=== PATIENT | male | born 1940 | race Caucasian/White ===

== ENCOUNTER 2016-12-12 08:40 | Outpatient (CLI) | payer MEDICARE, OTHER ==
--- NOTE | 2016-12-12 11:21 | Ultrasound Report ---
RIGHT UPPER QUADRANT ULTRASOUND: 12/12/2016 CLINICAL INDICATION: Abnormal liver enzymes. COMPARISON: 11/21/2015. TECHNIQUE: Real-time scanning was performed with shared services representative static images obtained. FINDINGS: The liver is echogenic, compatible with fatty infiltration. It measures 13.6 cm. No intrah epatic biliary dilatation is seen, but the common bile duct is prominent, measuring 1.5 cm (previousl y 1.3 cm). The gallbladder is surgically absent. The right kidney measures 10.2 cm, and is unremarkab le. IMPRESSION: FATTY INFILTRATION OF THE LIVER. STABLE PROMINENCE OF THE COMMON BILE DUCT. JOB #: [id number] EXT JOB #:[id number]
== END 2016-12-12 08:41 | disposition home or self-care (01) ==
LOC: DI 08:40
PROVIDERS: ATTEND Family Medicine
DX: K76.0 Fatty (change of) liver, not elsewhere classified (principal)
CPT/HCPCS: 76705

== ENCOUNTER 2024-11-14 17:44 | Inpatient (IN) ==
[2024-11-14] MEDS: methylPREDNISolone SUCCINATE 125 MG/2 ML VIAL IVP STA (18:01)
[2024-11-14] MEDS: IPRATROPIUM/ALBUTEROL 3 ML NEB INH STA (18:02)
[2024-11-14 18:13] LABS: HCT - HEMATOCRIT 45.4 % (42.0-52.0); HGB - HEMOGLOBIN 14.9 g/dL (14.0-18.0); MEAN PLATELET VOLUME 10.7 fL (7.4-11.4); NRBC ABSOLUTE COUNT (AUTO) 0.00 x10^3/uL; NUCLEATED RED BLOOD CELLS AUTO 0.0 /100WBC; PLT - PLATELET COUNT 193 10^3/uL (130-450); RED CELL DISTRIBUTION WIDTH 16.0 % (12.0-15.0)
[2024-11-14 18:16] LABS: VBG BASE EXCESS -3.5 mmol/L (-2 - +2); VBG PCO2 28.0 mmHg (41-51); VBG PH 7.466 (7.31-7.41); VBG PO2 27.2 mmHg (25-47); VBG TOTAL CO2 21.3 mmol/L (24-29)
[2024-11-14 18:32] LABS: ALT ALANINE AMINOTRANSFERASE 18.0 IU/L (10-60); AST ASPARTATE AMINOTRANSFERASE 22.0 IU/L (10-42); BUN - BLOOD UREA NITROGEN 23.0 mg/dL (6-20); CARBON DIOXIDE - CO2 24.0 mmol/L (21-32); CREATININE 1.4 mg/dL (0.6-1.3); GFR - MDRD 48.0 (>89)
--- NOTE | 2024-11-14 19:41 | XRAY Report ---
PROCEDURE: XR Chest 2V INDICATIONS: respiratory distress TECHNIQUE: 2 views of the chest were acquired. COMPARISON: December 12, 2014 FINDINGS: Surgical changes and devices: None. Lungs and pleura: No pleural effusions or pneumothorax. Extensive reticular opacity throughout the lungs. Mediastinum: Mediastinal contours appear normal. Heart size is normal. Bones and chest wall: No suspicious bony lesions. Overlying soft tissues appear unremarkable. IMPRESSION: Extensive reticular opacities throughout the lungs concerning for an acute or chronic diffuse lung disease. Reviewed by: Rafael Whipple MD on 11/14/2024 7:38 PM PDT Approved by: Rafael Whipple MD on 11/14/2024 7:38 PM PDT Station ID: [id number]
--- NOTE | 2024-11-14 20:23 | ED Physician Documentation ---
History of Present Illness Stated complaint Stated Complaint: RESP DISTRESS Chief complaint Chief Complaint: Resp Additonal information Additional information: Patient is an 84-year-old male with history of emphysema, pulmonary fibrosis, A- fib on warfarin. Patient states that over the last couple days he has had increasing dyspnea, weakness, and increased respiratory requirements. At baseline he wears 3 L oxygen nasal cannula. However, over the last several days they have had increased his baseline nasal cannula and still has O2 saturations that are not staying regularly in the upper 80s as is his baseline. He denies any recent fever, chills, cough, sore throat or other symptoms of infection. He denies chest pain, palpitations. Justhad increased work of breathing. Notably, he was seen by his filling station equipment mechanic in [place] last week, and no new medication or regimen changes were made at that time. On arrival to the [place] [facility] states that he was saturating at 66% on 6 L. He did not receive a DuoNeb or other treatment and route with EMS, but was put on a nonrebreather on 15 L, and was saturating in the upper 80s and low 90s. Currently he denies any chest pain, denies headache, visual changes, abdominal pain, changes to urination or bowel movements over the last few days. Review of Systems Status of ROS: See HPI Meds/Allgy Home Medications Ambulatory Orders Medication Instructions Recorded Confirmed alprazolam 0.25 mg tablet 0.25 mg PO ONCE PRN Anxiety 05/20/14 06/03/14 amlodipine 2.5 mg tablet (Norvasc) 2.5 mg PO DAILY 08/2706/03/14 calcium ER 600 mg (as carb,cit)-D3 1 ea PO DAILY 05/2006/03/14 12.5 mcg (500 unit) tablet, ext.rel cholecalciferol (vitamin D3) 50 2,000 unit PO DAILY 06/03/14 mcg (2,000 unit) capsule (Vitamin D3) dofetilide 250 mcg capsule 250 mcg PO BID 05/20/14 (Tikosyn) magnesium oxide-magnesium amino 300 mg PO DAILY 06/03/14 acid chelate 300 mg capsule (Magnesium (oxide/AA chelate)) metoprolol tartrate 25 mg tablet 50 mg PO DAILY 06/03/14 omeprazole 20 mg capsule,delayed 20 mg PO DAILY 06/03/14 release warfarin 5 mg tablet (Jantoven) 5 mg PO DAILY 05/20/14 06/03/14 Allergies Allergies Allergy/AdvReac Type Severity Reaction Status Date / Time celecoxib (From Celebrex) Allergy Intermediate Nausea Verified 11/14/24 18:25 latex Allergy Intermediate Rash Verified 11/14/24 18:25 tramadol HCl * (From Ultram) Allergy Intermediate Nausea Verified 11/14/24 18:25 NSAIDS (Non-Steroidal Allergy Unknown Unknown Verified 11/14/24 18:25 Anti-Inflamma adhesive Allergy Rash Verified 11/14/24 18:25 PFSH Active Problems All Active Problems (Updated 11/14/24 @ 21:33 by MICHAEL Summers) Atrial fibrillation (Chronic) Pulmonary fibrosis (Acute) Acute and chronic respiratory failure (Acute) Social History Social History Smoking Status: Former smoker If you are a former smoker, when did you quit? (Date/Year): 1995 Do you dip or chew tobacco?: No Do you vape?: No Level: Independent Do you feel safe in your home environment?: Yes History of physical, verbal, emotional, or financial abuse?: No Exam Exam Vital Signs: Vital Signs x48h Temp Pulse Resp BP Pulse Ox O2 Flow Rate 11/14/24 20:18 97 41 H 114/73 87 L 11/14/24 20:18 97 30 H 83 L 11/14/24 20:04 95 41 H 89 L 11/14/24 19:48 95 36 H 109/69 89 L 11/14/24 19:48 90 28 H 109/69 90 L 11/14/24 19:32 94 38 H 108/66 89 L 11/14/24 19:18 94 20 94/73 90 L 11/14/24 18:04 97 38 H 10 11/14/24 17:48 36.3 C L 104 H 26 H 152/91 H 91 L 15 Constitutional Appears approximate stated age, moderately increased work of breathing HENMT normocephalic Eyes conjunctivae normal Neck/C-Spine cervical full ROM noted Respiratory Diminished breath sounds throughout all lung ordonez. Fine crackles throughout right lung field with scattered few wheezes. Fine crackles also heard in left lower lobe. Diminished breath sounds in left upper lobe. Saturating at 89% on nonrebreather at 15 L. Cardiovascular Regular rhythm, tachycardic to the low 100s. Normal S1-S2, no murmurs. Gastrointestinal abdomen soft to palpation, nontender to palpation and nontender to percussion Genitourinary no CVA tenderness Back/Pelvis no thoracic spine tenderness and no lumbar spine tenderness Extremities normal to inspection Neurology student officer II-XII intact and GCS 15 Psychiatry mental status grossly normal and oriented x3 Skin skin color normal Results Vitals Vitals: Vital Signs - 24 hr 11/14/24 17:48 11/14/24 18:04 11/14/24 19:18 Temperature 36.3 C L Temperature Source Temporal Artery Scan Pulse Rate 104 H 97 94 Respiratory Rate 26 H 38 H 20 Blood Pressure 152/91 H 94/73 O2 Saturation 91 L 90 L O2 Source Non-rebreather mask Oxymask If not protocol: Oxygen Flow, liters/minute 15 10 Pain Intensity 0 11/14/24 19:32 11/14/24 19:48 11/14/24 19:48 Temperature Temperature Source Pulse Rate 94 90 95 Respiratory Rate 38 H 28 H 36 H Blood Pressure 108/66 109/69 109/69 O2 Saturation 89 L 90 L 89 L O2 Source If not protocol: Oxygen Flow, liters/minute Pain Intensity 11/14/24 20:04 11/14/24 20:18 11/14/24 20:18 Temperature Temperature Source Pulse Rate 95 97 97 Respiratory Rate 41 H 30 H 41 H Blood Pressure 114/73 O2 Saturation 89 L 83 L 87 L O2 Source If not protocol: Oxygen Flow, liters/minute Pain Intensity Oxygen O2 Source Oxymask Labs Labs: Laboratory Tests 11/14/24 11/14/24 11/14/24 18:00 19:35 20:33 WBC 13.1 H RBC 5.15 Hgb 14.9 Hct 45.4 MCV 88.2 MCH 28.9 MCHC 32.8 RDW 16.0 H Plt Count 193 MPV 10.7 Neut # (Auto) 10.3 H Lymph # (Auto) 1.1 L Harrison # (Auto) 1.5 H Eos # (Auto) 0.1 Baso # (Auto) 0.0 Absolute Nucleated RBC 0.00 Nucleated RBC % 0.0 VBG pH 7.466 H VBG pCO2 28.0 L VBG pO2 27.2 VBG HCO3 20.4 L VBG Total CO2 21.3 L VBG O2 Saturation 35.0 L VBG Base Excess -3.5 L Sodium 137 Potassium 3.6 Chloride 103 Carbon Dioxide 24 Anion Gap 10.0 BUN 23 H Creatinine 1.4 H Estimated GFR (MDRD) 48 L Glucose 147 H Calcium 8.7 Total Bilirubin 1.9 H AST 22 ALT 18 Alkaline Phosphatase 100 Troponin I High Sens 30.0 H* 35.4 H* B-Natriuretic Peptide 804 H Total Protein 7.1 Albumin 3.8 Globulin 3.3 Albumin/Globulin Ratio 1.2 Procalcitonin Immunoas 0.16 Nasal Adenovirus (PCR) NOT DETECTED Nasal B. parapertussis DNA (PCR) NOT DETECTED Nasal Coronavir 229E PCR NOT DETECTED Nasal Coronavir HKU1 PCR NOT DETECTED Nasal Coronavir NL63 PCR NOT DETECTED Nasal Coronavir OC43 PCR NOT DETECTED Nasal Enterovir/Rhinovir PCR NOT DETECTED Nasal Influenza B PCR NOT DETECTED Nasal Influenza A PCR NOT DETECTED Nasal Parainfluen 1 PCR NOT DETECTED Nasal Parainfluen 2 PCR NOT DETECTED Nasal Parainfluen 3 PCR NOT DETECTED Nasal Parainfluen 4 PCR NOT DETECTED Nasal RSV (PCR) NOT DETECTED Nasal B.pertussis DNA PCR NOT DETECTED Nasal C.pneumoniae (PCR) NOT DETECTED Virgil Human Metapneumo PCR NOT DETECTED Nasal M.pneumoniae (PCR) NOT DETECTED Nasal SARS-CoV-2 (PCR) NOT DETECTED PD Medical Decision Making ED course ED course: Assessment: Patient is an 84-year-old male who presents via EMS for respiratory distress/hypoxia. Patient has a history of emphysema, as well as pulmonary fibrosis. According to patient and at bedside he has been gradually having escalating oxygen requirements over the last week. When EMS arrived he was saturating at 66% on 5 L. Denies fever, chills, productive cough. Denies chest pain or palpitations. DDx: Includes but not limited to, acute on chronic hypoxic respiratory failure, pulmonary fibrosis, viral upper respiratory illness, viral pneumonia, bacterial pneumonia, COPD exacerbation, etc. Workup: CBC with white count of 13.1. VBG with a pH of 7.466, pCO2 of 28, bicarb 20.4. CMP with a BUN of 23, creatinine 1.4 with unknown baseline. T. bili 1.9. Initial troponin 30.0, repeat at 2-1/2 hours is 35.4. Respiratory panel is negative. Chest x-ray with extensive reticular fine opacities throughout his lungs which appear to suggest acute on chronic lung disease. CT chest with chronic idiopathic pulmonary fibrosis without other acute or other superimposed abnormality. Treatment: Methylprednisolone 125 milligrams, DuoNeb. Discussion: Patient had improvement after treatments and nonrebreather. Was saturating routinely at 88 to 92% on [address], x-ray, respiratory panel, procalcitonin, and workup overall do not suggest viral upper respiratory illness. Does not appear to have a pneumonia. Likely this is acute on chronic worsening of pulmonary fibrosis. He has only had a few scattered wheezes, and did not necessarily appear consistent with a COPD exacerbation. However after DuoNebs he did report some modest symptomatic improvement. Hopefully the steroids that we gave him today will help him with his underlying fibrosis. I discussed his presentation with on-call hospitalist and felt that he should be admitted the ICU given his high chance of increasing respiratory requirements while admitted for respiratory failure. Explained to patient that with his tenuous respiratory status he would need to go to the ICU and discharge home would not be reasonable to which he was agreeable. Patient was transferred to the ICU during my shift with no other acute events transpiring. Discharge Plan Discharge Patient Disposition: [facility] DC/Xfer Condition: Fair Clinical Impression: Acute and chronic respiratory failure Interventions: ED Admission Assessment Last Done: 11/14/24 21:10 Vitals documented within 30 minutes of discharge?: Yes
--- NOTE | 2024-11-14 20:50 | CT Report ---
PROCEDURE: CT Chest W INDICATIONS: hx of pulm fibrosis, respiratory distress today CONTRAST: 70cc [id number] TECHNIQUE: After the administration of intravenous contrast, a CT scan of the chest was performed. Images were recorded and evaluated at appropriate window settings. Reformats: axial MIP of the chest, coronal and sagittal. For radiation dose reduction, the following was used: automated exposure control, adjustment of mA and/or kV according to patient size. COMPARISON: None. FINDINGS: Image quality: Diagnostic. Chest wall and lower neck: No thyroid nodule which requires sonographic follow up. No breast mass. No axillary or supraclavicular adenopathy by size. Lungs and pleura: Extensive reticulation and honeycombing with no superimposed acute consolidation. No pleural effusions. No pneumothorax. No suspicious pulmonary nodules which require follow up. Mediastinum: Heart size is normal. No pericardial effusion. No large vessel abnormality. No mediastinal adenopathy by size criteria. Bones: No aggressive osseous abnormality. Upper Abdomen: Cholecystectomy. IMPRESSION: Chronic idiopathic pulmonary fibrosis. No superimposed acute abnormality. Reviewed by: Rafael Whipple MD on 11/14/2024 8:47 PM PDT Approved by: Rafael Whipple MD on 11/14/2024 8:47 PM PDT Station ID: [id number]
[2024-11-14 20:51] LABS: CORONAVIRUS 229E-RESP PCR NOT DETECTED; CORONAVIRUS HKU1-RESP PCR NOT DETECTED
[2024-11-14 20:52] LABS: B. PARAPERTUSSIS- RESP PCR PAN NOT DETECTED; B. PERTUSSIS- RESP PCR PANEL NOT DETECTED; C. PNEUMONIAE- RESP PCR PANEL NOT DETECTED; CORONAVIRUS NL63-RESP PCR NOT DETECTED; CORONAVIRUS OC43-RESP PCR NOT DETECTED; HUMAN METAPNEUMOVIRUS NOT DETECTED; INFLUENZA A- RESP PCR PANEL NOT DETECTED; INFLUENZA B - RESP PCR PANEL NOT DETECTED; M. PNEUMONIAE- RESP PCR PANEL NOT DETECTED; PARAINFLUENZA VIRUS 1 NOT DETECTED; PARAINFLUENZA VIRUS 2 NOT DETECTED; PARAINFLUENZA VIRUS 4 NOT DETECTED; RHINOVIRUS/ENTEROVIRUS NOT DETECTED; RSV- RESP PCR PANEL NOT DETECTED; SARS-CoV-2 -RESP PCR PANEL NOT DETECTED
--- NOTE | 2024-11-14 20:52 | HISTORY & PHYSICAL EXAMINATION ---
Chief Complaint Chief Complaint Chief Complaint: shortness of breath History of Present Illness Admitted From Admitted From:: home History Obtained From Records Reviewed: ED provider note History obtained from: patient, spouse and son at bedside History of Present Illness HPI Comment/Other: 84-year-old male who is oxygen dependent on 3 L at home presents to the emergency department with a 4 to 5-day history of increasing shortness of breath and increasing oxygen requirements at home. It was reported by EMS that when they arrived at his home he was satting 66% on 5 L of oxygen via nasal cannula. His diagnosis of pulmonary fibrosis is quite recent. He saw pulmonology, Dr. Hill just within the last 2 weeks for the first time. Since he has been in the emergency department he has received bronchodilators and steroids. He is somewhat improved, more comfortable and less dyspneic on a nonrebreather mask but still with tachypnea and dropping oxygen saturations with any activity at all. Even moving about in bed causes him to desaturate. He has not had any recent URI, nor has anyone at home been sick. has not had fever or chills. Brief goals of care discussion held in the ED. This patient does not want to be permanently on machines to live, but wants attempts at resuscitation. has never heard of a POLST, and thinks that he wants to be full code. he does not understand any prognosis for his pulmonary fibrosis. His is his surrogate medical decision maker. Meds/Allgy Home Medications Ambulatory Orders Medication Instructions Recorded Confirmed alprazolam 0.25 mg tablet 0.25 mg PO ONCE PRN Anxiety 05/20/14 06/03/14 amlodipine 2.5 mg tablet (Norvasc) 2.5 mg PO DAILY 08/2706/03/14 calcium ER 600 mg (as carb,cit)-D3 1 ea PO DAILY 05/2006/03/14 12.5 mcg (500 unit) tablet, ext.rel cholecalciferol (vitamin D3) 50 2,000 unit PO DAILY 06/03/14 mcg (2,000 unit) capsule (Vitamin D3) dofetilide 250 mcg capsule 250 mcg PO BID 05/20/14 (Tikosyn) magnesium oxide-magnesium amino 300 mg PO DAILY 04/07/ 15 04/21/15 acid chelate 300 mg capsule (Magnesium (oxide/AA chelate)) metoprolol tartrate 25 mg tablet 50 mg PO DAILY 06/03/14 omeprazole 20 mg capsule,delayed 20 mg PO DAILY 06/03/14 release warfarin 5 mg tablet (Jantoven) 5 mg PO DAILY 05/20/14 06/03/14 Allergies Allergies Allergy/AdvReac Type Severity Reaction Status Date / Time celecoxib (From Celebrex) Allergy Intermediate Nausea Verified 11/14/24 18:25 latex Allergy Intermediate Rash Verified 11/14/24 18:25 tramadol HCl * (From Ultram) Allergy Intermediate Nausea Verified 11/14/24 18:25 NSAIDS (Non-Steroidal Allergy Unknown Unknown Verified 11/14/24 18:25 Anti-Inflamma adhesive Allergy Rash Verified 11/14/24 18:25 PFSH Active Problems All Active Problems (Updated 11/14/24 @ 21:33 by MICHAEL Summers) Atrial fibrillation (Chronic) Pulmonary fibrosis (Acute) Acute and chronic respiratory failure (Acute) Social History Social History If you are a former smoker, when did you quit? (Date/Year): 1995 Do you dip or chew tobacco?: No Do you feel safe in your home environment?: Yes History of physical, verbal, emotional, or financial abuse?: No POLST Patient has POLST: No Review of Systems Status of ROS: 10 or more systems reviewed and unremarkable except as noted in history and below Prior Level of Functionality: independent at home. increasing difficulty with activities. Exam Exam Vital Signs: Vital Signs x48h Temp Pulse Pulse Resp BP BP Pulse Ox 11/14/24 21:15 37.8 C 99 20 125/85 87 L 11/14/24 20:48 98 40 H 123/76 89 L 11/14/24 20:18 97 41 H 114/73 87 L 11/14/24 20:18 97 30 H 83 L 11/14/24 20:04 95 41 H 89 L 11/14/24 19:48 95 36 H 109/69 89 L 11/14/24 19:48 90 28 H 109/69 90 L 11/14/24 19:32 94 38 H 108/66 89 L 11/14/24 19:18 94 20 94/73 90 L 11/14/24 18:04 97 38 H 11/14/24 17:48 36.3 C L 104 H 26 H 152/91 H 91 L O2 Flow Rate 11/14/24 21:15 7 11/14/24 20:48 11/14/24 20:18 11/14/24 20:18 11/14/24 20:04 11/14/24 19:48 11/14/24 19:48 11/14/24 19:32 11/14/24 19:18 11/14/24 18:04 10 11/14/24 17:48 15 Constitutional normal general appearance and no apparent distress appear dyspneic and mildly uncomfortable. HENMT normocephalic, external ears normal, nasal mucous membranes normal and dentition normal Eyes conjunctivae normal Neck/C-Spine visual inspection normal Lymph no lymphadenopathy noted Chest inspection of chest normal and palpation of chest normal Respiratory breath sounds equal bilaterally, no wheezes and no use of accessory muscles fine crackles throughout. tachypneic. Cardiovascular normal heart rate noted 1+ edema at ankles. Gastrointestinal abdomen normal to inspection Back/Pelvis spine normal to inspection Extremities normal to inspection Neurology filling station attendant II-XII intact and GCS 15 Psychiatry mental status grossly normal, oriented x3, thought process normal, cooperative and affect normal Skin slight cyanosis noted at the fingertips, tip of nose, around his lips Conclusion/Plan Problem List (1) Acute and chronic respiratory failure: Plan: Acute on chronic hypoxic respiratory failure. This patient is oxygen dependent at home on 3 L via nasal cannula he has been experiencing increasing hypoxia at home for the last 4 to 5 days. Increasing dyspnea on any type of exertion and decreasing oxygen saturations 66% at home on 5 L via nasal cannula. He was brought into the hospital on a nonrebreather. He was given DuoNeb and Solu- Medrol in the emergency department. He continues to require nonrebreather to maintain saturations greater than 88%. And he remains tachypneic with a rate in the high 30s to low 40s. He has had a chest CT to rule out other causes aside from worsening pulmonary fibrosis. The chest CT is significant for pulmonary fibrosis. Respiratory PCR panel is negative. He is not coughing up significant amounts of sputum. I had very little in the way of background clinical information on this patient. His primary care provider is Dr. Nassar and in general he tends to go to [facility]. They [place] of [place] and this was the closest place for them to come given his current situation. I do not know if this patient has right heart failure. I do not know if he has an echocardiogram from the past. I have ordered an echocardiogram for the morning.. My plan is to admit him to the ICU for close respiratory monitoring overnight. He may require BiPAP ventilation overnight. At this time the patient would like to be intubated if his respiratory status requires it Discussed with Dr. Hunt in the emergency department and the decision was made to admit this patient for steroids bronchodilators and close respiratory monitoring in the ICU.. (2) Pulmonary fibrosis: Plan: Idiopathic pulmonary fibrosis. Just recently evaluated by tests superintendent for the first time. Patient seems unaware regarding the serious prognosis that is typically associated with pulmonary fibrosis. I have requested Dr. Hill's most recent office note and would expect to receive this in the morning as it is currently after office hours. This patient has an elevated BNP of around 800. He also shows 1+ pedal edema in his lower extremities. I believe this is likely secondary to right heart failure. I have ordered an echocardiogram for the morning. Overnight my plan is to support him with steroids to reduce inflammation and bronchodilators. (3) Atrial fibrillation: Plan: Atrial fibrillation, home medication list has not been reconciled at this time but I felt it best to go ahead and order his metoprolol to tartrate 50 mg daily. He is anticoagulated on warfarin. I have ordered an a.m. INR. Can then dose his warfarin accordingly. His heart rate seems well-controlled this evening. Initial troponin was 30 at 1800 repeat 2-1/2 hours later is 35. I believe this is just related to the strain associated with what is most likely right heart failure. He had an EKG on admission this evening which shows sinus tachycardia at a rate of 106. Plan I have spent 85 minutes in the care of this patient today. This includes time [id number], review and ordering of diagnostic imaging and laboratory studies and consultation with other providers. Monitoring the patient's signs symptoms, evaluation of medication effectiveness and patient's response to treatment. Lab Results Lab results reviewed: Yes 11/14/24 18:00 11/14/24 18:00 Diagnostic Imaging Results Diagnostic Imaging Results Comments: Chest x-ray shows pulmonary fibrosis new Chest CT also shows pulmonary fibrosis EKG Results EKG Interpreted Independently: Yes EKG Findings: Sinus tachycardia patient not currently in atrial fibrillation. Core Measures Anticipated LOS I expect patient to be DC'd or transferred within 96 hours.: Yes DVT/VTE - Prophylaxis VTE/DVT Device ordered at admit?: Yes Not Ordered - Medical Reason: Not indicated (Warfarin treatment)
[2024-11-14] MEDS ORDERED: ONDANSETRON ODT 4 MG TABLET TL PRN (20:59)
[2024-11-14] MEDS ORDERED: ACETAMINOPHEN 650 MG SUPP PR PRN (20:59)
[2024-11-14] MEDS ORDERED: IPRATROPIUM/ALBUTEROL 3 ML NEB INH PRN (20:59)
[2024-11-14] MEDS: SODIUM CHLORIDE FLUSH 0.9% 10 ML SYRINGE IVP SCH (22:09)
[2024-11-14] MEDS: methylPREDNISolone SUCCINATE 40 MG/ML VIAL IVP SCH (22:09)
[2024-11-15 05:56] LABS: HCT - HEMATOCRIT 41.3 % (42.0-52.0); HGB - HEMOGLOBIN 13.8 g/dL (14.0-18.0); MEAN PLATELET VOLUME 10.9 fL (7.4-11.4); NRBC ABSOLUTE COUNT (AUTO) 0.00 x10^3/uL; NUCLEATED RED BLOOD CELLS AUTO 0.0 /100WBC; PLT - PLATELET COUNT 170 10^3/uL (130-450); RED CELL DISTRIBUTION WIDTH 15.7 % (12.0-15.0)
[2024-11-15 06:14] LABS: BUN - BLOOD UREA NITROGEN 24.0 mg/dL (6-20); CARBON DIOXIDE - CO2 22.0 mmol/L (21-32); CREATININE 1.2 mg/dL (0.6-1.3); GFR - MDRD 57.0 (>89)
[2024-11-15 06:26] LABS: INR 3.0 (0.8-1.2); PT - PROTHROMBIN TIME 33.0 secs (9.9-12.6)
--- NOTE | 2024-11-15 07:08 | PROVIDER PROGRESS NOTE ---
Subjective Prog Note Date Prog Note Date: 11/15/24 Prog Note Time: 07:03 Subjective Subjective: The patient is an 84-year-old male with a recent diagnosis of pulmonary fibrosis who presents with acute on chronic hypoxemic respiratory failure. Reportedly with saturations down in the 60s in the community prior to arrival to the hospital. He has required high levels of oxygen thus far. VBG in the ED revealed very minor respiratory alkalosis. Otherwise his BNP has been relatively unremarkable. His kidney function is mildly decreased on admission but resolves on hospital day 1. Overnight from admission, he initially started on 8 to 9 L via simple mask. He has been weaned down to 4 L and satting 91%. He becomes very dyspneic and desaturates with mild exertion. Labs this morning reveal INR of 3, creatinine 1.2, hemoglobin 13.8. No leukocytosis. Extensive conversation with the family and the patient at bedside. See ACP note from today. Current Medications Current Medications Current Medications: Current Medications Generic Name Dose Route Start Last Admin Trade Name Freq PRN Reason Stop Dose Admin Acetaminophen 650 mg 11/14/24 20:59 Acetaminophen 650 Mg Supp MT Q6HR PRN Pain or Fever > 38C (100.4F) Albuterol/Ipratropium 3 ml 11/14/24 20:59 Ipratropium/Albuterol 3 Ml Neb INH Q4HR PRN Wheezing Methylprednisolone 40 mg 11/14/24 22:00 11/15/24 05:58 Methylprednisolone Succinate 40 Mg/Ml Vial IVP 40 mg TID REN Administration Metoprolol Tartrate 50 mg 11/15/24 09:00 Metoprolol Tartrate 50 Mg Tablet PO DAILY [facility] Ondansetron HCl 4 mg 11/14/24 20:59 Ondansetron Odt 4 Mg Tablet TL Q4HR PRN Nausea / Vomiting Sodium Chloride 10 ml 11/14/24 20:59 Sodium Chloride Flush 0.9% 10 Ml Syringe IVP PRN PRN NEEDED PER PROVIDER ORDERS Sodium Chloride 10 ml 11/15/24 01:00 11/14/24 22:09 Sodium Chloride Flush 0.9% 10 Ml Syringe IVP 10 ml 0100,0900,1700 REN Administration Objective Vital Signs/Intake & Output Vital Signs: Vital Signs x48h Temp Pulse Resp BP BP Pulse Ox O2 Flow Rate 11/15/24 06:00 36.7 C 79 21 98/69 89 L 4 11/15/24 05:30 20 92 4 11/15/24 05:10 36 H 83 L 4 11/15/24 05:00 80 23 109/67 90 L 4 11/15/24 04:00 73 19 94/61 95 4 11/15/24 03:00 75 22 99/59 L 96 4 11/15/24 02:00 84 19 100/66 97 4 11/15/24 01:00 80 23 91/60 93 4 11/15/24 00:30 36.6 C 90 29 H 99/64 89 L 4 11/15/24 00:00 85 23 82/52 L 96 6 Intake & Output: Intake & Output 11/12/24 11/13/24 11/14/24 11/15/24 23:59 23:59 23:59 23:59 Output Total 0 / 0 350 / 350 Balance 0 / 0 -350 / -350 Weight (kg) 70.5 kg Objective Comments/Other: GEN: No acute distress HEENT: NC/AT, normal appearance of external ears and nose. Hearing baseline. Cardiac: Irregular rhythm, rate controlled. No murmurs appreciated. Pulm: Fine crackles diffusely throughout his lungs. No wheezing appreciated. No cough. Abdomen: Soft, nontender, nondistended. No rebound or guarding Extremities: Moves all 4 extremities equally. Normal tone. Neuro: Face symmetric, CN II through XII intact grossly. No focal deficits appreciated Psych: Mood euthymic with congruent affect. Good insight. Exceptional historian Lab Results 11/15/24 04:59 11/15/24 04:59 Other Labs: Lab Results x24hrs 11/15/24 11/14/24 11/14/24 Range/Units 04:59 21:25 20:33 WBC 9.2 (4.8-10.8) x10^3/uL RBC 4.70 (4.70-6.10) 10^6/uL Hgb 13.8 L (14.0-18.0) g/dL Hct 41.3 L (42.0-52.0) % MCV 87.9 (80.0-94.0) fL MCH 29.4 (27.0-31.0) pg MCHC 33.4 (32.0-36.0) g/dL RDW 15.7 H (12.0-15.0) % Plt Count 170 (130-450) 10^3/uL MPV 10.9 (7.4-11.4) fL Neut # (Auto) 8.3 H (1.5-6.6) 10^3/uL Lymph # (Auto) 0.7 L (1.5-3.5) 10^3/uL Ector # (Auto) 0.2 (0.0-1.0) 10^3/uL Eos # (Auto) 0.0 (0.0-0.7) 10^3/uL Baso # (Auto) 0.0 (0.0-0.1) 10^3/uL Absolute Nucleated RBC 0.00 x10^3/uL Nucleated RBC % 0.0 /100WBC PT 33.0 H (9.9-12.6) secs INR 3.0 H (0.8-1.2) VBG pH (7.31-7.41) VBG pCO2 (41-51) mmHg VBG pO2 (25-47) mmHg VBG HCO3 (23-28) mmol/L VBG Total CO2 (24-29) mmol/L VBG O2 Saturation (60-80) % VBG Base Excess (-2 - +2) mmol/L Sodium 137 (135-145) mmol/L Potassium 4.0 (3.5-4.5) mmol/L Chloride 106 (101-111) mmol/L Carbon Dioxide 22 (21-32) mmol/L Anion Gap 9.0 (6-13) BUN 24 H (6-20) mg/dL Creatinine 1.2 (0.6-1.3) mg/dL Estimated GFR (MDRD) 57 L (>89) Glucose 181 H (74-104) mg/dL Calcium 8.5 (8.5-10.3) mg/dL Total Bilirubin (0.2-1.0) mg/dL AST (10-42) IU/L ALT (10-60) IU/L Alkaline Phosphatase (42-121) IU/L Troponin I High Sens 35.4 H* (2.3-19.7) ng/L B-Natriuretic Peptide (5-100) pg/mL Total Protein (6.4-8.9) g/dL Albumin (3.2-5.5) g/dL Globulin (2.1-4.2) g/dL Albumin/Globulin Ratio (1.0-2.2) Procalcitonin Immunoas (<0.5) ng/mL Nasal Adenovirus (PCR) Nasal B. parapertussis DNA (PCR) Nasal Coronavir 229E PCR Nasal Coronavir HKU1 PCR Nasal Coronavir NL63 PCR Nasal Coronavir OC43 PCR Nasal Enterovir/Rhinovir PCR Nasal Influenza B PCR Nasal Influenza A PCR Nasal Parainfluen 1 PCR Nasal Parainfluen 2 PCR Nasal Parainfluen 3 PCR Nasal Parainfluen 4 PCR Nasal RSV (PCR) Nasal Screen MRSA (PCR) NEGATIVE (NEGATIVE) Nasal B.pertussis DNA PCR Nasal C.pneumoniae (PCR) Virgil Human Metapneumo PCR Nasal M.pneumoniae (PCR) Nasal SARS-CoV-2 (PCR) 11/14/24 11/14/24 Range/Units 19:35 18:00 WBC 13.1 H (4.8-10.8) x10^3/uL RBC 5.15 (4.70-6.10) 10^6/uL Hgb 14.9 (14.0-18.0) g/dL Hct 45.4 (42.0-52.0) % MCV 88.2 (80.0-94.0) fL MCH 28.9 (27.0-31.0) pg MCHC 32.8 (32.0-36.0) g/dL RDW 16.0 H (12.0-15.0) % Plt Count 193 (130-450) 10^3/uL MPV 10.7 (7.4-11.4) fL Neut # (Auto) 10.3 H (1.5-6.6) 10^3/uL Lymph # (Auto) 1.1 L (1.5-3.5) 10^3/uL Ector # (Auto) 1.5 H (0.0-1.0) 10^3/uL Eos # (Auto) 0.1 (0.0-0.7) 10^3/uL Baso # (Auto) 0.0 (0.0-0.1) 10^3/uL Absolute Nucleated RBC 0.00 x10^3/uL Nucleated RBC % 0.0 /100WBC PT (9.9-12.6) secs INR (0.8-1.2) VBG pH 7.466 H (7.31-7.41) VBG pCO2 28.0 L (41-51) mmHg VBG pO2 27.2 (25-47) mmHg VBG HCO3 20.4 L (23-28) mmol/L VBG Total CO2 21.3 L (24-29) mmol/L VBG O2 Saturation 35.0 L (60-80) % VBG Base Excess -3.5 L (-2 - +2) mmol/L Sodium 137 (135-145) mmol/L Potassium 3.6 (3.5-4.5) mmol/L Chloride 103 (101-111) mmol/L Carbon Dioxide 24 (21-32) mmol/L Anion Gap 10.0 (6-13) BUN 23 H (6-20) mg/dL Creatinine 1.4 H (0.6-1.3) mg/dL Estimated GFR (MDRD) 48 L (>89) Glucose 147 H (74-104) mg/dL Calcium 8.7 (8.5-10.3) mg/dL Total Bilirubin 1.9 H (0.2-1.0) mg/dL AST 22 (10-42) IU/L ALT 18 (10-60) IU/L Alkaline Phosphatase 100 (42-121) IU/L Troponin I High Sens 30.0 H* (2.3-19.7) ng/L B-Natriuretic Peptide 804 H (5-100) pg/mL Total Protein 7.1 (6.4-8.9) g/dL Albumin 3.8 (3.2-5.5) g/dL Globulin 3.3 (2.1-4.2) g/dL Albumin/Globulin Ratio 1.2 (1.0-2.2) Procalcitonin Immunoas 0.16 (<0.5) ng/mL Nasal Adenovirus (PCR) NOT DETECTED Nasal B. parapertussis DNA (PCR) NOT DETECTED Nasal Coronavir 229E PCR NOT DETECTED Nasal Coronavir HKU1 PCR NOT DETECTED Nasal Coronavir NL63 PCR NOT DETECTED Nasal Coronavir OC43 PCR NOT DETECTED Nasal Enterovir/Rhinovir PCR NOT DETECTED Nasal Influenza B PCR NOT DETECTED Nasal Influenza A PCR NOT DETECTED Nasal Parainfluen 1 PCR NOT DETECTED Nasal Parainfluen 2 PCR NOT DETECTED Nasal Parainfluen 3 PCR NOT DETECTED Nasal Parainfluen 4 PCR NOT DETECTED Nasal RSV (PCR) NOT DETECTED Nasal Screen MRSA (PCR) (NEGATIVE) Nasal B.pertussis DNA PCR NOT DETECTED Nasal C.pneumoniae (PCR) NOT DETECTED Virgil Human Metapneumo PCR NOT DETECTED Nasal M.pneumoniae (PCR) NOT DETECTED Nasal SARS-CoV-2 (PCR) NOT DETECTED Diagnostic Imaging Diagnostic Imaging Results: positive Final report reviewed and Read independently Diagnostic Imaging Comments: Extensive honeycombing on his chest CT. Consistent with diagnosis of pulmonary fibrosis. No focal consolidations. No effusions. Assessment/Plan Problem List (1) Acute and chronic respiratory failure: Impression: Stable to minimally improved Downtrending oxygen requirement, but still requiring significant oxygen via nasal cannula. Suspect his presentation is mostly related to his pulmonary fibrosis given his progressive presentation. Workup subacute causes of fibrosis flare are unfortunately unrevealing. Most of this is likely idiopathic. Negative viral panel. No focal consolidations. No clear environmental triggers. - Wean oxygen as tolerated, goal sat 88 to 92% - Continue Solu-Medrol 40 mg 3 times daily for now, if he responds we will likely apply a slow taper - Will not intubate, okay for noninvasive ventilation, see ACP note 11/15 - No clear indication for antibiotics at this time - Trialing one-time dose of Lasix IV to assess for effect - Pending echocardiogram Qualifiers: Respiratory failure complication: hypoxia Qualified Code(s): J96.21 - Acute and chronic respiratory failure with hypoxia (2) Pulmonary fibrosis: Impression: An unfortunate new diagnosis for this patient. 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 Typical findings on chest CT. Diagnosed in February 2024, has had progression of his disease since then. Just met with pulmonology in October. His entry examiner is Dr. Júnior Hill, records request was placed by admitting hospitalist. - Treating for flare as above - Will follow-up on Dr. Hill last note - Given the progressive nature of this disease, this gentleman may just be reaching the end stages of his fibrosis. - If he survives, may benefit from antifibrotic agents at discharge, will assess with his entry examiner at that time - Family considering hospice - Reasonable to continue GLAZE CARRIER inhaler - Consider palliative approaches as well, breathing coaching will try and get a fan in his room to blow in his face this may help with dyspnea (3) Atrial fibrillation: Impression: Longstanding history of atrial fibrillation. Normally anticoagulated with warfarin. INR on admission 3.0. He currently is rate controlled. - Continue Lopressor 50 mg twice daily, home med - Resume warfarin tomorrow, INR high end of therapeutic today. - Ongoing GOC as above - Echocardiogram as above Qualifiers: Atrial fibrillation type: longstanding persistent Qualified Code(s): I 48.11 - Longstanding persistent atrial fibrillation (4) Hypertension: Impression: Patient is typically on amlodipine for hypertension. Notably amlodipine and calcium channel blockers may provide a protective role in fibrosis, do not see any clear research that suggest that they are helpful in a flare. Will hold off on resuming this at this point in time. - Hold amlodipine 2.5 mg twice daily - Metoprolol as above Qualifiers: Hypertension type: primary hypertension Qualified Code(s): I10 - Essential (primary) hypertension (5) Anxiety: Impression: Patient on alprazolam 0.25 mg twice daily every 12 hours as needed in the community. Reasonable to resume here to avoid any withdrawal symptoms. (6) Dysphagia: Impression: Patient describes a globus sensation that he has been having for months and is being worked up in the community. Interestingly has been associated with a scant hemoptysis. Not sure if this is an eosinophilic esophagitis or other atopic reaction. Happens with certain foods but not all foods. He is not bothered by this for now. He has tolerated his diet so far. Had planned for ENT follow-up on 11/18, this appointment has been pending for some time. - Noted, of unclear significance Qualifiers: Dysphagia type: esophageal phase Qualified Code(s): R13.19 - Other dysphagia
[2024-11-15] MEDS: METOPROLOL TARTRATE 50 MG TABLET PO SCH (08:05)
--- NOTE | 2024-11-15 10:27 | ADVANCE CARE PLANNING NOTE ---
Advance Care Planning Planning Encounter Date: 11/15/24 Time: 10:25 Diagnosis for Encounter (1) Acute and chronic respiratory failure: (2) Pulmonary fibrosis: (3) Atrial fibrillation: Encounter Additional Discussion: Mr. Leon is a very pleasant 56-year-old gentleman I met with the patient, his , and his adult son Loy at bedside. Patient is able to participate in the conversation. We discussed the progressive nature of his idiopathic pulmonary fibrosis. He is getting used to his new diagnosis. He only was incidentally diagnosed with this condition earlier this year after he had pneumonia. He has only had 1 appointment with pulmonology and that was only done within the last month. He has noted over the last year that he has had progressive chronic hypoxemic respiratory failure needing more and more oxygen at home. He has a concentrator at home that he has been using between 3 and 5 L on. This worsened over the week preceding admission. He stated really good understanding of the progressive nature of his disease and there is not any particular treatment that can reverse or improve his fibrosis. He knows that there may be medicines that can slow the progression of it, but acknowledges that he is nearing a terminal point of chronic hypoxemia. We discussed that he is currently in a flare, and I do not know how much he will improve with acute treatments. We will keep trying steroids and a brief trial of diuretic today to attempt to improve his oxygenation. I described that I do not feel intubation serves his body much benefit. Without a clear reversible cause of the progression of his disease, I feel that if he were to be intubated he would likely on the ventilator. He agrees that this is not what he would like. We agreed that he would be amenable to noninvasive ventilation as we attempted the treatments above. Seeing that he would not want invasive ventilation, CPR is also not a reasonable therapeutic intervention for him. Patient is strongly considering with his family at bedside whether hospice is the next best step for him given the progressive nature of his disease over the last 9 months. He is aware of hospice, his is very aware of hospice and is worked with other friends and family have been on hospice. For now, the patient is DNR, DNI. We will attempt to optimize his respiratory status, but if unable to do so he may go home with hospice. Code Status: Do Not Attempt Resuscitation Time spent on advance care plannin
--- NOTE | 2024-11-15 11:38 | PHARMACY PROGRESS NOTE ---
Best Possible Medication History Admit Date and Time: 11/14/242034 Home Medications Medication Instructions Recorded Confirmed Type alprazolam 0.25 mg tablet 0.25 mg PO BID Anxiety 05/2011/15/24 History amlodipine 2.5 mg tablet (Norvasc) 2.5 mg PO BID 05/2011/15/24 History omeprazole 20 mg capsule,delayed 20 mg PO BID 05/20/14 11/15/24 History release warfarin 5 mg tablet (Jantoven) 5 mg PO DAILY 05/20/14 11/15/24 History budesonide 160 mcg-glycopyr 9 2 inh inhalation DAILY 1 11/15/24 History mcg-formot 4.8 mcg/actuation HFA inhaler (Breztri Aerosphere) cholecalciferol (vitamin D3) 25 2,000 unit PO DAILY 11/15/24 History mcg (1,000 unit) tablet cholestyramine 4 gram oral powder 4 g PO DAILY 5 11/15/24 History for suspension in a packet (Cholestyramine Light) metoprolol tartrate 50 mg tablet 50 mg PO BID 11/15/24 11/15/24 History Processed by: Pharmacy Medications reviewed in ED?: No Medication History completed: Yes Patient Interview: Completed Secondary Source(s): Written medication list (written list says metoprolol 25mg bid, insurance filling 50mg bid and confirms not splitting the tablet prior to giving), Spouse/Significant other and Insurance records [facility] Statement: As the person ultimately responsible for medication therapy, providers are able to order a medication from an existing home medication list in [facility] via the "Reconcile Routine" prior to Confirmation of that medication by direct support professional. Such practice is discouraged except when the physician, in their clinical judgment, deems that a medical need exists for a medication without regard to previous use.
[2024-11-15] MEDS ORDERED: FUROSEMIDE 20 MG/2 ML VIAL IVP SCH (13:00)
[2024-11-15] MEDS ORDERED: NON FORMULARY MED (Budesonide-Glycopyr-Formoterol [Breztri Aerosphere] 160-9-4.8 mcg/actua INH SCH (13:00)
[2024-11-15] MEDS: FUROSEMIDE 20 MG/2 ML VIAL IVP ONE (14:53)
[2024-11-16 04:33] LABS: HCT - HEMATOCRIT 39.5 % (42.0-52.0); HGB - HEMOGLOBIN 12.7 g/dL (14.0-18.0); MEAN PLATELET VOLUME 11.0 fL (7.4-11.4); NRBC ABSOLUTE COUNT (AUTO) 0.00 x10^3/uL; NUCLEATED RED BLOOD CELLS AUTO 0.0 /100WBC; PLT - PLATELET COUNT 181 10^3/uL (130-450); RED CELL DISTRIBUTION WIDTH 15.7 % (12.0-15.0)
[2024-11-16 04:42] LABS: INR 3.7 (0.8-1.2); PT - PROTHROMBIN TIME 40.3 secs (9.9-12.6)
[2024-11-16 04:50] LABS: BUN - BLOOD UREA NITROGEN 34.0 mg/dL (6-20); CARBON DIOXIDE - CO2 25.0 mmol/L (21-32); CREATININE 1.2 mg/dL (0.6-1.3); GFR - MDRD 57.0 (>89)
[2024-11-16] MEDS: SODIUM CHLORIDE FLUSH 0.9% 10 ML SYRINGE IVP PRN (06:17)
--- NOTE | 2024-11-16 07:18 | PROVIDER PROGRESS NOTE ---
Subjective Prog Note Date Prog Note Date: 11/16/24 Prog Note Time: 07:17 Subjective Subjective: Patient had an uneventful night. He is breathing comfortably this morning, though on a high level of oxygen. Apparently ambulated and required increase of his O2 up to 11 L. Still on cannula Saw him with his later in the day. He has been getting IV Lasix during the day, and having good urine output. His blood pressures remained stable. His oxygen requirement has come down with this. He is able to be on a regular nasal cannula. Needing 5 to 7 L/min still. Denies any fevers or chills. Denies cough. Denies abdominal pain, nausea or vomiting. Had a very sandra conversation with the patient and his , and they are both in agreement that hospice is likely the most appropriate choice for Solomon. They are interested in discharging on hospice. Consult has been placed. Current Medications Current Medications Current Medications: Current Medications Generic Name Dose Route Start Last Admin Trade Name Freq PRN Reason Stop Dose Admin Acetaminophen 650 mg 11/14/24 20:59 Acetaminophen 650 Mg Supp VT Q6HR PRN Pain or Fever > 38C (100.4F) Albuterol/Ipratropium 3 ml 11/14/24 20:59 Ipratropium/Albuterol 3 Ml Neb INH Q4HR PRN Wheezing Alprazolam 0.25 mg 11/15/24 12:52 Alprazolam 0.25 Mg Tablet PO Q12H PRN Anxiety Budesonide 0.5 mg 11/15/24 19:00 Budesonide 0.5 Mg/2 Ml Neb INH RTBID REN Cholestyramine/Sucrose 4 gm 11/16/24 09:00 Cholestyramine 4 Gm Packet PO DAILY REN Formoterol Fumarate 20 mcg 11/15/24 19:00 Formoterol Fumarate Neb 20 Mcg/2 Ml INH RTBID REN Furosemide 20 mg 11/16/24 08:00 Furosemide 20 Mg/2 Ml Vial IVP BIDDIURETIC REN Ipratropium [place] 0.5 mg 11/15/24 19:00 Ipratropium 0.2 Mg/Ml Neb INH RTQ6H REN Methylprednisolone 40 mg 11/14/24 22:00 11/16/24 06:16 Methylprednisolone Succinate 40 Mg/Ml Vial IVP 40 mg TID REN Administration Metoprolol Tartrate 50 mg 11/15/24 09:00 11/15/24 08:05 Metoprolol Tartrate 50 Mg Tablet PO 50 mg DAILY REN Administration Ondansetron HCl 4 mg 11/14/24 20:59 Ondansetron Odt 4 Mg Tablet TL Q4HR PRN Nausea / Vomiting Sodium Chloride 10 ml 11/14/24 20:59 11/16/24 06:17 Sodium Chloride Flush 0.9% 10 Ml Syringe IVP 10 ml PRN PRN Administration NEEDED PER PROVIDER ORDERS Sodium Chloride 10 ml 11/15/24 01:00 11/15/24 21:54 Sodium Chloride Flush 0.9% 10 Ml Syringe IVP 10 ml 0100,0900,1700 REN Administration Objective Vital Signs/Intake & Output Vital Signs: Vital Signs x48h Temp Pulse Resp BP BP Pulse Ox O2 Flow Rate 11/16/24 07:00 74 23 109/64 98 8 11/16/24 06:00 64 24 117/70 96 8 11/16/24 05:00 36.5 C 59 L 15 109/69 98 8 11/16/24 04:00 58 L 12 91/65 98 8 11/16/24 03:00 66 21 106/69 96 8 11/16/24 02:00 65 18 103/70 98 8 11/16/24 01:00 78 21 107/76 96 8 11/16/24 00:00 37.7 C 75 21 114/71 97 8 Intake & Output: Intake & Output 11/13/24 11/14/24 11/15/24 11/16/24 23:59 23:59 23:59 23:59 Intake Total 1580 / 1580 Output Total 0 / 0 1675 / 1675 0 / 0 Balance 0 / 0 -95 / -95 0 / 0 Weight (kg) 70.5 kg Objective Comments/Other: GEN: No acute distress HEENT: NC/AT, normal appearance of external ears and nose. Hearing baseline. Cardiac: Irregular rhythm, rate controlled. No murmurs appreciated. Pulm: Fine crackles diffusely throughout his lungs. No wheezing appreciated. No cough. Abdomen: Soft, nontender, nondistended. No rebound or guarding Extremities: Moves all 4 extremities equally. Normal tone. Neuro: Face symmetric, CN II through XII intact grossly. No focal deficits appreciated Psych: Mood euthymic with congruent affect. Good insight. Exceptional historian Lab Results 11/16/24 04:26 11/16/24 04:26 Other Labs: Lab Results x24hrs 11/16/24 Range/Units 04:26 WBC 16.2 H (4.8-10.8) x10^3/uL RBC 4.40 L (4.70-6.10) 10^6/uL Hgb 12.7 L (14.0-18.0) g/dL Hct 39.5 L (42.0-52.0) % MCV 89.8 (80.0-94.0) fL MCH 28.9 (27.0-31.0) pg MCHC 32.2 (32.0-36.0) g/dL RDW 15.7 H (12.0-15.0) % Plt Count 181 (130-450) 10^3/uL MPV 11.0 (7.4-11.4) fL Neut # (Auto) 14.6 H (1.5-6.6) 10^3/uL Lymph # (Auto) 0.7 L (1.5-3.5) 10^3/uL [place] # (Auto) 0.8 (0.0-1.0) 10^3/uL Eos # (Auto) 0.0 (0.0-0.7) 10^3/uL Baso # (Auto) 0.0 (0.0-0.1) 10^3/uL Absolute Nucleated RBC 0.00 x10^3/uL Nucleated RBC % 0.0 /100WBC PT 40.3 H (9.9-12.6) secs INR 3.7 H (0.8-1.2) Sodium 138 (135-145) mmol/L Potassium 4.2 (3.5-4.5) mmol/L Chloride 106 (101-111) mmol/L Carbon Dioxide 25 (21-32) mmol/L Anion Gap 7.0 (6-13) BUN 34 H (6-20) mg/dL Creatinine 1.2 (0.6-1.3) mg/dL Estimated GFR (MDRD) 57 L (>89) Glucose 178 H (74-104) mg/dL Calcium 8.6 (8.5-10.3) mg/dL Diagnostic Imaging Diagnostic Imaging Results: positive Final report reviewed and Read independently Diagnostic Imaging Comments: Extensive honeycombing on his chest CT. Consistent with diagnosis of pulmonary fibrosis. No focal consolidations. No effusions. Assessment/Plan Problem List (1) Cor pulmonale: (2) Acute and chronic respiratory failure: Impression: Improving though slowly.Has had some reduction in oxygen requirement with Lasix administration. Suspect his presentation is mostly related to his pulmonary fibrosis given his progressive presentation. Workup subacute causes of fibrosis flare are unfortunately unrevealing. Most of this is likely idiopathic. Negative viral panel. No focal consolidations. No clear environmental triggers. On echocardiogram here, he seemingly has significant cor pulmonale. RVSP estimated very high, pending formal echo read. No systolic dysfunction. - Wean oxygen as tolerated, goal sat 88 to 92% - Continue Solu-Medrol 40 mg 3 times daily for now, if he responds we will likely apply a slow taper - Transition to oral prednisone 60 mg daily tomorrow, will slowly taper down from there - Will not intubate, okay for noninvasive ventilation, see ACP note 11/15 - No clear indication for antibiotics at this time - IV Lasix 20 mg twice daily. Monitor creatinine a.m. Qualifiers: Respiratory failure complication: hypoxia Qualified Code(s): J96.21 - Acute and chronic respiratory failure with hypoxia (3) Pulmonary fibrosis: Impression: An unfortunate new diagnosis for this patient. 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 Typical findings on chest CT. Diagnosed in February 2024, has had progression of his disease since then. Just met with pulmonology in October. His simulation tech is Dr. Júnior Hill. I did review Dr. Hill note from his outpatient visit. That note specifically says that antifibrotic therapy would not be appropriate for this patient. - Treating for flare as above - Patient ultimately will transition to hospice at discharge, but hoping to optimize him so he can get home - Hospice referral has been placed - Reasonable to continue INTRAMURAL DIRECTOR inhaler - Patient would benefit from vaccination for COVID, influenza, RSV (4) Atrial fibrillation: Impression: Longstanding history of atrial fibrillation. Normally anticoagulated with warfarin. INR on admission 3.0, Linda on hospital day 1. Warfarin still held. He currently is rate controlled. - Continue Lopressor 50 mg twice daily, home med - Likely no longer needing to be on warfarin. Will add on INR to tomorrow's labs, but will discuss with patient discontinuing this with goals of care. Qualifiers: Atrial fibrillation type: longstanding persistent Qualified Code(s): I 48.11 - Longstanding persistent atrial fibrillation (5) Hypertension: Impression: Patient is typically on amlodipine for hypertension. Notably amlodipine and calcium channel blockers may provide a protective role in fibrosis, do not see any clear research that suggest that they are helpful in a flare. Will hold off on resuming this at this point in time. - Hold amlodipine 2.5 mg twice daily - Metoprolol as above Qualifiers: Hypertension type: primary hypertension Qualified Code(s): I10 - Essential (primary) hypertension (6) Anxiety: Impression: Patient on alprazolam 0.25 mg twice daily every 12 hours as needed in the community. Reasonable to resume here to avoid any withdrawal symptoms. (7) Dysphagia: Impression: Patient describes a globus sensation that he has been having for months and is being worked up in the community. Interestingly has been associated with a scant hemoptysis. Not sure if this is an eosinophilic esophagitis or other atopic reaction. Happens with certain foods but not all foods. He is not bothered by this for now. He has tolerated his diet so far. Had planned for ENT follow-up on 11/18, this appointment has been pending for some time. - Noted, of unclear significance - Patient likely to cancel his ENT follow-up 11/18 given now goals of care. Qualifiers: Dysphagia type: esophageal phase Qualified Code(s): R13.19 - Other dysphagia
[2024-11-16] MEDS: FUROSEMIDE 20 MG/2 ML VIAL IVP SCH (08:04)
[2024-11-16] MEDS: CHOLESTYRAMINE 4 GM PACKET PO SCH (08:05)
[2024-11-16] MEDS: BUDESONIDE 0.5 MG/2 ML NEB INH SCH (08:21)
[2024-11-16] MEDS: FORMOTEROL FUMARATE NEB 20 MCG/2 ML INH SCH (08:21)
[2024-11-16] MEDS: IPRATROPIUM 0.2 MG/ML NEB INH SCH (08:21)
--- NOTE | 2024-11-16 09:44 | XRAY Report ---
PROCEDURE: XR Chest 1V INDICATIONS: hypoxia TECHNIQUE: One view of the chest was acquired. COMPARISON: 12/12/2014 FINDINGS: Surgical changes and devices: None. Lungs and pleura: Diffuse interstitial prominence. Vascular congestion and loss of vascular distinctness. Bilateral pleural effusions. No pneumothorax. Mediastinum: Mediastinal contours appear normal. Heart size is borderline enlarged. Bones and chest wall: No suspicious bony lesions. Overlying soft tissues appear unremarkable. IMPRESSION: Borderline cardiomegaly with findings suggestive of pulmonary edema/CHF. Concurrent infectious or inflammatory process not excluded clinically appropriate. Reviewed by: Sarmad Villavicencio MD on 11/16/2024 9:41 AM PDT Approved by: Sarmad Villavicencio MD on 11/16/2024 9:41 AM PDT Station ID: [id number]
[2024-11-17 04:56] LABS: BUN - BLOOD UREA NITROGEN 37.0 mg/dL (6-20); CARBON DIOXIDE - CO2 28.0 mmol/L (21-32); CREATININE 1.3 mg/dL (0.6-1.3); GFR - MDRD 52.0 (>89)
--- NOTE | 2024-11-17 08:07 | PROVIDER PROGRESS NOTE ---
Subjective Prog Note Date Prog Note Date: 11/17/24 Prog Note Time: 08:06 Subjective Subjective: Patient improving. Responsive to diuretics. He may be on 3 L of oxygen this morning. Has been able to wean down throughout the day yesterday. Creatinine unchanged. No sign of alkalosis. Current Medications Current Medications Current Medications: Current Medications Generic Name Dose Route Start Last Admin Trade Name Freq PRN Reason Stop Dose Admin Acetaminophen 650 mg 11/14/24 20:59 Acetaminophen 650 Mg Supp [place] Q6HR PRN Pain or Fever > 38C (100.4F) Albuterol/Ipratropium 3 ml 11/14/24 20:59 Ipratropium/Albuterol 3 Ml Neb INH Q4HR PRN Wheezing Alprazolam 0.25 mg 11/15/24 12:52 Alprazolam 0.25 Mg Tablet PO Q12H PRN Anxiety Budesonide 0.5 mg 11/15/24 19:00 11/17/24 07:09 Budesonide 0.5 Mg/2 Ml Neb INH 0.5 mg RTBID REN Administration Cholestyramine/Sucrose 4 gm 11/16/24 09:00 11/16/24 08:05 Cholestyramine 4 Gm Packet PO 4 gm DAILY REN Administration Formoterol Fumarate 20 mcg 11/15/24 19:00 11/17/24 07:09 Formoterol Fumarate Neb 20 Mcg/2 Ml INH 20 mcg RTBID REN Administration Furosemide 20 mg 11/16/24 08:00 11/17/24 06:45 Furosemide 20 Mg/2 Ml Vial IVP 20 mg BIDDIURETIC REN Administration Ipratropium [place] 0.5 mg 11/15/24 19:00 11/17/24 07:09 Ipratropium 0.2 Mg/Ml Neb INH 0.5 mg RTQ6H REN Administration Metoprolol Tartrate 50 mg 11/15/24 09:00 11/16/24 08:04 Metoprolol Tartrate 50 Mg Tablet PO 50 mg DAILY REN Administration Ondansetron HCl 4 mg 11/14/24 20:59 Ondansetron Odt 4 Mg Tablet TL Q4HR PRN Nausea / Vomiting Prednisone 60 mg 11/17/24 08:00 Prednisone 20 Mg Tablet PO DAILYWM REN Sodium Chloride 10 ml 11/14/24 20:59 11/16/24 06:17 Sodium Chloride Flush 0.9% 10 Ml Syringe IVP 10 ml PRN PRN Administration NEEDED PER PROVIDER ORDERS Sodium Chloride 10 ml 11/15/24 01:00 11/17/24 04:23 Sodium Chloride Flush 0.9% 10 Ml Syringe IVP Not Given 0100,0900,1700 RNE Objective Vital Signs/Intake & Output Vital Signs: Vital Signs x48h Temp Pulse Pulse Resp BP Pulse Ox O2 Flow Rate 11/17/24 07:11 3 11/17/24 07:11 62 24 3 11/17/24 07:06 119/72 11/17/24 04:00 36.7 C 62 22 102/68 98 6 11/17/24 01:21 64 16 6 11/17/24 01:00 36.7 C Intake & Output: Intake & Output 11/14/24 11/15/24 11/16/24 11/17/24 23:59 23:59 23:59 23:59 Intake Total 1580 / 1580 1510 / 1510 150 / 150 Output Total 0 / 0 1675 / 1675 2675 / 2675 600 / 600 Balance 0 / 0 -95 / -95 -1165 / -1165 -450 / -450 Weight (kg) 70.5 kg Lab Results 11/16/24 04:26 11/17/24 04:28 Other Labs: Lab Results x24hrs 11/17/24 Range/Units 04:28 Sodium 138 (135-145) mmol/L Potassium 3.8 (3.5-4.5) mmol/L Chloride 104 (101-111) mmol/L Carbon Dioxide 28 (21-32) mmol/L Anion Gap 6.0 (6-13) BUN 37 H (6-20) mg/dL Creatinine 1.3 (0.6-1.3) mg/dL Estimated GFR (MDRD) 52 L (>89) Glucose 132 H (74-104) mg/dL Calcium 8.5 (8.5-10.3) mg/dL Assessment/Plan Problem List (1) Cor pulmonale: (2) Acute and chronic respiratory failure: Qualifiers: Respiratory failure complication: hypoxia Qualified Code(s): J96.21 - Acute and chronic respiratory failure with hypoxia (3) Pulmonary fibrosis: (4) Atrial fibrillation: Qualifiers: Atrial fibrillation type: longstanding persistent Qualified Code(s): I 48.11 - Longstanding persistent atrial fibrillation (5) Hypertension: Qualifiers: Hypertension type: primary hypertension Qualified Code(s): I10 - Essential (primary) hypertension (6) Anxiety: (7) Dysphagia: Qualifiers: Dysphagia type: esophageal phase Qualified Code(s): R13.19 - Other dysphagia
[2024-11-17 09:20] VITALS: TEMP 98.2
--- NOTE | 2024-11-17 09:31 | Discharge Summary ---
"Discharge Summary Admit Date: 11/15/24 Discharge Date: 11/17/24 Discharging Provider: Johan Walker DO Primary Care Provider: Ricki Nassar Code Status: Do Not Attempt Resuscitation Discharge Facility Name: Home DIAGNOSES Discharge Diagnoses with Status of Each Condition: Acute on chronic hypoxemic respiratory failure, improved Pulmonary fibrosis, ongoing, chronic, progressive Atrial fibrillation, rate controlled, stable, chronic HPI History of Present Illness: 84-year-old male who is oxygen dependent on 3 L at home presents to the emergency department with a 4 to 5-day history of increasing shortness of breath and increasing oxygen requirements at home. It was reported by EMS that when they arrived at his home he was satting 66% on 5 L of oxygen via nasal cannula. His diagnosis of pulmonary fibrosis is quite recent. He saw pulmonology, Dr. Hill just within the last 2 weeks for the first time. Since he has been in the emergency department he has received bronchodilators and steroids. He is somewhat improved, more comfortable and less dyspneic on a nonrebreather mask but still with tachypnea and dropping oxygen saturations with any activity at all. Even moving about in bed causes him to desaturate. He has not had any recent URI, nor has anyone at home been sick. has not had fever or chills. Brief goals of care discussion held in the ED. This patient does not want to be permanently on machines to live, but wants attempts at resuscitation. has never heard of a POLST, and thinks that he wants to be full code. he does not understand any prognosis for his pulmonary fibrosis. His is his surrogate medical decision maker. CONSULTS | PROCEDURES Consultations: None Procedures: CXR 11/14, 11/[address] 11/14 HOSPITAL COURSE Hospital Course: Extremely pleasant 84-year-old gentleman who presented after progressive dyspnea at home. Reportedly found to be in the 60s on pulse oximetry on his home 5 L of oxygen. All in all consistent with IPF flare. He has a recent diagnosis of pulmonary fibrosis as of yet defined. He was supposed to have further workup before following up with pulmonology, however he is mobility and oxygen requirement has limited his ability to complete that follow-up work. Here he was found on chest CT to have evidence of chronic idiopathic pulmonary fibrosis with no superimposed acute process. Specifically his viral panel was negative. He had no consolidations on his chest CT. He had no white count or cough to suggest a infectious process. He was started on high-dose steroids, and began to improve. A echocardiogram was performed which revealed elevated right-sided pressures. This TTE is still pending a formal read. He was started on high-dose steroids here as well as diuretics. His oxygen improved somewhat after the steroids, began to improve greatly after several doses of IV furosemide. He had good urine output and his kidney function remained stable. It was clear after our first conversation that the patient had a good understanding of the progressive nature of his disease. I brought up the notion of hospice, and the patient was very receptive to that. He wants to at home. He does not want to come in & out of the hospital. He has had a rough journey since he was diagnosed with pulmonary fibrosis in February of this year, and has noted how progressively debilitated he has become. Patient was amenable to enrolling in hospice. On the day of discharge, he wanted to go home and watch football. His oxygen requirement is such that I think he can maintain on his oxygen he has at home. I have continued him on high-dose steroids as well as oral diuretics. I have referred him to hospice, and have notified them that he is leaving the hospital today. I counseled him on palliative management of dyspnea in the community, he seemed receptive and I sent some literature in his discharge packet. A comfort care POLST was completed prior to discharge and sent with the patient. ALLERGIES Allergies Allergy/AdvReac Type Severity Reaction Status Date / Time celecoxib (From Celebrex) Allergy Intermediate Nausea Verified 11/14/24 18:25 latex Allergy Intermediate Rash Verified 11/14/24 18:25 tramadol HCl * (From Ultram) Allergy Intermediate Nausea Verified 11/14/24 18:25 NSAIDS (Non-Steroidal Allergy Unknown Unknown Verified 11/14/24 18:25 Anti-Inflamma adhesive Allergy Rash Verified 11/14/24 18:25 MEDICATIONS Ambulatory Orders Medication Instructions Recorded Confirmed alprazolam 0.25 mg tablet 0.25 mg PO BID Anxiety 05/2011/15/24 amlodipine 2.5 mg tablet (Norvasc) 2.5 mg PO BID 05/2011/15/24 omeprazole 20 mg capsule,delayed 20 mg PO BID 05/20/14 11/15/24 release budesonide 160 mcg-glycopyr 9 2 inh inhalation DAILY 1 11/15/24 mcg-formot 4.8 mcg/actuation HFA inhaler (Breztri Aerosphere) cholestyramine 4 gram oral powder 4 g PO DAILY 5 11/15/24 for suspension in a packet (Cholestyramine Light) metoprolol tartrate 50 mg tablet 50 mg PO BID 11/15/24 11/15/24 furosemide 40 mg tablet 40 mg PO DAILY #30 tabs 07/07 prednisone 20 mg tablet See Rx Instructions .Route 1 .COMPLEX #50 tabs PHYSICAL EXAM AT DISCHARGE Vital Signs: Vital Signs x48h Temp Pulse Resp BP Pulse Ox O2 Flow Rate 11/17/24 11:14 36.8 C 70 27 H 115/70 94 5 LABS 11/16/24 04:26 11/17/24 04:28 FOLLOW UP Follow Up: Hospice intake, ideally in the coming days. TIME SPENT Time Spent in Discharge (Minutes): 52 Discharge Plan Discharge Patient Disposition: 50 Hospice/Home DC/Xfer Condition: Stable Medically Cleared Date:: 11/17/24 Prescriptions: New furosemide 40 mg Tablet 40 mg PO DAILY Qty: 30 0RF prednisone 20 mg tablet See Rx Instructions .ROUTE .COMPLEX Qty: 50 0RF Rx Instructions: Take 3 tablets daily for 1 week then 2 tablets daily for 1 week then 1 tablet daily until you follow-up with a provider. If your symptoms return, go back to the last dose where you felt more comfortable. Continued amlodipine [Norvasc] 2.5 MG tablet 2.5 mg PO BID alprazolam 0.25 MG tablet 0.25 mg PO BID Patient Comments: 1/2 tab every 6 hrs if needed omeprazole 20 MG capsule,delayed release(DR/EC) 20 mg PO BID Breztri Aerosphere 160-9-4.8 mcg/actuation HFA aerosol inhaler 2 inh INHALATION DAILY Cholestyramine Light 4 gram powder in packet 4 g PO DAILY metoprolol tartrate 50 mg tablet 50 mg PO BID Discontinued warfarin [Jantoven] 5 MG tablet 5 mg PO DAILY cholecalciferol (vitamin D3) 25 mcg (1,000 unit) tablet 2,000 unit PO DAILY Activity Restrictions: No Restrictions Diet: Regular Health Concerns: You were admitted to the hospital with worsened oxygen levels. You were requiring more oxygen when you initially arrived. We have been treating with steroids and water pills, and your oxygen requirement has come down. We discussed going home with hospice. We discussed trying to get home on oxygen levels he can do with your current set up at home, and then hospice will follow- up with you in coming days. I called hospice on the day of discharge, and they will be reaching out to you within the next 1 to 2 days. In the meantime, I want to continue on steroids and the water pill to help maintain your comfort at home. We talked about other approaches to helping you feel less short of breath at home including having a fan blow in your face. Hospice can help with additional comfort focused approaches. It was an honor and a pleasure to get the opportunity to care for you this hospitalization. If you need any further support that hospice can't provide, please do return to the hospital. Print Language: Albanian Patient Instructions: Hospice Care Dyspnea, Shortness of Breath Coping Stand Alone Forms: PCP List Follow-up Care: Ricki Nassar MD [Primary Care Provider, Banking Supervisor] Vitals documented within 30 minutes of discharge?: Yes"
[2024-11-17 11:15] VITALS: BP 115/70; O2SAT 94
--- NOTE | 2024-11-17 22:23 | ECHO Report ---
Version: 1 Study ID: [id number] [id number] Adult Echocardiogram Report Name: ZAK HUSSEIN Study Date: 11/15/2024, 12: 13 PM BP: 112 / 70 mmHg Patient Location: ICU^2302^01 HR: 83 bpm : 1940 (MM/DD/YYYY) Gender: Male Height: 67 in Age: 84 Years Weight: 150 lb BSA: 1.79 m² Reason For Study: pulm HTN? Interpretation Summary The visual left ventricular ejection fraction is estimated at 50 to 55%. The right ventricle is severely dilated. Moderate to severe tricuspid regurgitation present. The pulmonary artery systolic pressure is severely increased. The right ventricular systolic pressure is 72mmHg Left Ventricle: The left ventricle is normal in size. No thrombus seen in the left ventricle. The visual left ventricular ejection fraction is estimated at 50 to 55%. The overall diastolic pattern is one of restrictive filling with reduction of left ventricular compliance and marked elevation of left ventricular filling pressures. Right Ventricle: The right ventricle is severely dilated. TAPSE is consistent with normal right ventricular function. The tricuspid annular plane systolic excursion (TAPSE) measurement is 2.5 cm. Aortic Valve: The aortic valve is mildly calcified. The aortic valve is trileaflet. No hemodynamically significant valvular aortic stenosis. Mild aortic regurgitation is present. Mitral Valve: The mitral valve leaflets are structurally normal with normal motion. No evidence of mitral stenosis is seen. There is mild mitral regurgitation. Tricuspid Valve: The tricuspid valve is structurally normal. There is no tricuspid stenosis. Moderate to severe tricuspid regurgitation present. Pulmonic Valve: The pulmonic valve is normal in structure and function. There is no pulmonic valvular stenosis. Mild pulmonic valvular regurgitation is present. Left Atrium: The left atrial size is normal. Right Atrium: Right atrial size is normal. Atrial Septum: The interatrial septum appears normal, without evidence of shunt by 2D imaging and color Doppler. Aorta: The ascending aorta is normal in size. The transverse arch is normal in size. The aorta at the level of the sinuses of Valsalva is mildly dilated. The aorta at the sinus of Valsalva measures 4.0cm. Pulmonary Artery: The pulmonary artery is not well visualized, but is probably normal size. The pulmonary artery systolic pressure is severely increased. Inferior vena cava dynamics indicate moderately elevated right atrial pressures. The right ventricular systolic pressure is 72mmHg. Pericardium/Pleural Space: There is no pericardial effusion. Left Ventricle IVSd: 0.70 cm LVIDd: 4.6 cm LVPWd: 0.78 cm LVIDs: 3.6 cm ESV(sp4-el): 31.7 ml Right Ventricle TAPSE: 2.45 cm RV S Tirso: 9.7 cm/sec Atria LA dimension: 5.4 cm LAV(MOD-sp4): 38.3 ml LAV(MOD-sp2): 36.3 ml Diastolic Function MV dec time: 0.32 sec MV E max tirso: 54.8 cm/sec MV A max tirso: 75.1 cm/sec Aortic Valve LVOT diam: 2.14 cm LV V1 mean P.95 mmHg LV V1 mean: 44.4 cm/sec LV V1 VTI: 13.7 cm Ao V2 VTI: 17.9 cm Ao mean P.09 mmHg Ao V2 mean: 67.2 cm/sec LV V1 max: 68.7 cm/sec LV V1 max P.89 mmHg Ao max P.8 mmHg Ao V2 max: 97.4 cm/sec Mitral Valve MV max P.6 mmHg MV V2 max: 80.8 cm/sec MV mean P.22 mmHg MV V2 mean: 52.3 cm/sec MV V2 VTI: 19.5 cm Tricuspid Valve TR max P.1 mmHg TR max tirso: 400.4 cm/sec TV max P.1 mmHg Aorta Ao root diam: 4.0 cm MMode/2D Measurements & Calculations Ao root diam: 4.0 cm BMI: 23.5 kilograms/m² BSA([facility]): 1.80 m² ESV(sp4-el): 31.7 ml IVSd: 0.70 cm LA A4C-A/L: 13.5 cm² LA dimension: 5.4 cm LA ESV-A/L: 28.6 ml LA Vol Index: 27.4 ml/m² LAV(MOD-sp2): 36.3 ml LAV(MOD-sp4): 38.3 ml LVIDd: 4.6 cm LVIDs: 3.6 cm LVOT diam: 2.14 cm LVPWd: 0.78 cm RA A4Cs: 19.8 cm² TAPSE: 2.45 cm Doppler Measurements & Calculations Ao max P.8 mmHg Ao mean P.09 mmHg Ao V2 max: 97.4 cm/sec Ao V2 mean: 67.2 cm/sec Ao V2 VTI: 17.9 cm Lat E/e': 7.4 LV V1 max: 68.7 cm/sec LV V1 max P.89 mmHg LV V1 mean: 44.4 cm/sec LV V1 mean P.95 mmHg LV V1 VTI: 13.7 cm Med E/e': 9.7 MV A max tirso: 75.1 cm/sec MV dec time: 0.32 sec MV DVI-pr: 0.73 MV E max tirso: 54.8 cm/sec MV max P.6 mmHg MV mean P.22 mmHg MV V2 max: 80.8 cm/sec MV V2 mean: 52.3 cm/sec MV V2 VTI: 19.5 cm PA max P.89 mmHg PA V2 max: 68.8 cm/sec RV S Tirso: 9.7 cm/sec TR max P.1 mmHg TR max tirso: 400.4 cm/sec TV max P.1 mmHg Other Measurements & Calculations Ao root area: 12.3 cm² JR(I,D): 2.7 cm² JR(V,D): 2.5 cm² EDV(Teich): 95.4 ml EF(sp-el): 50.0 % EF(Teich): 41.8 % ESV(Teich): 55.5 ml FS: 20.4 % LVOT area: 3.6 cm² MV E/A: 0.73 MVA(VTI): 2.5 cm² SV(LVOT): 49.1 ml MD Jocelyn Negrete 11/17/2024, 10: 23 PM Ordering Physician: Nicolette Canales Referring Physician: Michele Alcantara Performed By: [facility]
[2024-11-18] MEDS ORDERED: FUROSEMIDE 40 MG TABLET PO SCH (09:00)
--- OUTSIDE RECORDS SUMMARY | 2024-11-19 18:03 | EXTERNAL MEDICAL SUMMARY RPT | Continuity of Care Document ---
Author Organization [place] Address [address] [address] Phone Care Team Providers Care Home Planning Consultant Salesperson Name Role Phone Unavailable Unavailable [email or web address] Ricki Nassar Unavailable Unavailable Allergies and Intolerances date description facility reaction severity 2024-09-27 10:35:58 [facility] (no reactio n) Severe 2024-10-23 11:12:30 [facility] (no reactio n) Severe Medications date description facility 2024-09-27 00:00 Fluticasone Propion-Salmeterol [facility] 2024-09-29 00:00 Doxycycline Hyclate [facility] 2024-09-27 00:00 Cholestyramine [facility] 2024-09-27 00:00 Cephalexin [facility] 2024-09-27 00:00 Omeprazole [facility] 2024-10-23 00:00 Albuterol Sulfate [facility] 2024-09-27 00:00 Ilgtpcoiyx-Evrqdehf-Rrxubqlzkd [facility] 2024-09-27 00:00 Alprazolam [facility] 2024-09-27 00:00 Amlodipine [facility] 2024-09-29 00:00 Prednisone [facility] 2024-10-23 00:00 Cholecalciferol (Vitamin D3) Is [facility] 2024-09-27 00:00 Warfarin [facility] 2024-09-27 00:00 Metoprolol Tartrate [facility] Problems date description facility 2024-09-10 12:11 Hemoptysis [facility] 2024-09-10 16:35 Hemoptysis [facility] 2024-09-23 15:20 Other emphysema [facility] 2024-09-23 15:20 Hemoptysis [facility] 2024-09-27 00:00 Acute on chronic congestive hea rt failure [facility] 2024-09-27 00:00 Fibrosis of lung [facility] 2024-09-27 00:00 Acute respiratory failure with hypoxia [facility] 2024-11-14 20:45 Acute and chronic re spiratory failure, unspecified whether with hypoxia or [facility]capnia [facility] 2024-11-14 22:00 Acute and chronic re spiratory failure, unspecified whether with hypoxia or hypercapnia [facility] 2024-11-14 22:02 Acute and chronic re spiratory failure, unspecified whether with hypoxia or hypercapnia [facility] 2024-11-15 06:57 Unspecified atrial fibrillation [facility] 2024-11-15 06:57 Pulmonary fibrosis, unspecified [facility] 2024-11-15 06:57 Acute and chronic re spiratory failure, unspecified whether with hypoxia or hypercapnia [facility] 2024-11-15 08:58 Unspecified atrial fibrillation [facility] 2024-11-15 08:58 [facility]monary [facility], [facility] 2024-11-15 08:58 Acute and chronic re spiratory failure, unspecified whether with hypoxia or [facility]capnia [facility] 2024-11-17 09:19 Anxiety disorder, unspecified [facility] 2024-11-17 09:19 Essential (primary) hypertensio n [facility] 2024-11-17 09:19 Cor [facility]ale [facility]chronic[facility] 2024-11-17 09:19 Longstanding persistent atrial fibrillation [email or web address] 2024-11-17 09:19 Unspecified [facility] 2024-11-17 09:19 Pulmonary fibrosis, [facility] 2024-11-17 09:19 Acute and chronic re spiratory failure, unspecified whether with hypoxia or hypercapnia [facility] 2024-11-17 09:19 Acute and chronic respiratory f ailure with hypoxia [facility] 2024-11-17 09:19 [facility] 09:30 Anxiety disorder, unspecified [employer] [facility] 2024-11-17 09:30 Essential (primary) hypertensio n [email or web address] 2024-11-17 09:30 Cor pulmonale (chronic) [email or web address] [employer] [facility] 2024-11-17 09:30 Longstanding persistent atrial fibrillation [email or web address] 2024-11-17 09:30 Unspecified atrial fibrillation [facility] 2024-11-17 09:30 Pulmonary fibrosis, unspecified [facility] 2024-11-17 09:30 Acute and chronic re spiratory failure, unspecified whether with hypoxia or hypercapnia [facility] 2024-11-17 09:30 Acute and chronic respiratory f ailure with hypoxia [facility] 2024-11-17 09:30 Other dysphagia [facility] 2024-11-17 11:30 Anxiety disorder, unspecified [facility] 2024-11-17 11:30 Essential (primary) hypertensio n [facility] 2024-11-17 11:30 Cor pulmonale (chronic) [facility] 2024-11-17 11:30 Longstanding persistent atrial fibrillation [facility] 2024-11-17 11:30 Unspecified atrial fibrillation [facility] 2024-11-17 11:30 Pulmonary fibrosis, unspecified [facility] 2024-11-17 11:30 Acute and chronic re spiratory failure, unspecified whether with hypoxia or hypercapnia [facility] 2024-11-17 11:30 Acute and chronic respiratory f ailure with hypoxia [facility] 2024-11-17 11:30 Other dysphagia [facility] 2024-11-18 09:29 Anxiety disorder, unspecified [facility] 2024-11-18 09:29 Essential (primary) hypertensio n [facility] 2024-11-18 09:29 Cor pulmonale (chronic) [facility] 2024-11-18 09:29 Longstanding persistent atrial fibrillation [facility] 2024-11-18 09:29 Unspecified atrial fibrillation [facility] 2024-11-18 09:29 Pulmonary fibrosis, unspecified [facility] 2024-11-18 09:29 Acute and chronic re spiratory failure, unspecified whether with hypoxia or hypercapnia [facility] 2024-11-18 09:29 Acute and chronic respiratory f ailure with hypoxia [facility] 2024-11-18 09:29 Dyspnea, unspecified [facility] 2024-11-18 09:29 Other dysphagia [facility] 2024-11-18 09:29 Weakness [facility] Procedures date description facility 2024-09-27 00:00 Blood culture [facility] 2024-09-23 00:00 CT chest without contrast [facility] 2024-09-27 00:00 X-ray of chest, single [facility] 2024-09-10 00:00 X-ray of chest, two views [facility] 2024-09-27 00:00 Complete Doppler echocardiograp hy [facility] Results/Labs test date facility value unit notes Result panel 1 Specimen collection (procedure) (no date) [facility] (missing) (missing) (missing) Result panel 2 Specimen collection (procedure) (no date) [facility] (missing) (missing) (missing) Result panel 3 Specimen collection (procedure) (no date) [facility] (missing) (missing) (missing) Result panel 4 Specimen collection (procedure) (no date) [facility] (missing) (missing) (missing) Result panel 5 Specimen collection (procedure) (no date) [facility] (missing) (missing) (missing) Result panel 6 Specimen collection (procedure) (no date) [facility] (missing) (missing) (missing) Result panel 7 Specimen collection (procedure) (no date) [facility] (missing) (missing) (missing) Result panel 8 Specimen collection (procedure) (no date) [facility] (missing) (missing) (missing) Result panel 9 Specimen collection (procedure) (no date) [facility] (missing) (missing) (missing) Result panel 10 Specimen collection (procedure) (no date) [facility] (missing) (missing) (missing) Result panel 11 Specimen collection (procedure) (no date) [facility] (missing) (missing) (missing) Result panel 12 Specimen collection (procedure) (no date) [facility] (missing) (missing) (missing) Result panel 13 Specimen collection (procedure) (no date) [facility] (missing) (missing) (missing) Result panel 14 Specimen collection (procedure) (no date) [facility] (missing) (missing) (missing) Result panel 15 Specimen collection (procedure) (no date) [facility] (missing) (missing) (missing) Result panel 16 Specimen collection (procedure) (no date) [facility] (missing) (missing) (missing) Result panel 17 Specimen collection (procedure) (no date) [facility] (missing) (missing) (missing) Result panel 18 Specimen collection (procedure) (no date) [facility] (missing) (missing) (missing) Result panel 19 Specimen collection (procedure) (no date) [facility] (missing) (missing) (missing) Result panel 20 Specimen collection (procedure) (no date) [facility] (missing) (missing) (missing) Result panel 21 Specimen collection (procedure) (no date) [facility] (missing) (missing) (missing) Result panel 22 Specimen collection (procedure) (no date) [facility] (missing) (missing) (missing) Result panel 23 Specimen collection (procedure) (no date) [facility] (missing) (missing) (missing) Result panel 24 Specimen collection (procedure) (no date) [facility] (missing) (missing) (missing) Result panel 25 Specimen collection (procedure) (no date) [facility] (missing) (missing) (missing) Result panel 26 Specimen collection (procedure) (no date) [facility] (missing) (missing) (missing) Result panel 27 Specimen collection (procedure) (no date) [facility] (missing) (missing) (missing) Result panel 28 Specimen collection (procedure) (no date) [facility] (missing) (missing) (missing) Result panel 29 Specimen collection (procedure) (no date) [facility] (missing) (missing) (missing) Result panel 30 Specimen collection (procedure) (no date) [facility] (missing) (missing) (missing) Result panel 31 Specimen collection (procedure) (no date) [facility] (missing) (missing) (missing) Result panel 32 Specimen collection (procedure) (no date) [facility] (missing) (missing) (missing) Result panel 33 Specimen collection (procedure) (no date) [facility] (missing) (missing) (missing) Result panel 34 Specimen collection (procedure) (no date) [facility] (missing) (missing) (missing) Result panel 35 Specimen collection (procedure) (no date) [facility] (missing) (missing) (missing) Result panel 36 Specimen collection (procedure) (no date) [facility] (missing) (missing) (missing) Result panel 37 Specimen collection (procedure) (no date) [facility] (missing) (missing) (missing) Result panel 38 Specimen collection (procedure) (no date) [facility] (missing) (missing) (missing) Result panel 39 Specimen collection (procedure) (no date) [facility] (missing) (missing) (missing) Result panel 40 Specimen collection (procedure) (no date) [facility] (missing) (missing) (missing) Result panel 41 Specimen collection (procedure) (no date) [facility] (missing) (missing) (missing) Result panel 42 Specimen collection (procedure) (no date) [facility] (missing) (missing) (missing) Result panel 43 Specimen collection (procedure) (no date) [facility] (missing) (missing) (missing) Result panel 44 Specimen collection (procedure) (no date) [facility] (missing) (missing) (missing) Result panel 45 Specimen collection (procedure) (no date) [facility] (missing) (missing) (missing) Result panel 46 Specimen collection (procedure) (no date) [facility] (missing) (missing) (missing) Result panel 47 Specimen collection (procedure) (no date) [facility] (missing) (missing) (missing) Result panel 48 Specimen collection (procedure) (no date) [facility] (missing) (missing) (missing) Result panel 49 Specimen collection (procedure) (no date) [facility] (missing) (missing) (missing) Result panel 50 Specimen collection (procedure) (no date) [facility] (missing) (missing) (missing) Result panel 51 Specimen collection (procedure) (no date) [facility] (missing) (missing) (missing) Result panel 52 Specimen collection (procedure) (no date) [facility] (missing) (missing) (missing) Result panel 53 Specimen collection (procedure) (no date) [facility] (missing) (missing) (missing) Result panel 54 Specimen collection (procedure) (no date) [facility] (missing) (missing) (missing) Result panel 55 Specimen collection (procedure) (no date) [facility] (missing) (missing) (missing) Result panel 56 Specimen collection (procedure) (no date) [facility] (missing) (missing) (missing) Result panel 57 Specimen collection (procedure) (no date) [facility] (missing) (missing) (missing) Result panel 58 Specimen collection (procedure) (no date) [facility] (missing) (missing) (missing) Result panel 59 Specimen collection (procedure) (no date) [facility] (missing) (missing) (missing) Result panel 60 Specimen collection (procedure) (no date) [facility] (missing) (missing) (missing) Result panel 61 Specimen collection (procedure) (no date) [facility] (missing) (missing) (missing) Result panel 62 Specimen collection (procedure) (no date) [facility] (missing) (missing) (missing) Result panel 63 Specimen collection (procedure) (no date) [facility] (missing) (missing) (missing) Result panel 64 Specimen collection (procedure) (no date) [facility] (missing) (missing) (missing) Result panel 65 Specimen collection (procedure) (no date) [facility] (missing) (missing) (missing) Result panel 66 Specimen collection (procedure) (no date) [facility] (missing) (missing) (missing) Result panel 67 Specimen collection (procedure) (no date) [facility] (missing) (missing) (missing) Result panel 68 Specimen collection (procedure) (no date) [facility] (missing) (missing) (missing) Result panel 69 Specimen collection (procedure) (no date) [facility] (missing) (missing) (missing) Result panel 70 Specimen collection (procedure) (no date) [facility] (missing) (missing) (missing) Result panel 71 Specimen collection (procedure) (no date) [facility] (missing) (missing) (missing) Result panel 72 Specimen collection (procedure) (no date) [facility] (missing) (missing) (missing) Result panel 73 Specimen collection (procedure) (no date) [facility] (missing) (missing) (missing) Result panel 74 Specimen collection (procedure) (no date) [facility] (missing) (missing) (missing) Result panel 75 Specimen collection (procedure) (no date) [facility] (missing) (missing) (missing) Result panel 76 Specimen collection (procedure) (no date) [facility] (missing) (missing) (missing) Result panel 77 Specimen collection (procedure) (no date) [facility] (missing) (missing) (missing) Result panel 78 Specimen collection (procedure) (no date) [facility] (missing) (missing) (missing) Result panel 79 Specimen collection (procedure) (no date) [facility] (missing) (missing) (missing) Result panel 80 Specimen collection (procedure) (no date) [facility] (missing) (missing) (missing) Result panel 81 Specimen collection (procedure) (no date) [facility] (missing) (missing) (missing) Result panel 82 Specimen collection (procedure) (no date) [facility] (missing) (missing) (missing) Result panel 83 Specimen collection (procedure) (no date) [facility] (missing) (missing) (missing) Result panel 84 Specimen collection (procedure) (no date) [facility] (missing) (missing) (missing) Result panel 85 Specimen collection (procedure) (no date) [facility] (missing) (missing) (missing) Result panel 86 Specimen collection (procedure) (no date) [facility] (missing) (missing) (missing) Result panel 87 Specimen collection (procedure) (no date) [facility] (missing) (missing) (missing) Result panel 88 Specimen collection (procedure) (no date) [facility] (missing) (missing) (missing) Result panel 89 Specimen collection (procedure) (no date) [facility] (missing) (missing) (missing) Result panel 90 Specimen collection (procedure) (no date) [facility] (missing) (missing) (missing) Result panel 91 Specimen collection (procedure) (no date) [facility] (missing) (missing) (missing) Result panel 92 Specimen collection (procedure) (no date) [facility] (missing) (missing) (missing) Result panel 93 Specimen collection (procedure) (no date) [facility] (missing) (missing) (missing) Result panel 94 Specimen collection (procedure) (no date) [facility] (missing) (missing) (missing) Result panel 95 Specimen collection (procedure) (no date) [facility] (missing) (missing) (missing) Result panel 96 Specimen collection (procedure) (no date) [facility] (missing) (missing) (missing) Result panel 97 Specimen collection (procedure) (no date) [facility] (missing) (missing) (missing) Result panel 98 Specimen collection (procedure) (no date) [facility] (missing) (missing) (missing) Result panel 99 Specimen collection (procedure) (no date) [facility] (missing) (missing) (missing) Result panel 100 Specimen collection (procedure) (no date) [facility] (missing) (missing) (missing) Result panel 101 Specimen collection (procedure) (no date) [facility] (missing) (missing) (missing) Result panel 102 Specimen collection (procedure) (no date) [facility] (missing) (missing) (missing) Result panel 103 Specimen collection (procedure) (no date) [facility] (missing) (missing) (missing) Result panel 104 Specimen collection (procedure) (no date) [facility] (missing) (missing) (missing) Result panel 105 Specimen collection (procedure) (no date) [facility] (missing) (missing) (missing) Result panel 106 Specimen collection (procedure) (no date) [facility] (missing) (missing) (missing) Result panel 107 Specimen collection (procedure) (no date) [facility] (missing) (missing) (missing) Result panel 108 Specimen collection (procedure) (no date) [facility] (missing) (missing) (missing) Result panel 109 Specimen collection (procedure) (no date) [facility] (missing) (missing) (missing) Result panel 110 Specimen collection (procedure) (no date) [facility] (missing) (missing) (missing) Result panel 111 Specimen collection (procedure) (no date) [facility] (missing) (missing) (missing) Result panel 112 Specimen collection (procedure) (no date) [facility] (missing) (missing) (missing) Result panel 113 Specimen collection (procedure) (no date) [facility] (missing) (missing) (missing) Result panel 114 Specimen collection (procedure) (no date) [facility] (missing) (missing) (missing) Result panel 115 Specimen collection (procedure) (no date) [facility] (missing) (missing) (missing) Result panel 116 Specimen collection (procedure) (no date) [facility] (missing) (missing) (missing) Result panel 117 Specimen collection (procedure) (no date) [facility] (missing) (missing) (missing) Result panel 118 Specimen collection (procedure) (no date) [facility] (missing) (missing) (missing) Result panel 119 Specimen collection (procedure) (no date) [facility] (missing) (missing) (missing) Result panel 120 Specimen collection (procedure) (no date) [facility] (missing) (missing) (missing) Result panel 121 Specimen collection (procedure) (no date) [facility] (missing) (missing) (missing) Result panel 122 Specimen collection (procedure) (no date) [facility] (missing) (missing) (missing) Result panel 123 Specimen collection (procedure) (no date) [facility] (missing) (missing) (missing) Result panel 124 Specimen collection (procedure) (no date) [facility] (missing) (missing) (missing) Result panel 125 Specimen collection (procedure) (no date) [facility] (missing) (missing) (missing) Result panel 126 Specimen collection (procedure) (no date) [facility] (missing) (missing) (missing) Result panel 127 Specimen collection (procedure) (no date) [facility] (missing) (missing) (missing) Result panel 128 Specimen collection (procedure) (no date) [facility] (missing) (missing) (missing) Result panel 129 Specimen collection (procedure) (no date) [facility] (missing) (missing) (missing) Result panel 130 Specimen collection (procedure) (no date) [facility] (missing) (missing) (missing) Result panel 131 Specimen collection (procedure) (no date) [facility] (missing) (missing) (missing) Result panel 132 Specimen collection (procedure) (no date) [facility] (missing) (missing) (missing) Result panel 133 Specimen collection (procedure) (no date) [facility] (missing) (missing) (missing) Result panel 134 Specimen collection (procedure) (no date) [facility] (missing) (missing) (missing) Result panel 135 Specimen collection (procedure) (no date) [facility] (missing) (missing) (missing) Result panel 136 Specimen collection (procedure) (no date) [facility] (missing) (missing) (missing) Result panel 137 Specimen collection (procedure) (no date) [facility] (missing) (missing) (missing) Result panel 138 Specimen collection (procedure) (no date) [facility] (missing) (missing) (missing) Result panel 139 Specimen collection (procedure) (no date) [facility] (missing) (missing) (missing) Result panel 140 Specimen collection (procedure) (no date) [facility] (missing) (missing) (missing) Result panel 141 Specimen collection (procedure) (no date) [facility] (missing) (missing) (missing) Result panel 142 Specimen collection (procedure) (no date) [facility] (missing) (missing) (missing) Result panel 143 Specimen collection (procedure) (no date) [facility] (missing) (missing) (missing) Result panel 144 Specimen collection (procedure) (no date) [facility] (missing) (missing) (missing) Result panel 145 Specimen collection (procedure) (no date) [facility] (missing) (missing) (missing) Result panel 146 Specimen collection (procedure) (no date) [facility] (missing) (missing) (missing) Result panel 147 Specimen collection (procedure) (no date) [facility] (missing) (missing) (missing) Result panel 148 Specimen collection (procedure) (no date) [facility] (missing) (missing) (missing) Result panel 149 Specimen collection (procedure) (no date) [facility] (missing) (missing) (missing) Result panel 150 Specimen collection (procedure) (no date) [facility] (missing) (missing) (missing) Result panel 151 Specimen collection (procedure) (no date) [facility] (missing) (missing) (missing) Result panel 152 Specimen collection (procedure) (no date) [facility] (missing) (missing) (missing) Result panel 153 Specimen collection (procedure) (no date) [facility] (missing) (missing) (missing) Result panel 154 Specimen collection (procedure) (no date) [facility] (missing) (missing) (missing) Result panel 155 Specimen collection (procedure) (no date) [facility] (missing) (missing) (missing) Result panel 156 Specimen collection (procedure) (no date) [facility] (missing) (missing) (missing) Result panel 157 Specimen collection (procedure) (no date) [facility] (missing) (missing) (missing) Result panel 158 Specimen collection (procedure) (no date) [facility] [facility] (missing) (missing) Result panel 159 Specimen collection (procedure) (no date) [facility] (missing) (missing) (missing) Result panel 160 Specimen collection (procedure) (no date) [facility] (missing) (missing) (missing) Result panel 161 Specimen collection (procedure) (no date) [facility] (missing) (missing) (missing) Result panel 162 Specimen collection (procedure) (no date) [facility] (missing) (missing) (missing) Result panel 163 Specimen collection (procedure) (no date) [facility] (missing) (missing) (missing) Result panel 164 Specimen collection (procedure) (no date) [facility] (missing) (missing) (missing) Result panel 165 Specimen collection (procedure) (no date) [facility] (missing) (missing) (missing) Result panel 166 Specimen collection (procedure) (no date) [facility] (missing) (missing) (missing) Result panel 167 Specimen collection (procedure) (no date) [facility] (missing) (missing) (missing) Result panel 168 Specimen collection (procedure) (no date) [facility] (missing) (missing) (missing) Result panel 169 Specimen collection (procedure) (no date) [facility] (missing) (missing) (missing) Result panel 170 Specimen collection (procedure) (no date) [facility] (missing) (missing) (missing) Result panel 171 Specimen collection (procedure) (no date) [facility] (missing) (missing) (missing) Result panel 172 Specimen collection (procedure) (no date) [facility] (missing) (missing) (missing) Result panel 173 Specimen collection (procedure) (no date) [facility] (missing) (missing) (missing) Result panel 174 Specimen collection (procedure) (no date) [facility] (missing) (missing) (missing) Result panel 175 Specimen collection (procedure) (no date) [facility] (missing) (missing) (missing) Result panel 176 Specimen collection (procedure) (no date) [facility] (missing) (missing) (missing) Result panel 177 Specimen collection (procedure) (no date) [facility] (missing) (missing) (missing) Result panel 178 Specimen collection (procedure) (no date) [facility] (missing) (missing) (missing) Result panel 179 Specimen collection (procedure) (no date) [facility] (missing) (missing) (missing) Result panel 180 Specimen collection (procedure) (no date) [facility] (missing) (missing) (missing) Result panel 181 Specimen collection (procedure) (no date) [facility] (missing) (missing) (missing) Result panel 182 Specimen collection (procedure) (no date) [facility] (missing) (missing) (missing) Result panel 183 Specimen collection (procedure) (no date) [facility] (missing) (missing) (missing) Result panel 184 Specimen collection (procedure) (no date) [facility] (missing) (missing) (missing) Result panel 185 Specimen collection (procedure) (no date) [facility] (missing) (missing) (missing) Result panel 186 Specimen collection (procedure) (no date) [facility] (missing) (missing) (missing) Result panel 187 Specimen collection (procedure) (no date) [facility] (missing) (missing) (missing) Result panel 188 Specimen collection (procedure) (no date) [facility] (missing) (missing) (missing) Result panel 189 Specimen collection (procedure) (no date) [facility] (missing) (missing) (missing) Result panel 190 Specimen collection (procedure) (no date) [facility] (missing) (missing) (missing) Result panel 191 Specimen collection (procedure) (no date) [facility] (missing) (missing) (missing) Result panel 192 Specimen collection (procedure) (no date) [facility] (missing) (missing) (missing) Result panel 193 Specimen collection (procedure) (no date) [facility] (missing) (missing) (missing) Result panel 194 Specimen collection (procedure) (no date) [facility] (missing) (missing) (missing) Result panel 195 Specimen collection (procedure) (no date) [facility] (missing) (missing) (missing) Result panel 196 Specimen collection (procedure) (no date) [facility] (missing) (missing) (missing) Result panel 197 Specimen collection (procedure) (no date) [facility] (missing) (missing) (missing) Result panel 198 Specimen collection (procedure) (no date) [facility] (missing) (missing) (missing) Result panel 199 Specimen collection (procedure) (no date) [facility] (missing) (missing) (missing) Result panel 200 Specimen collection (procedure) (no date) [facility] (missing) (missing) (missing) Result panel 201 Specimen collection (procedure) (no date) [facility] (missing) (missing) (missing) Result panel 202 Specimen collection (procedure) (no date) [facility] (missing) (missing) (missing) Result panel 203 Specimen collection (procedure) (no date) [facility] (missing) (missing) (missing) Result panel 204 Specimen collection (procedure) (no date) [facility] (missing) (missing) (missing) Result panel 205 Specimen collection (procedure) (no date) [facility] (missing) (missing) (missing) Result panel 206 Specimen collection (procedure) (no date) [facility] (missing) (missing) (missing) Result panel 207 Specimen collection (procedure) (no date) [facility] (missing) (missing) (missing) Result panel 208 Specimen collection (procedure) (no date) [facility] (missing) (missing) (missing) Result panel 209 Specimen collection (procedure) (no date) [facility] (missing) (missing) (missing) Result panel 210 Specimen collection (procedure) (no date) [facility] (missing) (missing) (missing) Result panel 211 Specimen collection (procedure) (no date) [facility] (missing) (missing) (missing) Result panel 212 Specimen collection (procedure) (no date) [facility] (missing) (missing) (missing) Result panel 213 Specimen collection (procedure) (no date) [facility] (missing) (missing) (missing) Result panel 214 Specimen collection (procedure) (no date) [facility] (missing) (missing) (missing) Result panel 215 Specimen collection (procedure) (no date) [facility] (missing) (missing) (missing) Result panel 216 Specimen collection (procedure) (no date) [facility] (missing) (missing) (missing) Result panel 217 Specimen collection (procedure) (no date) [facility] (missing) (missing) (missing) Result panel 218 Specimen collection (procedure) (no date) [facility] (missing) (missing) (missing) Result panel 219 Specimen collection (procedure) (no date) [facility] (missing) (missing) (missing) Result panel 220 Specimen collection (procedure) (no date) [facility] (missing) (missing) (missing) Result panel 221 Specimen collection (procedure) (no date) [facility] (missing) (missing) (missing) Result panel 222 Specimen collection (procedure) (no date) [facility] (missing) (missing) (missing) Result panel 223 Specimen collection (procedure) (no date) [facility] (missing) (missing) (missing) Result panel 224 Specimen collection (procedure) (no date) [facility] (missing) (missing) (missing) Result panel 225 Specimen collection (procedure) (no date) [facility] (missing) (missing) (missing) Result panel 226 Specimen collection (procedure) (no date) [facility] (missing) (missing) (missing) Result panel 227 Specimen collection (procedure) (no date) [facility] (missing) (missing) (missing) Result panel 228 Specimen collection (procedure) (no date) [facility] (missing) (missing) (missing) Result panel 229 Specimen collection (procedure) (no date) [facility] (missing) (missing) (missing) Result panel 230 Specimen collection (procedure) (no date) [facility] (missing) (missing) (missing) Result panel 231 Specimen collection (procedure) (no date) [facility] (missing) (missing) (missing) Result panel 232 Specimen collection (procedure) (no date) [facility] (missing) (missing) (missing) Result panel 233 Specimen collection (procedure) (no date) [facility] (missing) (missing) (missing) Result panel 234 Specimen collection (procedure) (no date) [facility] (missing) (missing) (missing) Result panel 235 Specimen collection (procedure) (no date) [facility] (missing) (missing) (missing) Result panel 236 Specimen collection (procedure) (no date) [facility] (missing) (missing) (missing) Result panel 237 Specimen collection (procedure) (no date) [facility] (missing) (missing) (missing) Result panel 238 Specimen collection (procedure) (no date) [facility] (missing) (missing) (missing) Result panel 239 Specimen collection (procedure) (no date) [facility] (missing) (missing) (missing) Result panel 240 Specimen collection (procedure) (no date) [facility] (missing) (missing) (missing) Result panel 241 Specimen collection (procedure) (no date) [facility] (missing) (missing) (missing) Result panel 242 Specimen collection (procedure) (no date) [facility] (missing) (missing) (missing) Result panel 243 Specimen collection (procedure) (no date) [facility] (missing) (missing) (missing) Result panel 244 Specimen collection (procedure) (no date) [facility] (missing) (missing) (missing) Result panel 245 Specimen collection (procedure) (no date) [facility] (missing) (missing) (missing) Result panel 246 Specimen collection (procedure) (no date) [facility] (missing) (missing) (missing) Result panel 247 Specimen collection (procedure) (no date) [facility] (missing) (missing) (missing) Result panel 248 Specimen collection (procedure) (no date) [facility] (missing) (missing) (missing) Result panel 249 Specimen collection (procedure) (no date) [facility] (missing) (missing) (missing) Result panel 250 Specimen collection (procedure) (no date) [facility] (missing) (missing) (missing) Result panel 251 Specimen collection (procedure) (no date) [facility] (missing) (missing) (missing) Result panel 252 Specimen collection (procedure) (no date) [facility] (missing) (missing) (missing) Result panel 253 Specimen collection (procedure) (no date) [facility] (missing) (missing) (missing) Result panel 254 Specimen collection (procedure) (no date) [facility] (missing) (missing) (missing) Result panel 255 Specimen collection (procedure) (no date) [facility] (missing) (missing) (missing) Result panel 256 Specimen collection (procedure) (no date) [facility] (missing) (missing) (missing) Result panel 257 Specimen collection (procedure) (no date) [facility] (missing) (missing) (missing) Result panel 258 Specimen collection (procedure) (no date) [facility] (missing) (missing) (missing) Result panel 259 Specimen collection (procedure) (no date) [facility] (missing) (missing) (missing) Result panel 260 Specimen collection (procedure) (no date) [facility] (missing) (missing) (missing) Result panel 261 Specimen collection (procedure) (no date) [facility] (missing) (missing) (missing) Result panel 262 Specimen collection (procedure) (no date) [facility] (missing) (missing) (missing) Result panel 263 Specimen collection (procedure) (no date) [facility] (missing) (missing) (missing) Result panel 264 Specimen collection (procedure) (no date) [facility] (missing) (missing) (missing) Result panel 265 Specimen collection (procedure) (no date) [facility] (missing) (missing) (missing) Result panel 266 Specimen collection (procedure) (no date) [facility] (missing) (missing) (missing) Result panel 267 Specimen collection (procedure) (no date) [facility] (missing) (missing) (missing) Result panel 268 Specimen collection (procedure) (no date) [facility] (missing) (missing) (missing) Result panel 269 Specimen collection (procedure) (no date) [facility] (missing) (missing) (missing) Result panel 270 Specimen collection (procedure) (no date) [facility] (missing) (missing) (missing) Result panel 271 Specimen collection (procedure) (no date) [facility] (missing) (missing) (missing) Result panel 272 Specimen collection (procedure) (no date) [facility] (missing) (missing) (missing) Result panel 273 Specimen collection (procedure) (no date) [facility] (missing) (missing) (missing) Result panel 274 Specimen collection (procedure) (no date) [facility] (missing) (missing) (missing) Result panel 275 Specimen collection (procedure) (no date) [facility] (missing) (missing) (missing) Result panel 276 Specimen collection (procedure) (no date) [facility] (missing) (missing) (missing) Result panel 277 Specimen collection (procedure) (no date) [facility] (missing) (missing) (missing) Result panel 278 Specimen collection (procedure) (no date) [facility] (missing) (missing) (missing) Result panel 279 Specimen collection (procedure) (no date) [facility] (missing) (missing) (missing) Result panel 280 Specimen collection (procedure) (no date) [facility] (missing) (missing) (missing) Result panel 281 Specimen collection (procedure) (no date) [facility] (missing) (missing) (missing) Result panel 282 Specimen collection (procedure) (no date) [facility] (missing) (missing) (missing) Result panel 283 Specimen collection (procedure) (no date) [facility] (missing) (missing) (missing) Result panel 284 Specimen collection (procedure) (no date) [facility] (missing) (missing) (missing) Result panel 285 Specimen collection (procedure) (no date) [facility] (missing) (missing) (missing) Result panel 286 Specimen collection (procedure) (no date) [facility] (missing) (missing) (missing) Result panel 287 Specimen collection (procedure) (no date) [facility] (missing) (missing) (missing) Result panel 288 Specimen collection (procedure) (no date) [facility] (missing) (missing) (missing) Result panel 289 Specimen collection (procedure) (no date) [facility] (missing) (missing) (missing) Result panel 290 Specimen collection (procedure) (no date) [facility] (missing) (missing) (missing) Result panel 291 Specimen collection (procedure) (no date) [facility] (missing) (missing) (missing) Result panel 292 Specimen collection (procedure) (no date) [facility] (missing) (missing) (missing) Result panel 293 Specimen collection (procedure) (no date) [facility] (missing) (missing) (missing) Result panel 294 Specimen collection (procedure) (no date) [facility] (missing) (missing) (missing) Result panel 295 Specimen collection (procedure) (no date) [facility] (missing) (missing) (missing) Result panel 296 Specimen collection (procedure) (no date) [facility] (missing) (missing) (missing) Result panel 297 Specimen collection (procedure) (no date) [facility] (missing) (missing) (missing) Result panel 298 Specimen collection (procedure) (no date) [facility] (missing) (missing) (missing) Result panel 299 Specimen collection (procedure) (no date) [facility] (missing) (missing) (missing) Result panel 300 Specimen collection (procedure) (no date) [facility] (missing) (missing) (missing) Result panel 301 Specimen collection (procedure) (no date) [facility] (missing) (missing) (missing) Result panel 302 Specimen collection (procedure) (no date) [facility] (missing) (missing) (missing) Result panel 303 Specimen collection (procedure) (no date) [facility] (missing) (missing) (missing) Result panel 304 Specimen collection (procedure) (no date) [facility] (missing) (missing) (missing) Result panel 305 Specimen collection (procedure) (no date) [facility] (missing) (missing) (missing) Result panel 306 Specimen collection (procedure) (no date) [facility] (missing) (missing) (missing) Result panel 307 Specimen collection (procedure) (no date) [facility] (missing) (missing) (missing) Result panel 308 Specimen collection (procedure) (no date) [facility] (missing) (missing) (missing) Result panel 309 Specimen collection (procedure) (no date) [facility] (missing) (missing) (missing) Result panel 310 Specimen collection (procedure) (no date) [facility] (missing) (missing) (missing) Result panel 311 Specimen collection (procedure) (no date) [facility] (missing) (missing) (missing) Result panel 312 Specimen collection (procedure) (no date) [facility] (missing) (missing) (missing) Result panel 313 Specimen collection (procedure) (no date) [facility] (missing) (missing) (missing) Result panel 314 Specimen collection (procedure) (no date) [facility] (missing) (missing) (missing) Result panel 315 Specimen collection (procedure) (no date) [facility] (missing) (missing) (missing) Result panel 316 Specimen collection (procedure) (no date) [facility] (missing) (missing) (missing) Result panel 317 Specimen collection (procedure) (no date) [facility] (missing) (missing) (missing) Result panel 318 Specimen collection (procedure) (no date) [facility] (missing) (missing) (missing) Result panel 319 Specimen collection (procedure) (no date) [facility] (missing) (missing) (missing) Result panel 320 Specimen collection (procedure) (no date) [facility] (missing) (missing) (missing) Result panel 321 Specimen collection (procedure) (no date) [facility] (missing) (missing) (missing) Result panel 322 Specimen collection (procedure) (no date) [facility] (missing) (missing) (missing) Result panel 323 Specimen collection (procedure) (no date) [facility] (missing) (missing) (missing) Result panel 324 Specimen collection (procedure) (no date) [facility] (missing) (missing) (missing) Result panel 325 Specimen collection (procedure) (no date) [facility] (missing) (missing) (missing) Result panel 326 Specimen collection (procedure) (no date) [facility] (missing) (missing) (missing) Result panel 327 Specimen collection (procedure) (no date) [facility] (missing) (missing) (missing) Result panel 328 Specimen collection (procedure) (no date) [facility] (missing) (missing) (missing) Result panel 329 Specimen collection (procedure) (no date) [facility] (missing) (missing) (missing) Result panel 330 Specimen collection (procedure) (no date) [facility] (missing) (missing) (missing) Result panel 331 Specimen collection (procedure) (no date) [facility] (missing) (missing) (missing) Result panel 332 Specimen collection (procedure) (no date) [facility] (missing) (missing) (missing) Result panel 333 Specimen collection (procedure) (no date) [facility] (missing) (missing) (missing) Result panel 334 Specimen collection (procedure) (no date) [facility] (missing) (missing) (missing) Result panel 335 Specimen collection (procedure) (no date) [facility] (missing) (missing) (missing) Result panel 336 Specimen collection (procedure) (no date) [facility] (missing) (missing) (missing) Result panel 337 Specimen collection (procedure) (no date) [facility] (missing) (missing) (missing) Result panel 338 Specimen collection (procedure) (no date) [facility] (missing) (missing) (missing) Result panel 339 Specimen collection (procedure) (no date) [facility] (missing) (missing) (missing) Result panel 340 Specimen collection (procedure) (no date) [facility] (missing) (missing) (missing) Result panel 341 Specimen collection (procedure) (no date) [facility] (missing) (missing) (missing) Result panel 342 Specimen collection (procedure) (no date) [facility] (missing) (missing) (missing) Result panel 343 Specimen collection (procedure) (no date) [facility] (missing) (missing) (missing) Result panel 344 Specimen collection (procedure) (no date) [facility] (missing) (missing) (missing) Result panel 345 Specimen collection (procedure) (no date) [facility] (missing) (missing) (missing) Result panel 346 Specimen collection (procedure) (no date) [facility] (missing) (missing) (missing) Result panel 347 Specimen collection (procedure) (no date) [facility] (missing) (missing) (missing) Result panel 348 Specimen collection (procedure) (no date) [facility] (missing) (missing) (missing) Result panel 349 Specimen collection (procedure) (no date) [facility] (missing) (missing) (missing) Result panel 350 Specimen collection (procedure) (no date) [facility] (missing) (missing) (missing) Result panel 351 Specimen collection (procedure) (no date) [facility] (missing) (missing) (missing) Result panel 352 Specimen collection (procedure) (no date) [facility] (missing) (missing) (missing) Result panel 353 Specimen collection (procedure) (no date) [facility] (missing) (missing) (missing) Result panel 354 Specimen collection (procedure) (no date) [facility] (missing) (missing) (missing) Result panel 355 Specimen collection (procedure) (no date) [facility] (missing) (missing) (missing) Result panel 356 Specimen collection (procedure) (no date) [facility] (missing) (missing) (missing) Result panel 357 Specimen collection (procedure) (no date) [facility] (missing) (missing) (missing) Result panel 358 Specimen collection (procedure) (no date) [facility] (missing) (missing) (missing) Result panel 359 Specimen collection (procedure) (no date) [facility] (missing) (missing) (missing) Result panel 360 Specimen collection (procedure) (no date) [facility] (missing) (missing) (missing) Result panel 361 Specimen collection (procedure) (no date) [facility] (missing) (missing) (missing) Result panel 362 Specimen collection (procedure) (no date) [facility] (missing) (missing) (missing) Result panel 363 Specimen collection (procedure) (no date) [facility] (missing) (missing) (missing) Result panel 364 Specimen collection (procedure) (no date) [facility] (missing) (missing) (missing) Result panel 365 Specimen collection (procedure) (no date) [facility] (missing) (missing) (missing) Result panel 366 Specimen collection (procedure) (no date) [facility] (missing) (missing) (missing) Result panel 367 Specimen collection (procedure) (no date) [facility] (missing) (missing) (missing) Result panel 368 Specimen collection (procedure) (no date) [facility] (missing) (missing) (missing) Result panel 369 Specimen collection (procedure) (no date) [facility] (missing) (missing) (missing) Result panel 370 Specimen collection (procedure) (no date) [facility] (missing) (missing) (missing) Result panel 371 Specimen collection (procedure) (no date) [facility] (missing) (missing) (missing) Result panel 372 Specimen collection (procedure) (no date) [facility] (missing) (missing) (missing) Result panel 373 Specimen collection (procedure) (no date) [facility] (missing) (missing) (missing) Result panel 374 Specimen collection (procedure) (no date) [facility] (missing) (missing) (missing) Result panel 375 Specimen collection (procedure) (no date) [facility] (missing) (missing) (missing) Result panel 376 Specimen collection (procedure) (no date) [facility] (missing) (missing) (missing) Result panel 377 Specimen collection (procedure) (no date) [facility] (missing) (missing) (missing) Result panel 378 Specimen collection (procedure) (no date) [facility] (missing) (missing) (missing) Result panel 379 Specimen collection (procedure) (no date) [facility] (missing) (missing) (missing) Result panel 380 Specimen collection (procedure) (no date) [facility] (missing) (missing) (missing) Result panel 381 Specimen collection (procedure) (no date) [facility] (missing) (missing) (missing) Result panel 382 Specimen collection (procedure) (no date) [facility] (missing) (missing) (missing) Result panel 383 Specimen collection (procedure) (no date) [facility] (missing) (missing) (missing) Result panel 384 Specimen collection (procedure) (no date) [facility] (missing) (missing) (missing) Result panel 385 Specimen collection (procedure) (no date) [facility] (missing) (missing) (missing) Result panel 386 Specimen collection (procedure) (no date) [facility] (missing) (missing) (missing) Result panel 387 Specimen collection (procedure) (no date) [facility] (missing) (missing) (missing) Result panel 388 Specimen collection (procedure) (no date) [facility] (missing) (missing) (missing) Result panel 389 Specimen collection (procedure) (no date) [facility] (missing) (missing) (missing) Result panel 390 Specimen collection (procedure) (no date) [facility] (missing) (missing) (missing) Result panel 391 Specimen collection (procedure) (no date) [facility] (missing) (missing) (missing) Result panel 392 Specimen collection (procedure) (no date) [facility] (missing) (missing) (missing) Result panel 393 Specimen collection (procedure) (no date) [facility] (missing) (missing) (missing) Result panel 394 Specimen collection (procedure) (no date) [facility] (missing) (missing) (missing) Result panel 395 Specimen collection (procedure) (no date) [facility] (missing) (missing) (missing) Result panel 396 Specimen collection (procedure) (no date) [facility] (missing) (missing) (missing) Result panel 397 Specimen collection (procedure) (no date) [facility] (missing) (missing) (missing) Result panel 398 Specimen collection (procedure) (no date) [facility] (missing) (missing) (missing) Result panel 399 Specimen collection (procedure) (no date) [facility] (missing) (missing) (missing) Result panel 400 Specimen collection (procedure) (no date) [facility] (missing) (missing) (missing) Result panel 401 Specimen collection (procedure) (no date) [facility] (missing) (missing) (missing) Result panel 402 Specimen collection (procedure) (no date) [facility] (missing) (missing) (missing) Result panel 403 Specimen collection (procedure) (no date) [facility] (missing) (missing) (missing) Result panel 404 Specimen collection (procedure) (no date) [facility] (missing) (missing) (missing) Result panel 405 Specimen collection (procedure) (no date) [facility] (missing) (missing) (missing) Result panel 406 Specimen collection (procedure) (no date) [facility] (missing) (missing) (missing) Result panel 407 Specimen collection (procedure) (no date) [facility] (missing) (missing) (missing) Result panel 408 Specimen collection (procedure) (no date) [facility] (missing) (missing) (missing) Result panel 409 Specimen collection (procedure) (no date) [facility] (missing) (missing) (missing) Result panel 410 Specimen collection (procedure) (no date) [facility] (missing) (missing) (missing) Result panel 411 Specimen collection (procedure) (no date) [facility] (missing) (missing) (missing) Result panel 412 Specimen collection (procedure) (no date) [facility] (missing) (missing) (missing) Result panel 413 Specimen collection (procedure) (no date) [facility] (missing) (missing) (missing) Result panel 414 Specimen collection (procedure) (no date) [facility] (missing) (missing) (missing) Result panel 415 Specimen collection (procedure) (no date) [facility] (missing) (missing) (missing) Result panel 416 Specimen collection (procedure) (no date) [facility] (missing) (missing) (missing) Result panel 417 Specimen collection (procedure) (no date) [facility] (missing) (missing) (missing) Result panel 418 Specimen collection (procedure) (no date) [facility] (missing) (missing) (missing) Result panel 419 Specimen collection (procedure) (no date) [facility] (missing) (missing) (missing) Result panel 420 Specimen collection (procedure) (no date) [facility] (missing) (missing) (missing) Result panel 421 Specimen collection (procedure) (no date) [facility] (missing) (missing) (missing) Result panel 422 Specimen collection (procedure) (no date) [facility] (missing) (missing) (missing) Result panel 423 Specimen collection (procedure) (no date) [facility] (missing) (missing) (missing) Result panel 424 Specimen collection (procedure) (no date) [facility] (missing) (missing) (missing) Result panel 425 Specimen collection (procedure) (no date) [facility] (missing) (missing) (missing) Result panel 426 Specimen collection (procedure) (no date) [facility] (missing) (missing) (missing) Result panel 427 Specimen collection (procedure) (no date) [facility] (missing) (missing) (missing) Result panel 428 Specimen collection (procedure) (no date) [facility] (missing) (missing) (missing) Result panel 429 Specimen collection (procedure) (no date) [facility] (missing) (missing) (missing) Result panel 430 Specimen collection (procedure) (no date) [facility] (missing) (missing) (missing) Result panel 431 Specimen collection (procedure) (no date) [facility] (missing) (missing) (missing) Result panel 432 Specimen collection (procedure) (no date) [facility] (missing) (missing) (missing) Result panel 433 Specimen collection (procedure) (no date) [facility] (missing) (missing) (missing) Result panel 434 Specimen collection (procedure) (no date) [facility] (missing) (missing) (missing) Result panel 435 Specimen collection (procedure) (no date) [facility] (missing) (missing) (missing) Result panel 436 Specimen collection (procedure) (no date) [facility] (missing) (missing) (missing) Result panel 437 Troponin I.cardiac [Mass/volume] in Serum or Plasma 2024-09-27 10:35:07 [facility] < 0.012 ng/mL (missing) (missing) Result panel 438 Natriuretic peptide.B prohormone N-Terminal [Mass/volume] in Serum or Plasma 2024-09-27 10:35:07 [facility] 2300 pg/mL (miss ing) Result panel 439 Bilirubin.total [Mass/volume ] in Serum or Plasma 2024-09-27 10:35:07 [facility] 2.1 mg/dL (missing) Result panel 440 Aspartate aminotransferase [Enzymatic activity/volume] in Serum or Plasma 2024-09-27 10:35:07 [facility] 38 IU/L (m issing) Result panel 441 Alanine aminotransferase [Enzymatic activity/volume] in Serum or Plasma 2024-09-27 10:35:07 [facility] 29 IU/L (m issing) Result panel 442 Alkaline phosphatase [Enzyma tic activity/volume] in Serum or Plasma 2024-09-27 10:35:07 [facility] 120 U/L (miss ing) Result panel 443 Protein total ser/plas 2024-09-27 10:35:07 [facility] 8 .0 g/dL (missing) Result panel 444 Albumin [Mass/volume] in Ser um or Plasma 2024-09-27 10:35:07 [facility] 4.5 g/dL (miss ing) Result panel 445 Globulin [Mass/volume] in Serum by calculation 2024-09-27 10:35:07 [facility] 3.5 g/dL (missing) Result panel 446 Albumin/Globulin [Mass Ratio] in Serum or Plasma 2024-09-27 10:35:07 [facility] 1.3 (miss ing) (missing) Result panel 447 Procalcitonin [Mass/volume] in Serum or Plasma 2024-09-27 10:35:07 [facility] 0.103 ng/mL (missing) Result panel 448 Blood culture 2024-09-27 10:35:07 [facility] NO G ROWTH AFTER 5 DAYS (missing) (missing) Result panel 449 Troponin I.cardiac [Mass/volume] in Serum or Plasma 2024-09-27 10:35:07 [facility] < 0.012 ng/mL (missing) (missing) Result panel 450 Natriuretic peptide.B prohormone N-Terminal [Mass/volume] in Serum or Plasma 2024-09-27 10:35:07 [facility] 2300 pg/mL ([facility]) Result panel 451 Bilirubin.total [Mass/volume ] in Serum or Plasma 2024-09-27 10:35:07 [facility] 2.1 mg/dL (missing) Result panel 452 Aspartate aminotransferase [Enzymatic activity/volume] in Serum or Plasma 2024-09-27 10:35:07 [facility] Result panel 453 Alanine aminotransferase [Enzymatic activity/volume] in Serum or Plasma 2024-09-27 10:35:07 [facility] Result panel 454 Alkaline phosphatase [Enzyma tic activity/volume] in Serum or Plasma 2024-09-27 10:35:07 [facility] 120 U/L ([facility]) Result panel 455 Protein total ser/plas 2024-09-27 10:35:07 [facility] 8 .0 g/dL (missing) Result panel 456 Albumin [Mass/volume] in Ser um or Plasma 2024-09-27 10:35:07 [facility] 4.5 g/dL ([facility]) Result panel 457 Globulin [Mass/volume] in Serum by calculation 2024-09-27 10:35:07 [facility] 3.5 g/dL (missing) Result panel 458 Albumin/Globulin [Mass Ratio] in Serum or Plasma 2024-09-27 10:35:07 [facility] 1.3 ([facility]) (missing) Result panel 459 Procalcitonin [Mass/volume] in Serum or Plasma 2024-09-27 10:35:07 [facility] 0.103 ng/mL (missing) Result panel 460 White blood cell count 2024-09-27 10:35:07 [facility] 1 1.3 X10^3/uL (missing) Result panel 461 Red blood cell count 2024-09-27 10:35:07 [facility] 5.2 8 X10^6/uL (missing) Result panel 462 Hemoglobin 2024-09-27 10:35:07 [facility] 15.8 g/d L (missing) Result panel 463 Hematocrit 2024-09-27 10:35:07 [facility] 46.2 % (missing) Result panel 464 MCV (mean corpuscular volume ) determination 2024-09-27 10:35:07 [facility] 87.4 fL (mis sing) Result panel 465 Mean corpuscular hemoglobin (MCH) determination 2024-09-27 10:35:07 [facility] 30.0 PG (missing) Result panel 466 Mean corpuscular hemoglobin concentration (MCHC) determination 2024-09-27 10:35:07 [facility] 34.3 % (mis sing) Result panel 467 Red cell distribution width determination 2024-09-27 10:35:07 [facility] 15.2 % (mis sing) Result panel 468 Platelet count 2024-09-27 10:35:07 [facility] 282 X10^3/uL (missing) Result panel 469 Automated neutrophil % 2024-09-27 10:35:07 [facility] 7 5.8 % (missing) Result panel 470 Automated lymphocyte % 2024-09-27 10:35:07 [facility] 1 2.1 % (missing) Result panel 471 Automated monocyte % 2024-09-27 10:35:07 [facility] 11. 1 % (missing) Result panel 472 Automated eosinophil % 2024-09-27 10:35:07 [facility] 0 .7 % (missing) Result panel 473 Automated basophil % 2024-09-27 10:35:07 [facility] 0.3 % (missing) Result panel 474 Absolute neutrophil count 2024-09-27 10:35:07 [facility]600 /[facility]L (missing) Result panel 475 [facility] 2024-09-27 [facility] ([facility] Result panel 476 Automated blood monocyte count 2024-09-27 10:35:07 [facility] 1300 /uL (missing) Result panel 477 Automated eosinophil count 2024-09-27 [facility] Result panel 478 Automated basophil count 2024-09-27 10:35:07 [facility] 0 /uL (missing) Result panel 479 Serum prothrombin time 2024-09-27 10:35:07 [facility] 3 0.8 SECONDS (missing) Result panel 480 INR in Platelet poor plasma by Coagulation assay 2024-09-27 10:35:07 [facility] 2.8 (missing) (miss ing) Result panel 481 Troponin I.cardiac [Mass/volume] in Serum or Plasma 2024-09-27 10:35:07 [facility] < 0.012 ng/mL (missing) (missing) Result panel 482 Natriuretic peptide.B prohormone N-Terminal [Mass/volume] in Serum or Plasma 2024-09-27 10:35:07 [facility] 2300 pg/mL (miss [facility]) Result panel 483 Sodium [Moles/volume] in Serum or Plasma 2024-09-27 10:35:07 [facility] 139 mmol/L ([facility]) Result panel 484 Potassium [Moles/volume] in Serum or Plasma 2024-09-27 10:35:07 [facility] 4.5 mmol/L ([facility]) Result panel 485 Chloride [Moles/volume] in Serum or Plasma 2024-09-27 10:35:07 [facility] 106 mmol/L ([facility]) Result panel 486 Carbon dioxide, total [Moles/volume] in Serum or Plasma 2024-09-27 10:35:07 [facility] 19 mmol/L ([facility]) Result panel 487 Urea nitrogen [Mass/volume] in Serum or Plasma 2024-09-27 10:35:07 [facility] 18 mg/dL ([facility]) Result panel 488 Creatinine [Mass/volume] in Serum or Plasma 2024-09-27 10:35:07 [facility] 1.27 mg/dL ([facility]) Result panel 489 Glomerular filtration rate (GFR) estimation 2024-09-27 10:35:07 [facility] 55 mL/min ( missing) Result panel 490 BUN/creatinine ratio 2024-09-27 10:35:07 [facility] 14. 2 (missing) (missing) Result panel 491 Glucose [Mass/volume] in Serum or Plasma 2024-09-27 10:35:07 [facility] 115 mg/dL ([facility]) Result panel 492 Lactate [Mass/volume] in Serum or Plasma 2024-09-27 10:35:07 [facility] 2.2 mmol/L ([facility]) Result panel 493 Calcium [Mass/volume] in Serum or Plasma 2024-09-27 10:35:07 [facility] 8.9 mg/dL ([facility]) Result panel 494 Bilirubin.total [Mass/volume ] in Serum or Plasma 2024-09-27 10:35:07 [facility] 2.1 mg/dL (missing) Result panel 495 Aspartate aminotransferase [Enzymatic activity/volume] in Serum or Plasma 2024-09-27 10:35:07 [facility] 38 IU/L ([facility]) Result panel 496 Alanine aminotransferase [Enzymatic activity/volume] in Serum or Plasma 2024-09-27 10:35:07 [facility] 29 IU/L ([facility]) Result panel 497 Alkaline phosphatase [Enzyma tic activity/volume] in Serum or Plasma 2024-09-27 10:35:07 [facility] 120 U[facility]L [facility] Result panel 498 Protein total ser/plas 2024-09-27 10:35:07 [facility] 8 .0 g/dL (missing) Result panel 499 Albumin [Mass/volume] in Ser um or Plasma 2024-09-27 10:35:07 [facility] 4.5 g/dL (miss ing) Result panel 500 Globulin [Mass/volume] in Serum by calculation 2024-09-27 10:35:07 [facility] 3.5 g/dL (missing) Result panel 501 Albumin/Globulin [Mass Ratio] in Serum or Plasma 2024-09-27 10:35:07 [facility] 1.3 (miss ing) (missing) Result panel 502 Procalcitonin [Mass/volume] in Serum or Plasma 2024-09-27 10:35:07 [facility] 0.103 ng/mL (missing) Result panel 503 Blood culture 2024-09-27 10:50:07 [facility] NO G ROWTH AFTER 5 DAYS (missing) (missing) Result panel 504 Venous blood pH measurement 2024-09-27 10:53:07 [facility] 7.42 (missing) (miss ing) Result panel 505 Venous blood partial pressur e of carbon dioxide measurement 2024-09-27 10:53:07 [facility] 33.3 m mHg (missing) Result panel 506 Venous blood partial pressur e of oxygen measurement 2024-09-27 10:53:07 [facility] 30 mmHg (missing) Result panel 507 Venous blood oxygen saturation 2024-09-27 10:53:07 [facility] 59 % (missing) Result panel 508 Venous blood pH measurement 2024-09-27 10:53:07 [facility] 7.42 (missing) (miss ing) Result panel 509 Venous blood partial pressur e of carbon dioxide measurement 2024-09-27 10:53:07 [facility] 33.3 m mHg (missing) Result panel 510 Venous blood partial pressur e of oxygen measurement 2024-09-27 10:53:07 [facility] 30 mmHg (missing) Result panel 511 Venous blood oxygen saturation 2024-09-27 10:53:07 [facility] 59 % (missing) Result panel 512 Venous blood pH measurement 2024-09-27 10:53:07 [facility] 7.42 (missing) (miss ing) Result panel 513 Venous blood partial pressur e of carbon dioxide measurement 2024-09-27 10:53:07 [facility] 33.3 m mHg (missing) Result panel 514 Venous blood partial pressur e of oxygen measurement 2024-09-27 10:53:07 [facility] 30 mmHg (missing) Result panel 515 Venous blood oxygen saturation 2024-09-27 10:53:07 [facility] 59 % (missing) Result panel 516 Base Excess VBG [facility]24-[facility] -2.2 mm ol/l (missing) Total CO2 VBG 2024-09-27 [facility] 20 mmol /l (missing) HCO3 VBG 2024-09-27 [facility] 21 mmol/l (missing) PO2 VBG 2024-09-27 10:[address] 30 mmhg (missing) PCO2 VBG 2024-09-27 10:57 [facility] 33.3 mmhg (missing) Fractionated Inspired Oxygen 2024-09-27 [facility] 40.0 % % (missing) Oxygen Saturation VBG 2024-09-27 10:57 [facility] 59 % (missing) pH VBG 2024-09-27 10:57 [facility] 7.42 (missing ) (missing) Result panel 517 X-ray report 2024-09-27 11:05 [facility] (missing) (mis sing) (missing) Result panel 518 X-ray report 2024-09-27 11:05 [facility] (missing) (mis sing) (missing) Result panel 519 Basophils Absolute Auto 2024-09-27 11:16 [facility] 0 /ul (missing) Basophils Percent Auto 2024-09-27 11:16 [facility] 0.3 % (missing) Eosinophils Percent Auto 2024-09-27 11:16 [facility] 0.7 % (missing) Eosinophils Absolute Auto 2024-09-27 11:16 [facility] 10 0 /ul (missing) Monocytes Percent Auto 2024-09-27 11:16 [facility] 11.1 % (missing) White Blood Cell Count 2024-09-27 11:16 [facility] 11.3 x10 3/ul (missing) Lymphocytes Percent Auto 2024-09-27 11:16 [facility] 12. 1 % (missing) Monocytes Absolute Auto 2024-09-27 11:16 [facility] 1300 /ul (missing) Lymphocytes Absolute Auto 2024-09-27 11:16 [facility] 14 00 /ul (missing) Red Cell Distribution Width 2024-09-27 11:16 [facility] 15.2 % (missing) Hemoglobin 2024-09-27 11:16 [facility] 15.8 g/dl (missing) Platelet Count 2024-09-27 11:16 [facility] 282 x10 3/ul (missing) Mean Corpuscular Hemoglobin 2024-09-27 11:16 [facility] 30.0 pg (missing) Mean Corpuscular HGB Conc 2024-09-27 11:16 [facility] 34 .3 % (missing) Hematocrit 2024-09-27 11:16 [facility] 46.2 % (missing) Red Blood Cell Count 2024-09-27 11:16 [facility] 5.28 x10 6/ul (missing) Neutrophils Percent Auto 2024-09-27 11:16 [facility] 75. 8 % (missing) Neutrophils Absolute Auto 2024-09-27 11:16 [facility] 86 00 /ul (missing) Mean Corpuscular Volume 2024-09-27 11:16 [facility] 87.4 fl (missing) Result panel 520 INR 2024-09-27 11:19 [facility] 2.8 (missing ) (missing) Prothrombin Time 2024-09-27 11:19 [facility] 30.8 s econds Comment If patient is on warfarin Result panel 521 Creatinine 2024-09-27 11:27 [facility] 1.27 mg/dl (missing) Albumin Globulin Ratio 2024-09-27 11:27 [facility] 1.3 (missing) (missing) Chloride 2024-09-27 11:27 [facility] 106 mmol/l (missing) Glucose 2024-09-27 11:27 [facility] 115 mg/dl (missing) Alkaline Phosphatase 2024-09-27 11:27 [facility] 120 u/l (missing) Sodium 2024-09-27 11:27 [facility] 139 mmol/l Physician Instructions if pt has history of CHF BUN Creatinine Ratio 2024-09-27 11:27 [facility] 14.2 (missing) (missing) Blood Urea Nitrogen 2024-09-27 11:27 [facility] 18 mg/dl (missing) Carbon Dioxide 2024-09-27 11:27 [facility] 19 mmol/l (missing) Bilirubin Total 2024-09-27 11:27 [facility] 2.1 mg/dl (missing) Lactate (Lactic Acid) 2024-09-27 11:27 [facility] 2.2 mmol/l Yes/No query for Sepsis Lactate Rule Y Alanine Aminotransferase 2024-09-27 11:27 [facility] 29 iu/l (missing) Globulin 2024-09-27 11:27 [facility] 3.5 g/dl (missing) Aspartate Aminotransferase 2024-09-27 11:27 [facility] 38 iu/l (missing) Albumin 2024-09-27 11:27 [facility] 4.5 g/dl (missing) Potassium 2024-09-27 11:27 [facility] 4.5 mmol/l (missing) Estimated Glomerular Filt Rate 2024-09-27 11:27 [facility] 55 ml/min Reported eGFR is based the CKD-EPI 2020 equation that does not use a race coefficient. An eGFR below 60 mL/min/1.73m2 suggests that some kidney damage has occurred, and indicative of chronic kidney disease if persisting greater than 3 months. An eGFR less than 15 is indicative of kidney failure. Total Protein 2024-09-27 11:27 [facility] 8.0 g/dl (missing) Calcium 2024-09-27 11:27 [facility] 8.9 mg/dl (missing) Result panel 522 Troponin I 2024-09-27 11:34 [facility] < 0.012 ng/ml Physician Instructions if pt has history of CHF Ortho Troponin-I Recommended Upper Reference Range & Cutoff The 99th Percentile URL: 0.034 ng/mL AMI Diagnostic Cutoff: 0.120 ng/mL Creatinine 2024-09-27 11:34 [facility] 1.27 mg/dl (missing) Albumin Globulin Ratio 2024-09-27 11:34 [facility] 1.3 (missing) (missing) Chloride 2024-09-27 11:34 [facility] 106 mmol/l (missing) Glucose 2024-09-27 11:34 [facility] 115 mg/dl (missing) Alkaline Phosphatase 2024-09-27 11:34 [facility] 120 u/l (missing) Sodium 2024-09-27 11:34 [facility] 139 mmol/l Physician Instructions if pt has history of CHF BUN Creatinine Ratio 2024-09-27 11:34 [facility] 14.2 (missing) (missing) Blood Urea Nitrogen 2024-09-27 11:34 [facility] 18 mg/dl (missing) Carbon Dioxide 2024-09-27 11:34 [facility] 19 mmol/l (missing) Bilirubin Total 2024-09-27 11:34 [facility] 2.1 mg/dl (missing) NT-proBNP (BNP-Adult 18+) 2024-09-27 11:34 [facility] 2300 pg/ml Physician Instructions if pt has history of CHF The following cut-points have been suggested for the use of proBNP for the diagnostic evaluation of heart failure (HF) in patients with acute dyspnea: Modality Age in Years Optimal Cut-Off -------- Heart Failure Unlikely: Exclusion Age Independent 300 pg/mL Heart Failure Likely: Diagnostic <50 450 pg/mL 50-75 900 pg/mL >75 1800 pg/mL The 300 pg/mL age-independent rule-out cutoff can be used to identify ED patients in whom HF (heart failuire) is unlikely and who need further investigations for non-cardiac causes of dyspnea. The natriuretic peptides values increase with age, therefore, applying age-dependent rule-in cutoffs (450, 900, and 1800 pg/mL) increases the specificity and positive predictive value for diagnosing patients in whom HF is likely. As mild natriuretic peptides elevations can be caused by non-HF conditions, VITROS NT-proBNP II test results between the exclusion and the diagnosis cutoffs should be considered in the context of the clinical presentation and physical examination in order to correctly identify or exclude HF. Alanine Aminotransferase 2024-09-27 11:34 [facility] 29 iu/l (missing) Globulin 2024-09-27 11:34 [facility] 3.5 g/dl (missing) Aspartate Aminotransferase 2024-09-27 11:34 [email or web address] 38 iu/l (missing) Albumin 2024-09-27 11:34 [email or web address] 4.5 g/dl (missing) Potassium 2024-09-27 11:34 [email or web address] 4.5 mmol/l (missing) Estimated Glomerular Filt Rate 2024-09-27 11:34 [facility] 55 ml/min Reported eGFR is based the CKD-EPI 2020 equation that does not use a race coefficient. An eGFR below 60 mL/min/1.73m2 suggests that some kidney damage has occurred, and indicative of chronic kidney disease if persisting greater than 3 months. An eGFR less than 15 is indicative of kidney failure. Total Protein 2024-09-27 11:34 [email or web address] [facility] 8.0 g/dl (missing) Calcium 2024-09-27 11:34 [email or web address] 8.9 mg/dl (missing) Result panel 523 Lactate [Mass/volume] in Serum or Plasma 2024-09-27 13:25:07 [facility] 1.9 mmol/L ([facility]) Result panel 524 Lactate [Mass/volume] in Serum or Plasma 2024-09-27 13:25:07 [facility] 1.9 mmol/L ([facility]) Result panel 525 Procalcitonin 2024-09-27 13:28 [facility] 0.103 ng/m l ADD ON TO C132 OR C133 <0.5 ng/mL Systemic infection (sepsis) not likely >0.5- <2.0 ng/mL Systemic infection possible and should be correlated with patient's clinical condition. >2.0 - <10.0 ng/mL Systemic infection is likely. High risk for progression to sever sepsis/ or septic shock. >10.0 ng/mL Important systemic inflammoratory response, almost exclusively due to severe bacterial sepsis or septic shock. Lower Respiratory Tract Infection: <0.1 ng/mL Indicates absence of bacterial infection. >=0.1- <0.25 ng/mL Bacterial infection unlikely >=0.25- <0.5 ng/mL Bacterial infection possible >=0.5 ng/mL Suggests the presence of bacterial infection. Neonates <48 hours old have increased PCT levels without corresponding to sepsis. Result panel 526 Lactate 2HR (Lactic Acid Rflx) 2024-09-27 13:54 [facility] 1.9 mmol/l (missing) Result panel 527 Adenovirus DNA [Presence] in Nasopharynx by ERICK with non-probe detection 2024-09-27 15:00:07 [facility] Not detected (missing) (missing) Result panel 528 SARS-CoV-2 (COVID-19) RNA [Presence] in Nasopharynx by ERICK with non-probe detection 2024-09-27 15:00:07 [facility] Not detected (missing) (missing) Result panel 529 Human coronavirus 229E RNA [Presence] in Nasopharynx by ERICK with non-probe detection 2024-09-27 15:00:07 [facility] Not detected (missing) (missing) Result panel 530 Human coronavirus HKU1 RNA [Presence] in Nasopharynx by ERICK with non-probe detection 2024-09-27 15:00:07 [facility] Not detected (missing) (missing) Result panel 531 Human coronavirus NL63 RNA [Presence] in Nasopharynx by ERICK with non-probe detection 2024-09-27 15:00:07 [facility] Not detected (missing) (missing) Result panel 532 Human coronavirus OC43 RNA [Presence] in Nasopharynx by ERICK with non-probe detection 2024-09-27 15:00:07 [facility] Not detected (missing) (missing) Result panel 533 Human metapneumovirus RNA [Presence] in Nasopharynx by ERICK with non-probe detection 2024-09-27 15:00:07 [facility] Not detected (missing) (missing) Result panel 534 Rhinovirus+Enterovirus RNA [Presence] in Nasopharynx by ERICK with non-probe detection 2024-09-27 15:00:07 [facility] Not detected (missing) (missing) Result panel 535 Influenza virus A RNA [Presence] in Nasopharynx by ERICK with non-probe detection 2024-09-27 15:00:07 [facility] Not detected (missing) (missing) Result panel 536 Influenza virus B RNA [Presence] in Nasopharynx by ERICK with non-probe detection 2024-09-27 15:00:07 [facility] Not detected (missing) (missing) Result panel 537 Parainfluenza virus 1 RNA [Presence] in Nasopharynx by ERICK with non-probe detection 2024-09-27 15:00:07 [facility] Not detected (missing) (missing) Result panel 538 Parainfluenza virus 2 RNA [Presence] in Nasopharynx by ERICK with non-probe detection 2024-09-27 15:00:07 [facility] Not detected (missing) (missing) Result panel 539 Parainfluenza virus 3 RNA [Presence] in Nasopharynx by ERICK with non-probe detection 2024-09-27 15:00:07 [facility] Not detected (missing) (missing) Result panel 540 Parainfluenza virus 4 RNA [Presence] in Nasopharynx by ERICK with non-probe detection 2024-09-27 15:00:07 [facility] Not detected (missing) (missing) Result panel 541 Respiratory syncytial virus RNA [Presence] in Nasopharynx by ERICK with non-probe detec 2024-09-27 15:00:07 [facility] Not detected (missing) (missing) Result panel 542 Bordetella pertussis.pertussis toxin promoter region [Presence] in Nasopharynx by ERICK 2024-09-27 15:00:07 [facility] Not detected (missing) (missing) Result panel 543 Chlamydophila pneumoniae DNA [Presence] in Nasopharynx by ERICK with non-probe detectio 2024-09-27 15:00:07 [facility] Not detected (missing) (missing) Result panel 544 Mycoplasma pneumoniae DNA [Presence] in Nasopharynx by ERICK with non-probe detection 2024-09-27 15:00:07 [facility] Not detected (missing) (missing) Result panel 545 Adenovirus DNA [Presence] in Nasopharynx by ERICK with non-probe detection 2024-09-27 15:00:07 [facility] Not detected (missing) (missing) Result panel 546 SARS-CoV-2 (COVID-19) RNA [Presence] in Nasopharynx by ERICK with non-probe detection 2024-09-27 15:00:07 [facility] Not detected (missing) (missing) Result panel 547 Human coronavirus 229E RNA [Presence] in Nasopharynx by ERICK with non-probe detection 2024-09-27 15:00:07 [facility] Not detected (missing) (missing) Result panel 548 Human coronavirus HKU1 RNA [Presence] in Nasopharynx by ERICK with non-probe detection 2024-09-27 15:00:07 [facility] Not detected (missing) (missing) Result panel 549 Human coronavirus NL63 RNA [Presence] in Nasopharynx by ERICK with non-probe detection 2024-09-27 15:00:07 [facility] Not detected (missing) (missing) Result panel 550 Human coronavirus OC43 RNA [Presence] in Nasopharynx by ERICK with non-probe detection 2024-09-27 15:00:07 [facility] Not detected (missing) (missing) Result panel 551 Human metapneumovirus RNA [Presence] in Nasopharynx by EIRCK with non-probe detection 2024-09-27 15:00:07 [facility] Not detected (missing) (missing) Result panel 552 Rhinovirus+Enterovirus RNA [Presence] in Nasopharynx by ERICK with non-probe detection 2024-09-27 15:00:07 [facility] Not detected (missing) (missing) Result panel 553 Influenza virus A RNA [Presence] in Nasopharynx by ERICK with non-probe detection 2024-09-27 15:00:07 [facility] Not detected (missing) (missing) Result panel 554 Influenza virus B RNA [Presence] in Nasopharynx by ERICK with non-probe detection 2024-09-27 15:00:07 [facility] Not detected (missing) (missing) Result panel 555 Parainfluenza virus 1 RNA [Presence] in Nasopharynx by ERICK with non-probe detection 2024-09-27 15:00:07 [facility] Not detected (missing) (missing) Result panel 556 Parainfluenza virus 2 RNA [Presence] in Nasopharynx by ERICK with non-probe detection 2024-09-27 15:00:07 [facility] Not detected (missing) (missing) Result panel 557 Parainfluenza virus 3 RNA [Presence] in Nasopharynx by ERICK with non-probe detection 2024-09-27 15:00:07 [facility] Not detected (missing) (missing) Result panel 558 Parainfluenza virus 4 RNA [Presence] in Nasopharynx by ERICK with non-probe detection 2024-09-27 15:00:07 [facility] Not detected (missing) (missing) Result panel 559 Respiratory syncytial virus RNA [Presence] in Nasopharynx by ERICK with non-probe detec 2024-09-27 15:00:07 [facility] Not detected (missing) (missing) Result panel 560 Bordetella pertussis.pertussis toxin promoter region [Presence] in Nasopharynx by ERICK 2024-09-27 15:00:07 [facility] Not detected (missing) (missing) Result panel 561 Chlamydophila pneumoniae DNA [Presence] in Nasopharynx by ERICK with non-probe detectio 2024-09-27 15:00:07 [facility] Not detected (missing) (missing) Result panel 562 Mycoplasma pneumoniae DNA [Presence] in Nasopharynx by ERICK with non-probe detection 2024-09-27 15:00:07 [facility] Not detected (missing) (missing) Result panel 563 Adenovirus 2024-09-27 17:14 [facility] Not Detected (missing) (missing) B. parapertussis 2024-09-27 17:14 [facility] Not Detected (missing) (missing) Bordetella pertussis 2024-09-27 17:14 [facility] Not Detected (missing) (missing) Chlamydophila pneumoniae 2024-09-27 17:14 [facility] Not Detected (missing) (missing) Coronavirus 229E 2024-09-27 17:14 [facility] Not Detected (missing) (missing) Coronavirus HKU1 2024-09-27 17:14 [facility] Not Detected (missing) (missing) Coronavirus NL 63 2024-09-27 17:14 [facility] Not Detected (missing) (missing) Coronavirus OC43 2024-09-27 17:14 [facility] Not Detected (missing) (missing) Human Metapneumovirus 2024-09-27 17:14 [facility] Not Detected (missing) (missing) Human Rhinovirus/Enterovi isabel 2024-09-27 17:14 [facility] Not Detected (missing) (missing) Influenza A 2024-09-27 17:14 [facility] Not Detected (missing) (missing) Influenza B 2024-09-27 17:14 [facility] Not Detected (missing) (missing) Mycoplasma pneumoniae 2024-09-27 17:14 [facility] Not Detected (missing) (missing) Parainfluenza Virus 1 2024-09-27 17:14 [facility] Not Detected (missing) (missing) Parainfluenza Virus 2 2024-09-27 17:14 [facility] Not Detected (missing) (missing) Parainfluenza Virus 3 2024-09-27 17:14 [facility] Not Detected (missing) (missing) Parainfluenza Virus 4 2024-09-27 17:14 [facility] Not Detected (missing) (missing) Respiratory Syncytial Virus 2024-09-27 17:14 [facility] Not Detected (missing) (missing) SARS- CoV-2 2024-09-27 17:14 [facility] Not Detected (missing) The [employer] SARS-CoV-2 test is a rapid, real-time RT-PCR test intended for the qualitative detection of nucleic acid from the SARS-CoV-2 in either nasopharyngeal, nasal, or mid-turbinate swab and/or nasal wash/ aspirate specimens collected from individuals suspected of COVID-19 by their healthcare provider. Results are for the detection of SARS-CoV-2 RNA. The SARS-CoV-2 RNA is generally detectable in upper respiratory specimens during the acute phase of infection. Positive results are indicative of active infection with SARS-CoV-2; clinical correlation with patient history and other diagnostic information is necessary to determine patient infection status. Positive results do not rule out bacterial infection or co-infection with other viruses. The agent detected may not be the definite cause of disease. Negative results do not preclude SARS-CoV-2 infection and should not be used as the sole basis for treatment or other patient management decisions. Negative results must be combined with clinical observations, patient history, and epidemiological information. The [employer] SARS-CoV-2 test is only for use under the Food and Drug Administrations Emergency Use Authorization. Result panel 564 Emergency department note 2024-09-27 17:20 [facility] (missing) (missing) (missing ) Result panel 565 Basophils Absolute Auto 2024-09-28 05:36 [email or web address] 0 /ul (missing) Eosinophils Absolute Auto 2024-09-28 05:36 [email or web address] 0 /ul (missing) Eosinophils Percent Auto 2024-09-28 05:36 [email or web address] 0.0 % (missing) Basophils Percent Auto 2024-09-28 05:36 [email or web address] 0.3 % (missing) Monocytes Percent Auto 2024-09-28 05:36 [facility] 1.0 % (missing) Monocytes Absolute Auto 2024-09-28 05:36 [email or web address] 100 /ul (missing) Red Cell Distribution Width 2024-09-28 05:36 [email or web address] 14.8 % (missing) Hemoglobin 2024-09-28 05:36 [email or web address] 15.2 g/dl (missing) Platelet Count 2024-09-28 05:36 [email or web address] 272 x10 3/ul (missing) Mean Corpuscular Hemoglobin 2024-09-28 05:36 [email or web address] 30.0 pg (missing) Mean Corpuscular HGB Conc 2024-09-28 05:36 [email or web address] 34 .2 % (missing) Hematocrit 2024-09-28 05:36 [email or web address] 44.4 % (missing) Red Blood Cell Count 2024-09-28 05:36 [facility] 5.07 x10 6/ul (missing) Lymphocytes Absolute Auto 2024-09-28 05:36 [facility] 60 0 /ul (missing) Lymphocytes Percent Auto 2024-09-28 05:36 [facility] 7.0 % (missing) Neutrophils Absolute Auto 2024-09-28 05:36 [facility] 83 00 /ul (missing) Mean Corpuscular Volume 2024-09-28 05:36 [facility] 87.5 fl (missing) White Blood Cell Count 2024-09-28 05:36 [facility] 9.1 x10 3/ul (missing) Neutrophils Percent Auto 2024-09-28 05:36 [facility] 91. 7 % (missing) Result panel 566 INR 2024-09-28 05:38 [facility] 2.8 (missing ) (missing) Prothrombin Time 2024-09-28 05:38 [facility] 31.0 s econds (missing) Result panel 567 Creatinine 2024-09-28 05:42 [facility] 1.50 mg/dl (missing) Chloride 2024-09-28 05:42 [facility] 106 mmol/l (missing) Sodium 2024-09-28 05:42 [facility] 138 mmol/l (missing) Glucose 2024-09-28 05:42 [facility] 169 mg/dl (missing) Carbon Dioxide 2024-09-28 05:42 [facility] 18 mmo l/l (missing) BUN Creatinine Ratio 2024-09-28 05:42 [facility] 20.0 (missing) (missing) Blood Urea Nitrogen 2024-09-28 05:42 [facility] 30 mg/dl (missing) Potassium 2024-09-28 05:42 [facility] 4.5 mmol/l (missing) Estimated Glomerular Filt Rate 2024-09-28 05:42 [facility] 45 ml/min Reported eGFR is based the CKD-EPI 2020 equation that does not use a race coefficient. An eGFR below 60 mL/min/1.73m2 suggests that some kidney damage has occurred, and indicative of chronic kidney disease if persisting greater than 3 months. An eGFR less than 15 is indicative of kidney failure. Calcium 2024-09-28 05:42 [facility] 8.9 mg/dl (missing) Result panel 568 Blood Culture 2024-09-28 11:01 [facility] (missing) (mis sing) (missing) Blood Culture 2024-09-28 11:01 [facility] NO GROWT H AFTER 24 HOURS (missing) (missing) Result panel 569 White blood cell count 2024-09-29 07:10:07 [facility] 1 9.0 X10^3/uL (missing) Result panel 570 Automated neutrophil % 2024-09-29 07:10:07 [facility] 9 2.0 % (missing) Result panel 571 Automated lymphocyte % 2024-09-29 07:10:07 [facility] 3 .1 % (missing) Result panel 572 Automated monocyte % 2024-09-29 07:10:07 [facility] 4.8 % (missing) Result panel 573 Automated eosinophil % 2024-09-29 07:10:07 [facility] 0 .0 % (missing) Result panel 574 Automated basophil % 2024-09-29 07:10:07 [facility] 0.1 % (missing) Result panel 575 Absolute neutrophil count 2024-09-29 07:10:07 [facility] l [address] /uL (missing) Result panel 576 Absolute lymphocyte count 2024-09-29 07:10:07 [facility] l 600 /uL (missing) Result panel 577 Automated blood monocyte count 2024-09-29 07:10:07 [facility] spital 900 /uL (missing) Result panel 578 [facility] eosin[facility] 2024-09-29 [facility] Result panel 579 Automated basophil count 2024-09-29 07:10:07 [facility] 0 /uL (missing) Result panel 580 Red blood cell count 2024-09-29 07:10:07 [facility] 4.8 8 X10^6/uL (missing) Result panel 581 Serum prothrombin time 2024-09-29 07:10:07 [facility] 3 5.4 SECONDS (missing) Result panel 582 INR in Platelet poor plasma by Coagulation assay 2024-09-29 07:10:07 [facility] 3.2 (missing) (miss ing) Result panel 583 Sodium [Moles/volume] in Serum or Plasma 2024-09-29 07:10:07 [facility] 136 mmol/L ([facility]) Result panel 584 White blood cell count 2024-09-29 07:10:07 [facility] 1 9.0 X10^3/uL (missing) Result panel 585 Red blood cell count 2024-09-29 07:10:07 [facility] 4.8 8 X10^6/uL (missing) Result panel 586 Hemoglobin 2024-09-29 07:10:07 [facility] 14.4 g/d L (missing) Result panel 587 Hematocrit 2024-09-29 07:10:07 [facility] 42.7 % (missing) Result panel 588 MCV (mean corpuscular volume ) determination 2024-09-29 07:10:07 [facility] 87.5 fL (mis sing) Result panel 589 Mean corpuscular hemoglobin (MCH) determination 2024-09-29 07:10:07 [facility] 29.6 PG (missing) Result panel 590 Mean corpuscular hemoglobin concentration (MCHC) determination 2024-09-29 07:10:07 [facility] 33.8 % (mis sing) Result panel 591 Red cell distribution width determination 2024-09-29 07:10:07 [facility] 14.7 % (mis sing) Result panel 592 Platelet count 2024-09-29 07:10:07 [facility] 267 X10^3/uL (missing) Result panel 593 Potassium [Moles/volume] in Serum or Plasma 2024-09-29 07:10:07 [facility] 4.3 mmol/L ([facility]) Result panel 594 Automated neutrophil % 2024-09-29 07:10:07 [facility] 9 2.0 % (missing) Result panel 595 Automated lymphocyte % 2024-09-29 07:10:07 [facility] 3 .1 % (missing) Result panel 596 Automated monocyte % 2024-09-29 07:10:07 [facility] 4.8 % (missing) Result panel 597 Automated eosinophil % 2024-09-29 07:10:07 [facility] 0 .0 % (missing) Result panel 598 Automated basophil % 2024-09-29 07:10:07 [facility] 0.1 % (missing) Result panel 599 Absolute neutrophil count 2024-09-29 07:10:07 [facility] l 67[address] /uL (missing) Result panel 600 Absolute lymphocyte count 2024-09-29 07:10:07 [facility] l 600 /uL (missing) Result panel 601 Automated blood monocyte count 2024-09-29 07:10:07 [facility] spital 900 /uL (missing) Result panel 602 Automated eosinophil count 2024-09-29 [facility] Result panel 603 Automated basophil count 2024-09-29 07:10:07 [facility] 0 /uL (missing) Result panel 604 Chloride [Moles/volume] in Serum or Plasma 2024-09-29 07:10:07 [facility] 104 mmol/L ([facility]) Result panel 605 Serum prothrombin time 2024-09-29 07:10:07 [facility] 3 5.4 SECONDS (missing) Result panel 606 INR in Platelet poor plasma by Coagulation assay 2024-09-29 07:10:07 [facility] 3.2 (missing) (miss ing) Result panel 607 Sodium [Moles/volume] in Serum or Plasma 2024-09-29 07:10:07 [facility] 136 mmol/L ([facility]) Result panel 608 Potassium [Moles/volume] in Serum or Plasma 2024-09-29 07:10:07 [facility] 4.3 mmol/L ([facility]) Result panel 609 Chloride [Moles/volume] in Serum or Plasma 2024-09-29 07:10:07 [facility] 104 mmol/L ([facility]) Result panel 610 Carbon dioxide, total [Moles/volume] in Serum or Plasma 2024-09-29 07:10:07 [facility] 19 mmol/L (miss ing) Result panel 611 Urea nitrogen [Mass/volume] in Serum or Plasma 2024-09-29 07:10:07 [facility] 47 mg/dL ([facility]) Result panel 612 Creatinine [Mass/volume] in Serum or Plasma 2024-09-29 07:10:07 [facility] 1.51 mg/dL ([facility]) Result panel 613 Glomerular filtration rate (GFR) estimation 2024-09-29 07:10:07 [facility] 45 mL/min ( missing) Result panel 614 BUN/creatinine ratio 2024-09-29 07:10:07 [facility] 31. 1 (missing) (missing) Result panel 615 Carbon dioxide, total [Moles/volume] in Serum or Plasma 2024-09-29 07:10:07 [facility] 19 mmol/L (miss ing) Result panel 616 Glucose [Mass/volume] in Serum or Plasma 2024-09-29 07:10:07 [facility] 153 mg/dL ( issing) Result panel 617 Calcium [Mass/volume] in Serum or Plasma 2024-09-29 07:10:07 [facility] Result panel 618 Urea nitrogen [Mass/volume] in Serum or Plasma 2024-09-29 07:10:07 [facility] 47 mg/dL ([facility]) Result panel 619 Creatinine [Mass/volume] in Serum or Plasma 2024-09-29 07:10:07 [facility] 1.51 mg/dL ([facility]) Result panel 620 Glomerular filtration rate (GFR) estimation 2024-09-29 07:10:07 [facility] 45 mL/min ( missing) Result panel 621 BUN/creatinine ratio 2024-09-29 07:10:07 [facility] 31. 1 (missing) (missing) Result panel 622 Hemoglobin 2024-09-29 07:10:07 [facility] 14.4 g/d L (missing) Result panel 623 Glucose [Mass/volume] in Serum or Plasma 2024-09-29 07:10:07 [facility] Result panel 624 Calcium [Mass/volume] in Serum or Plasma 2024-09-29 07:10:07 [facility] 9.1 mg/dL ([facility]) Result panel 625 Hematocrit 2024-09-29 07:10:07 [facility] 42.7 % (missing) Result panel 626 MCV (mean corpuscular volume ) determination 2024-09-29 07:10:07 [facility] 87.5 fL (mis sing) Result panel 627 Mean corpuscular hemoglobin (MCH) determination 2024-09-29 07:10:07 [facility] 29.6 PG (missing) Result panel 628 Mean corpuscular hemoglobin concentration (MCHC) determination 2024-09-29 07:10:07 [facility] 33.8 % (mis sing) Result panel 629 Red cell distribution width determination 2024-09-29 07:10:07 [facility] 14.7 % (mis sing) Result panel 630 Platelet count 2024-09-29 07:10:07 [facility] 267 X10^3/uL (missing) Result panel 631 Basophils Absolute Auto 2024-09-29 07:18 [email or web address] 0 /ul (missing) Eosinophils Absolute Auto 2024-09-29 07:18 [email or web address] 0 /ul (missing) Eosinophils Percent Auto 2024-09-29 07:18 [email or web address] 0.0 % (missing) Basophils Percent Auto 2024-09-29 07:18 [email or web address] 0.1 % (missing) Hemoglobin 2024-09-29 07:18 [email or web address] 14.4 g/dl (missing) Red Cell Distribution Width 2024-09-29 07:18 [email or web address] 14.7 % (missing) Neutrophils Absolute Auto 2024-09-29 07: [email or web address] 43161 /ul (missing) White Blood Cell Count 2024-09-29 07:18 [email or web address] 19.0 x10 3/ul Delta: 9. 1 on 09/28/24-0510 Platelet Count 2024-09-29 07:18 [facility] 267 x10 3/ul (missing) Mean Corpuscular Hemoglobin 2024-09-29 07:18 [email or web address] 29.6 pg (missing) Lymphocytes Percent Auto 2024-09-29 07:18 [email or web address] 3.1 % (missing) Mean Corpuscular HGB Conc 2024-09-29 07:18 [email or web address] 33.8 % (missing) Monocytes Percent Auto 2024-09-29 07:18 [email or web address] 4.8 % (missing) Red Blood Cell Count 2024-09-29 07: [email or web address] 4.88 x10 6/ul (missing) Hematocrit 2024-09-29 07:18 [email or web address] 42.7 % (missing) Lymphocytes Absolute Auto 2024-09-29 07:18 [email or web address] 600 /ul (missing) Mean Corpuscular Volume 2024-09-29 07:18 [email or web address] 87.5 fl (missing) Monocytes Absolute Auto 2024-09-29 07:18 [facility] 900 /ul (missing) Neutrophils Percent Auto 2024-09-29 07:18 [facility] 92.0 % (missing) Result panel 632 INR 2024-09-29 07:23 [facility] 3.2 (missing ) (missing) Prothrombin Time 2024-09-29 07:23 [facility] 35.4 s econds (missing) Result panel 633 Creatinine 2024-09-29 07:29 [facility] 1.51 mg/dl (missing) Chloride 2024-09-29 07:29 [facility] 104 mmol/l (missing) Sodium 2024-09-29 07:29 [facility] 136 mmol/l (missing) Glucose 2024-09-29 07: [facility] 153 mg/dl (missing) Carbon Dioxide 2024-09-29 07:29 [facility] 19 mmo l/l (missing) BUN Creatinine Ratio 2024-09-29 07:29 [facility] 31.1 (missing) (missing) Potassium 2024-09-29 07:29 [facility] 4.3 mmol/l (missing) Estimated Glomerular Filt Rate 2024-09-29 07:29 [facility] 45 ml/min Reported eGFR is based the CKD-EPI 2020 equation that does not use a race coefficient. An eGFR below 60 mL/min/1.73m2 suggests that some kidney damage has occurred, and indicative of chronic kidney disease if persisting greater than 3 months. An eGFR less than 15 is indicative of kidney failure. Blood Urea Nitrogen 2024-09-29 07:29 [facility] 47 mg/dl (missing) Calcium 2024-09-29 07:29 [facility] 9.1 mg/dl (missing) Result panel 634 Blood Culture 2024-09-29 11:01 [facility] (missing) (mis sing) (missing) Blood Culture 2024-09-29 11:01 [facility] NO GROWT H AFTER 48 HOURS (missing) (missing) Result panel 635 Blood Culture 2024-09-30 11:01 [facility] (missing) (mis sing) (missing) Blood Culture 2024-09-30 11:01 [facility] NO GROWT H AFTER 72 HOURS (missing) (missing) Result panel 636 Blood Culture 2024-10-01 11:01 [email or web address] ([facility] (mis sing) (missing) Blood Culture 2024-10-01 11:01 [facility] NO GROWT H AFTER 4 DAYS (missing) (missing) Result panel 637 Blood Culture 2024-10-02 11:01 [facility] (missing) (mis sing) (missing) Blood Culture 2024-10-02 11:01 [facility] NO GROWT H AFTER 5 DAYS (missing) (missing) Result panel 638 Blood Culture 2024-10-02 11:02 [email or web address] (missing) (mis sing) (missing) Blood Culture 2024-10-02 11:02 [facility] NO GROWT H AFTER 5 DAYS (missing) (missing) Result panel 639 [facility] BASE EXCESS 2024-11-14 18:00 [facility] -3.5 mmol/l (missing) NUCLEATED RED BLOOD CELLS AUTO 2024-11-14 18:00 [facility] 0.0 /100wbc (missing) BASOPHILS # (AUTO) 2024-11-14 18:00 [facility] 0.0 10 3/ul (missing) NRBC ABSOLUTE COUNT (AUTO) 2024-11-14 18:00 [facility] 0.00 x10 3/ul (missing) EOSINOPHILS # (AUTO) 2024-11-14 18:00 [facility] 0.1 10 3/ul (missing) PROCALCITONIN 2024-11-14 18:00 [facility] 0.16 ng/ml PCT Concentration (ng/mL) Children >72hrs old and Adults Interpretation ====== ======= <0.5 Low risk of severe sepsis and/or septic shock >2.0 High risk of severe sepsis and/or septic shock Concentrations under 0.5 ng/mL do not exclude local infections or systemic infections in their initial stages (e.g. under six hours from onset of illness). PCT concentrations between 0.5 and 2.0 ng/mL should be interpreted with consideration of the patient's history. In this range, it is recommended to retest PCT within 6 to 24hours. LYMPHOCYTES # (AUTO) 2024-11-14 18:00 [facility] 1.1 10 3/ul (missing) ALBUMIN/GLOBULIN RATIO 2024-11-14 18:00 [facility] 1.2 (missing) (missing) CREATININE 2024-11-14 18:00 [facility] 1.4 mg/dl As of August 2022 testing method has changed, this may include reference ranges. MONOCYTES # (AUTO) 2024-11-14 18:00 [facility] 1.5 10 3/ul (missing) BILIRUBIN,TOTAL 2024-11-14 18:00 [facility] 1.9 mg/dl As of August 2022 testing method has changed, this may include reference ranges. ANION GAP 2024-11-14 18:00 [facility] 10.0 (missing) (missing) NEUTROPHILS # (AUTO) 2024-11-14 18:00 [facility] 10.3 10 3/ul (missing) MEAN PLATELET VOLUME 2024-11-14 18:00 [facility] 10.7 fl (missing) ALKALINE PHOSPHATASE 2024-11-14 18:00 [facility] 100 iu/l As of August 2022 testing method has changed, this may include reference ranges. CHLORIDE 2024-11-14 18:00 [facility] 103 mmol/l As of August 2022 testing method has changed, this may include reference ranges. WHITE BLOOD COUNT 2024-11-14 18:00 [facility] 13.1 x10 3/ul (missing) SODIUM 2024-11-14 18:00 [facility] 137 mmol/l (missing) HGB - HEMOGLOBIN 2024-11-14 18:00 [facility] 14.9 g/dl (missing) GLUCOSE 2024-11-14 18:00 [facility] 147 mg/dl As of August 2022 testing method has changed, this may include reference ranges. RED CELL DISTRIBUTION WIDTH 2024-11-14 18:00 [facility] 16.0 % (missing) ALT ALANINE AMINOTRANSFERASE 2024-11-14 18:00 [facility] 18 iu/l As of August 2022 testing method has changed, this may include reference ranges. PLT - PLATELET COUNT 2024-11-14 18:00 [facility] 193 10 3/ul (missing) [facility]BG HCO3 2024-11-14 18:00 [facility] 20.4 mmol/l (missing) [facility] TOTAL CO2 2024-11-14 18:00 [facility] 21.3 mmol/l (missing) AST ASPARTATE AMINOTRANSFERASE 2024-11-14 18:00 [facility] 22 iu/l As of August 2022 testing method has changed, this may include reference ranges. BUN - BLOOD UREA NITROGEN 2024-11-14 18:00 [facility] 23 mg/dl As of August 2022 testing method has changed, this may include reference ranges. CARBON DIOXIDE - CO2 2024-11-14 18:00 [facility] 24 mmol/l As of August 2022 testing method has changed, this may include reference ranges. [facility] PO2 2024-11-14 18:00 [facility] 27.2 mmhg (missing) [facility] PCO2 2024-11-14 18:00 [facility] 28.0 mmhg (missing) MEAN CORPUSCULAR HEMOGLOBIN 2024-11-14 18:00 [facility] 28.9 pg (missing) GLOBULIN 2024-11-14 18:00 [facility] 3.3 g/dl (missing) POTASSIUM 2024-11-14 18:00 [facility] 3.6 mmol/l As of August 2022 testing method has changed, this may include reference ranges. ALBUMIN 2024-11-14 18:00 [facility] 3.8 g/dl As of August 2022 testing method has changed, this may include reference ranges. TROPONIN I HIGH SENSITIVITY 2024-11-14 18:00 [facility] 30.0 ng/l Critical result TNIHS 30.0 pg/mL called to and read back by ZEV RN/ED at 14-Nov-2024 19:09 by [place]. A HIGH SENSITIVITY TROPONIN result of >= 14.9 ng/L for females is considered POSITIVE. A HIGH SENSITIVITY TROPONIN result of >= 19.8 ng/L for males is considered POSITIVE. A HIGH SENSITIVITY TROPONIN result of >= 17.9 ng/L for unspecified is considered POSITIVE. MEAN CORPUSCULAR HGB CONC 2024-11-14 18:00 [facility] 32.8 g/dl (missing) [facility] OXYGEN SATURATION 2024-11-14 18: [facility] 35.0 % (missing) HCT - HEMATOCRIT 2024-11-14 18:00 [facility] 45.4 % (missing) GFR - MDRD 2024-11-14 18:00 [facility] 48 (missing) The IDMS-traceable MDRD Study Equation has been validated extensively in and populations between the ages of 18 and 70 with impaired kidney function (eGFR < 60 mL/min/1.73m2) and has shown good performance for patients with all common causes of kidney disease. Although this equation has not been validated for patients older than 70, an MDRD-derived eGFR may still be a useful tool for providers caring for patients older than 70. References: http://www.nkdep.ni h.gov/lab-evaluatio n/gfr/creatinine-st and ardization, last updated April 2011. RED BLOOD COUNT 2024-11-14 18:00 [facility] 5.15 10 6/ul (missing) TOTAL PROTEIN 2024-11-14 18:00 [facility] 7.1 g/dl As of August 2022 testing method has changed, this may include reference ranges. [facility] PH 2024-11-14 18:00 [facility] 7.466 (missing) (missing) CALCIUM 2024-11-14 18:00 [facility] 8.7 mg/dl As of August 2022 testing method has changed, this may include reference ranges. BNP - B-NATRIURETIC PEPTIDE 2024-11-14 18:00 [facility] 804 pg/ml (missing) MEAN CORPUSCULAR VOLUME 2024-11-14 18:00 [facility] 88.2 fl (missing) Result panel 640 SARS-CoV-2 -RESP PCR PANEL 2024-11-14 19:35 [facility] NOT DETECTED (missing) A negative test result for this test indicates that SARS-CoV-2 RNA was not present in the specimen above the limit of detection. Testing performed on the [facility] RP2.1 Panel, a multiplexed nucleic acid repiratory panel. Negative results do not preclude infection with SARS-CoV-2 virus and should not be the sole basis of a patient management decision. In some patients repeat testing at various time points may be necessary for virus detection. False-negative results may arise from improper sample collection, degradation of viral RNA during shipping or storage, the presence of PCR inhibitors, and/or mutation in the SARS-CoV-2 virus. INFLUENZA A- RESP PCR PANEL 2024-11-14 19:35 [facility] NOT DETECTED (missing) Influenza A including subtypes H1, H3, and H1-2009 not detected by the [facility] RP2.1 Panel, a multiplexed nucleic acid test intended for the simultaneous qualitative detection and differentiation of nucleic acids from multiple viral and bacterial respiratory organisms. B. PARAPERTUSSIS- RESP PCR VIZCARRA 2024-11-14 19:35 [email or web address] NOT DETECTED (missing) Negative results for this organism do not preclude infection with this organism and may require additional laboratory testing (e.g., bacterial and viral culture, immunofluorescence, and radiography) when evaluating a patient with possible respiratory tract infection. B. PERTUSSIS- RESP PCR PANEL 2024-11-14 19:35 [email or web address] NOT DETECTED (missing) Negative results for this organism do not preclude infection with this organism and may require additional laboratory testing (e.g., bacterial and viral culture, immunofluorescence, and radiography) when evaluating a patient with possible respiratory tract infection. C. PNEUMONIAE- RESP PCR PANEL 2024-11-14 19:35 [email or web address] NOT DETECTED (missing) Negative results for this organism do not preclude infection with this organism and may require additional laboratory testing (e.g., bacterial and viral culture, immunofluorescence, and radiography) when evaluating a patient with possible respiratory tract infection. M. PNEUMONIAE- RESP PCR PANEL 2024-11-14 19:35 [email or web address] NOT DETECTED (missing) Negative results for this organism do not preclude infection with this organism and may require additional laboratory testing (e.g., bacterial and viral culture, immunofluorescence, and radiography) when evaluating a patient with possible respiratory tract infection. CORONAVIRUS 229E-RESP PCR 2024-11-14 19:35 [facility] NOT DETECTED (missing) Negative results in the setting ofa respiratory illness may be due to infection with pathogens not detected by this test, or lower respiratory tract infection that may not be detected by nasopharyngeal specimen. CORONAVIRUS HKU1-RESP PCR 2024-11-14 19:35 [facility] NOT DETECTED (missing) Negative results in the setting ofa respiratory illness may be due to infection with pathogens not detected by this test, or lower respiratory tract infection that may not be detected by nasopharyngeal specimen. CORONAVIRUS MR82-CEIW PCR 2024-11-14 19:35 [facility] NOT DETECTED (missing) Negative results in the setting ofa respiratory illness may be due to infection with pathogens not detected by this test, or lower respiratory tract infection that may not be detected by nasopharyngeal specimen. CORONAVIRUS YE31-RLDN PCR 2024-11-14 19:35 [facility] NOT DETECTED (missing) Negative results in the setting ofa respiratory illness may be due to infection with pathogens not detected by this test, or lower respiratory tract infection that may not be detected by nasopharyngeal specimen. HUMAN METAPNEUMOVIRUS 2024-11-14 19:35 [facility] NOT DETECTED (missing) Negative results in the setting ofa respiratory illness may be due to infection with pathogens not detected by this test, or lower respiratory tract infection that may not be detected by nasopharyngeal specimen. INFLUENZA B - RESP PCR PANEL 2024-11-14 19:35 [facility] NOT DETECTED (missing) Negative results in the setting ofa respiratory illness may be due to infection with pathogens not detected by this test, or lower respiratory tract infection that may not be detected by nasopharyngeal specimen. PARAINFLUENZA VIRUS 1 2024-11-14 19:35 [facility] NOT DETECTED (missing) Negative results in the setting ofa respiratory illness may be due to infection with pathogens not detected by this test, or lower respiratory tract infection that may not be detected by nasopharyngeal specimen. PARAINFLUENZA VIRUS 2 2024-11-14 19:35 [facility] NOT DETECTED (missing) Negative results in the setting ofa respiratory illness may be due to infection with pathogens not detected by this test, or lower respiratory tract infection that may not be detected by nasopharyngeal specimen. PARAINFLUENZA VIRUS 3 2024-11-14 19:35 [facility] NOT DETECTED (missing) Negative results in the setting ofa respiratory illness may be due to infection with pathogens not detected by this test, or lower respiratory tract infection that may not be detected by nasopharyngeal specimen. PARAINFLUENZA VIRUS 4 2024-11-14 19:35 [facility] NOT DETECTED (missing) Negative results in the setting ofa respiratory illness may be due to infection with pathogens not detected by this test, or lower respiratory tract infection that may not be detected by nasopharyngeal specimen. RHINOVIRUS/ENTEROVI ISABEL 2024-11-14 19:35 [facility] NOT DETECTED (missing) Negative results in the setting ofa respiratory illness may be due to infection with pathogens not detected by this test, or lower respiratory tract infection that may not be detected by nasopharyngeal specimen. RSV- RESP PCR PANEL 2024-11-14 19:35 [facility] NOT DETECTED (missing) Negative results in the setting ofa respiratory illness may be due to infection with pathogens not detected by this test, or lower respiratory tract infection that may not be detected by nasopharyngeal specimen. ADENOVIRUS - RESP PCR PANEL 2024-11-14 19:35 [facility] NOT DETECTED (missing) YES Negative results in the setting ofa respiratory illness may be due to infection with pathogens not detected by this test, or lower respiratory tract infection that may not be detected by nasopharyngeal specimen. Result panel 641 TROPONIN I HIGH SENSITIVITY 2024-11-14 20:33 [facility] 35.4 ng/l Critical result TNIHS 35.4 pg/mL called to and read back by KENNEDY/HÉCTOR ELISE at 14-Nov-2024 21:07 by bryant. A HIGH SENSITIVITY TROPONIN result of >= 14.9 ng/L for females is considered POSITIVE. A HIGH SENSITIVITY TROPONIN result of >= 19.8 ng/L for males is considered POSITIVE. A HIGH SENSITIVITY TROPONIN result of >= 17.9 ng/L for unspecified is considered POSITIVE. Result panel 642 MRSA PCR,CCU ADMIT 2024-11-14 21:25 [email or web address] NEGATIVE (missing) (missing) Result panel 643 NUCLEATED RED BLOOD CELLS AUTO 2024-11-15 04:59 [email or web address] 0.0 /100wbc (missing) BASOPHILS # (AUTO) 2024-11-15 04:59 [email or web address] 0.0 10 3/ul (missing) EOSINOPHILS # (AUTO) 2024-11-15 04:59 [email or web address] 0.0 10 3/ul (missing) NRBC ABSOLUTE COUNT (AUTO) 2024-11-15 04:59 [facility] 0.00 x10 3/ul (missing) MONOCYTES # (AUTO) 2024-11-15 04:59 [facility] 0.2 10 3/ul (missing) LYMPHOCYTES # (AUTO) 2024-11-15 04:59 [facility] 0.7 10 3/ul (missing) CREATININE 2024-11-15 04:59 [facility] 1.2 mg/dl As of August 2022 testing method has changed, this may include reference ranges. MEAN PLATELET VOLUME 2024-11-15 04:59 [facility] 10.9 fl (missing) CHLORIDE 2024-11-15 04:59 [facility] 106 mmol/l As of August 2022 testing method has changed, this may include reference ranges. HGB - HEMOGLOBIN 2024-11-15 04:59 [facility] 13.8 g /dl (missing) SODIUM 2024-11-15 04:59 [facility] 137 mmol/l (missing) RED CELL DISTRIBUTION WIDTH 2024-11-15 04:59 [facility] 15.7 % (mi ssing) PLT - PLATELET COUNT 2024-11-15 04:59 [facility] 170 10 3/ul (missing) GLUCOSE 2024-11-15 04:59 [facility] 181 mg/dl As of August 2022 testing method has changed, this may include reference ranges. CARBON DIOXIDE - CO2 2024-11-15 04:59 [facility] 22 mmol/l As of Aug testing method has changed, this may include reference ranges. BUN - BLOOD UREA NITROGEN 2024-11-15 04:59 [facility] 24 mg/dl As of Aug testing method has changed, this may include reference ranges. MEAN CORPUSCULAR HEMOGLOBIN 2024-11-15 04:59 [facility] 29.4 pg (missing) INR 2024-11-15 04:59 [facility] 3.0 (missing ) Oral Anticoagulant Indication INR range Venous Thrombosis, P.E. 2.0 - 3.0 Mechanical Valve 2.5 - 3.5 PT - PROTHROMBIN TIME 2024-11-15 04:59 [facility] 33.0 khadra OTERO N MEAN CORPUSCULAR HGB CONC 2024-11-15 04:59 [facility] 33.4 g/dl (missing) POTASSIUM 2024-11-15 04:59 [facility] 4.0 mmol/l As of August 2022 testing method has changed, this may include reference ranges. RED BLOOD COUNT 2024-11-15 04:59 [facility] 4.70 10 6/ul (missing) HCT - HEMATOCRIT 2024-11-15 04:59 [facility] 41.3 % (missing) GFR - MDRD 2024-11-15 04:59 [facility] 57 (jaylon g) The IDMS-traceable MDRD Study Equation has been validated extensively in and populations between the ages of 18 and 70 with impaired kidney function (eGFR < 60 mL/min/1.73m2) and has shown good performance for patients with all common causes of kidney disease. Although this equation has not been validated for patients older than 70, an MDRD-derived eGFR may still be a useful tool for providers caring for patients older than 70. References: http://www.nkdep.nih .gov/lab-evaluation/ gfr/creatinine-stand ardization, last updated April 2011. NEUTROPHILS # (AUTO) 2024-11-15 04:59 [facility] 8.3 10 3/ul (missing) CALCIUM 2024-11-15 04:59 [facility] 8.5 mg/dl As of August 2022 testing method has changed, this may include reference ranges. MEAN CORPUSCULAR VOLUME 2024-11-15 04:59 [facility] 87.9 fl (missing) ANION GAP 2024-11-15 04:59 [facility] 9.0 (missing ) (missing) WHITE BLOOD COUNT 2024-11-15 04:59 [facility] 9.2 x10 3/ul (missing) Result panel 644 NUCLEATED RED BLOOD CELLS AUTO 2024-11-16 04:26 [facility] 0.0 /100wbc (missing) BASOPHILS # (AUTO) 2024-11-16 04:26 [facility] 0.0 10 3/ul (missing) EOSINOPHILS # (AUTO) 2024-11-16 04:26 [facility] 0.0 10 3/ul (missing) NRBC ABSOLUTE COUNT (AUTO) 2024-11-16 04:26 [facility] 0.00 x10 3/ul (missing) LYMPHOCYTES # (AUTO) 2024-11-16 04:26 [facility] 0.7 10 3/ul (missing) MONOCYTES # (AUTO) 2024-11-16 04:[address] [facility] 0.8 10 3/ul (missing) CREATININE 2024-11-16 04: [facility] 1.2 mg/dl As of August 2022 testing method has changed, this may include reference ranges. CHLORIDE 2024-11-16 04: [facility] 106 mmol/l As of August 2022 testing method has changed, this may include reference ranges. MEAN PLATELET VOLUME 2024-11-16 04:26 [facility] 11.0 fl (missing) HGB - HEMOGLOBIN 2024-11-16 04: [facility] 12.7 g /dl (missing) SODIUM 2024-11-16 04:26 [facility] 138 mmol/l (missing) NEUTROPHILS # (AUTO) 2024-11-16 04:26 [facility] 14.6 10 3/ul (missing) RED CELL DISTRIBUTION WIDTH 2024-11-16 04:26 [facility] 15.7 % (mi ssing) WHITE BLOOD COUNT 2024-11-16 04:26 [facility] 16.2 x10 3/ul (missing) GLUCOSE 2024-11-16 04: [facility] 178 mg/dl As of August 2022 testing method has changed, this may include reference ranges. PLT - PLATELET COUNT 2024-11-16 04:26 [facility] 181 10 3/ul (missing) CARBON DIOXIDE - CO2 2024-11-16 04:26 [facility] 25 mmol/l As of Aug testing method has changed, this may include reference ranges. MEAN CORPUSCULAR HEMOGLOBIN 2024-11-16 04:26 [facility] 28.9 pg (missing) INR 2024-11-16 04: [facility] 3.7 (missing ) Oral Anticoagulant Indication INR range Venous Thrombosis, P.E. 2.0 - 3.0 Mechanical Valve 2.5 - 3.5 MEAN CORPUSCULAR HGB CONC 2024-11-16 04: [facility] 32.2 g/dl (missing) BUN - BLOOD UREA NITROGEN 2024-11-16 04: [facility] 34 mg/dl As of Aug testing method has changed, this may include reference ranges. HCT - HEMATOCRIT 2024-11-16 04: [facility] 39.5 % (missing) POTASSIUM 2024-11-16 04: [facility] 4.2 mmol/l As of August 2022 testing method has changed, this may include reference ranges. RED BLOOD COUNT 2024-11-16 04: [facility] 4.40 10 6/ul (missing) PT - PROTHROMBIN TIME 2024-11-16 04: [facility] 40.3 secs Y WARFARI N GFR - MDRD 2024-11-16 04: [facility] 57 (missin g) The IDMS-traceable MDRD Study Equation has been validated extensively in and populations between the ages of 18 and 70 with impaired kidney function (eGFR < 60 mL/min/1.73m2) and has shown good performance for patients with all common causes of kidney disease. Although this equation has not been validated for patients older than 70, an MDRD-derived eGFR may still be a useful tool for providers caring for patients older than 70. References: http://www.nkdep.nih .gov/lab-evaluation/ gfr/creatinine-stand ardization, last updated April 2011. ANION GAP 2024-11-16: [facility] 7.0 (missing ) (missing) CALCIUM 2024-11-16: [facility] 8.6 mg/dl As of August 2022 testing method has changed, this may include reference ranges. MEAN CORPUSCULAR VOLUME 2024-11-16: [facility] 89.8 fl (missing) Result panel 645 CREATININE 2024-11-17 04: [facility] 1.3 mg/dl As of August 2022 testing method has changed, this may include reference ranges. CHLORIDE 2024-11-17 04: [facility] 104 mmol/l As of August 2022 testing method has changed, this may include reference ranges. GLUCOSE 2024-11-17: [facility] 132 mg/dl As of August 2022 testing method has changed, this may include reference ranges. SODIUM 2024-11-17 04: [facility] 138 mmol/l (missing) CARBON DIOXIDE - CO2 2024-11-17 04:28 [facility] 28 mmol/l As of Aug testing method has changed, this may include reference ranges. POTASSIUM 2024-11-17: [facility] 3.8 mmol/l As of August 2022 testing method has changed, this may include reference ranges. BUN - BLOOD UREA NITROGEN 2024-11-17: [facility] 37 mg/dl As of Aug testing method has changed, this may include reference ranges. GFR - MDRD 2024-11-17: [facility] 52 (jaylon alfaro) The IDMS-traceable MDRD Study Equation has been validated extensively in and populations between the ages of 18 and 70 with impaired kidney function (eGFR < 60 mL/min/1.73m2) and has shown good performance for patients with all common causes of kidney disease. Although this equation has not been validated for patients older than 70, an MDRD-derived eGFR may still be a useful tool for providers caring for patients older than 70. References: http://www.nkdep.nih .gov/lab-evaluation/ gfr/creatinine-stand ardization, last updated April 2011. ANION GAP 2024-11-17: [facility] 6.0 (missing ) (missing) CALCIUM 2024-11-17: [facility] 8.5 mg/dl As of August 2022 testing method has changed, this may include reference ranges. Social History date description facility 2024-09-27 00:00 Tobacco smoking consumption unk nown (finding) [facility] 2024-09-27 00:00 Ex-smoker (finding) [facility] 2024-10-23 00:00 Ex-smoker (finding) [facility] Vital Signs date measurement value units 2024-09-27 00:00 BMI 23.5 kg/m2 2024-09-27 00:00 BP_diastolic 67 mmHg 2024-09-27 00:00 BP_systolic 115 mmHg 2024-09-27 00:00 heart_rate 69 /min 2024-09-27 00:00 height_metric 170.18 cm 2024-09-27 00:00 o2_saturation 93 % 2024-09-27 00:00 respiration_rate 25 /min 2024-09-27 00:00 temperature_standard 97.5 F 2024-09-27 00:00 weight_metric 68.03 kg 2024-09-29 00:00 BP_diastolic 68 mmHg 2024-09-29 00:00 BP_systolic 114 mmHg 2024-09-29 00:00 heart_rate 77 /min 2024-09-29 00:00 o2_saturation 92 % 2024-09-29 00:00 respiration_rate 19 /min 2024-09-29 00:00 temperature_standard 96.7 F 2024-10-23 00:00 BMI 23.5 kg/m2 2024-10-23 00:00 BP_diastolic 72 mmHg 2024-10-23 00:00 BP_systolic 116 mmHg 2024-10-23 00:00 heart_rate 79 /min 2024-10-23 00:00 height_metric 170.18 cm 2024-10-23 00:00 o2_saturation 72 % 2024-10-23 00:00 weight_metric 68.03 kg
--- OUTSIDE RECORDS SUMMARY | 2024-11-19 18:05 | EXTERNAL MEDICAL SUMMARY RPT | Continuity of Care Document ---
Author Organization [place] Address [address] [id number] Phone Care Team Providers Care Machine Coremaker Name Role Phone Unavailable Unavailable [email or web address] Ricki Nassar Unavailable Unavailable Allergies and Intolerances date description facility reaction severity 2024-09-27 10:35:58 [facility] (no reactio n) Severe 2024-10-23 11:12:30 [facility] (no reactio n) Severe Medications date description facility 2024-09-27 00:00 Fluticasone Propion-Salmeterol [facility] 2024-09-29 00:00 Doxycycline Hyclate [facility] 2024-09-27 00:00 Cholestyramine [facility] 2024-09-27 00:00 Cephalexin [facility] 2024-09-27 00:00 Omeprazole [facility] 2024-10-23 00:00 Albuterol Sulfate [facility] 2024-09-27 00:00 Tjqhtztpfa-Jnhipzko-Jvvnemxkpt [facility] 2024-09-27 00:00 Alprazolam [facility] 2024-09-27 00:00 Amlodipine [facility] 2024-09-29 00:00 Prednisone [facility] 2024-10-23 00:00 Cholecalciferol (Vitamin D3) [facility] 2024-09-27 00:00 Warfarin [facility] 2024-09-27 00:00 Metoprolol Tartrate [facility] Problems date description facility 2024-09-10 12:11 Hemoptysis [facility] 2024-09-10 16:35 Hemoptysis [facility] 2024-09-23 15:20 Other emphysema [facility] 2024-09-23 15:20 Hemoptysis [facility] 2024-09-27 00:00 Acute on chronic congestive hea rt failure [facility] 2024-09-27 00:00 Fibrosis of lung [facility] 2024-09-27 00:00 Acute respiratory failure with hypoxia [facility] 2024-11-14 20:45 Acute and chronic re spiratory failure, unspecified whether with hypoxia or [facility]capnia [facility]-14 22:00 Acute and chronic re spiratory failure, unspecified whether with hypoxia or hypercapnia [facility] 2024-11-14 22:02 Acute and chronic re spiratory failure, unspecified whether with hypoxia or hypercapnia [facility] 2024-11-15 06:57 Unspecified atrial fibrillation [facility] 2024-11-15 06:57 Pulmonary fibrosis, unspecified [facility] 2024-11-15 06:57 Acute and chronic re spiratory failure, unspecified whether with hypoxia or hypercapnia [facility] 2024-11-15 08:58 Unspecified atrial fibrillation [facility] 2024-11-15 08:58 Pulmonary fibrosis, [facility] 2024-11-15 08:58 Acute and chronic re spiratory failure, unspecified whether with hypoxia or hypercapnia [facility] 2024-11-17 09:19 Anxiety disorder, unspecified [employer] 2024-11-17 09:19 Essential (primary) hypertensio n [facility] 2024-11-17 09:19 Cor pulmonale (chronic) [facility] 2024-11-17 09:19 Longstanding persistent atrial fibrillation [facility] [employer] [facility] 2024-11-17 09:19 Unspecified atrial fibrillation [facility] 2024-11-17 09:19 Pulmonary fibrosis, unspecified [facility] 2024-11-17 09:19 Acute and chronic re spiratory failure, unspecified whether with hypoxia or hypercapnia [facility] 2024-11-17 09:19 Acute and chronic respiratory f ailure with hypoxia [facility] 2024-11-17 09:19 [facility]ia [facility] 2024-11-17 09:30 Anxiety disorder, unspecified [employer] 2024-11-17 09:30 Essential (primary) hypertensio n [facility] [employer] [facility] 2024-11-17 09:30 Cor pulmonale (chronic) [employer] [facility] 2024-11-17 09:30 Longstanding persistent atrial fibrillation [facility] 2024-11-17 09:30 Unspecified atrial fibrillation [facility] 2024-11-17 09:30 Pulmonary fibrosis, unspecified [facility] 2024-11-17 09:30 Acute and chronic re spiratory failure, unspecified whether with hypoxia or hypercapnia [facility] 2024-11-17 09:30 Acute and chronic respiratory f ailure with hypoxia [facility] 2024-11-17 09:30 Other dysphagia [facility] 2024-11-17 11:30 Anxiety disorder, unspecified [facility] 2024-11-17 11:30 Essential (primary) hypertensio n [facility] 2024-11-17 11:30 Cor pulmonale (chronic) [facility] 2024-11-17 11:30 Longstanding persistent atrial fibrillation [facility] 2024-11-17 11:30 Unspecified atrial fibrillation [facility] 2024-11-17 11:30 Pulmonary fibrosis, unspecified [facility] 2024-11-17 11:30 Acute and chronic re spiratory failure, unspecified whether with hypoxia or hypercapnia [facility] 2024-11-17 11:30 Acute and chronic respiratory f ailure with hypoxia [facility] 2024-11-17 11:30 Other dysphagia [facility] 2024-11-18 09:29 Anxiety disorder, unspecified [employer] [facility] 2024-11-18 09:29 Essential (primary) hypertensio n [facility] 2024-11-18 09:29 Cor pulmonale (chronic) [facility] 2024-11-18 09:29 Longstanding persistent atrial fibrillation [facility] 2024-11-18 09:29 Unspecified atrial fibrillation [facility] 2024-11-18 09:29 Pulmonary fibrosis, unspecified [facility] 2024-11-18 09:29 Acute and chronic re spiratory failure, unspecified whether with hypoxia or hypercapnia [facility] 2024-11-18 09:29 Acute and chronic respiratory f ailure with hypoxia [facility] 2024-11-18 09:29 Dyspnea, unspecified [facility] 2024-11-18 09:29 Other dysphagia [facility] 2024-11-18 09:29 Weakness [facility] Procedures date description facility 2024-09-27 00:00 Blood culture [facility] 2024-09-23 00:00 CT chest without contrast [facility] 2024-09-27 00:00 X-ray of chest, single [facility] 2024-09-10 00:00 X-ray of chest, two views [facility] 2024-09-27 00:00 Complete Doppler echocardiograp hy [facility] Results/Labs test date facility value unit notes Result panel 1 Specimen collection (procedure) (no date) [facility] (missing) (missing) (missing) Result panel 2 Specimen collection (procedure) (no date) [facility] (missing) (missing) (missing) Result panel 3 Specimen collection (procedure) (no date) [facility] (missing) (missing) (missing) Result panel 4 Specimen collection (procedure) (no date) [facility] (missing) (missing) (missing) Result panel 5 Specimen collection (procedure) (no date) [facility] (missing) (missing) (missing) Result panel 6 Specimen collection (procedure) (no date) [facility] (missing) (missing) (missing) Result panel 7 Specimen collection (procedure) (no date) [facility] (missing) (missing) (missing) Result panel 8 Specimen collection (procedure) (no date) [facility] (missing) (missing) (missing) Result panel 9 Specimen collection (procedure) (no date) [facility] (missing) (missing) (missing) Result panel 10 Specimen collection (procedure) (no date) [facility] (missing) (missing) (missing) Result panel 11 Specimen collection (procedure) (no date) [facility] (missing) (missing) (missing) Result panel 12 Specimen collection (procedure) (no date) [facility] (missing) (missing) (missing) Result panel 13 Specimen collection (procedure) (no date) [facility] (missing) (missing) (missing) Result panel 14 Specimen collection (procedure) (no date) [facility] (missing) (missing) (missing) Result panel 15 Specimen collection (procedure) (no date) [facility] (missing) (missing) (missing) Result panel 16 Specimen collection (procedure) (no date) [facility] (missing) (missing) (missing) Result panel 17 Specimen collection (procedure) (no date) [facility] (missing) (missing) (missing) Result panel 18 Specimen collection (procedure) (no date) [facility] (missing) (missing) (missing) Result panel 19 Specimen collection (procedure) (no date) [facility] (missing) (missing) (missing) Result panel 20 Specimen collection (procedure) (no date) [facility] (missing) (missing) (missing) Result panel 21 Specimen collection (procedure) (no date) [facility] (missing) (missing) (missing) Result panel 22 Specimen collection (procedure) (no date) [facility] (missing) (missing) (missing) Result panel 23 Specimen collection (procedure) (no date) [facility] (missing) (missing) (missing) Result panel 24 Specimen collection (procedure) (no date) [facility] (missing) (missing) (missing) Result panel 25 Specimen collection (procedure) (no date) [facility] (missing) (missing) (missing) Result panel 26 Specimen collection (procedure) (no date) [facility] (missing) (missing) (missing) Result panel 27 Specimen collection (procedure) (no date) [facility] (missing) (missing) (missing) Result panel 28 Specimen collection (procedure) (no date) [facility] (missing) (missing) (missing) Result panel 29 Specimen collection (procedure) (no date) [facility] (missing) (missing) (missing) Result panel 30 Specimen collection (procedure) (no date) [facility] (missing) (missing) (missing) Result panel 31 Specimen collection (procedure) (no date) [facility] (missing) (missing) (missing) Result panel 32 Specimen collection (procedure) (no date) [facility] (missing) (missing) (missing) Result panel 33 Specimen collection (procedure) (no date) [facility] (missing) (missing) (missing) Result panel 34 Specimen collection (procedure) (no date) [facility] (missing) (missing) (missing) Result panel 35 Specimen collection (procedure) (no date) [facility] (missing) (missing) (missing) Result panel 36 Specimen collection (procedure) (no date) [facility] (missing) (missing) (missing) Result panel 37 Specimen collection (procedure) (no date) [facility] (missing) (missing) (missing) Result panel 38 Specimen collection (procedure) (no date) [facility] (missing) (missing) (missing) Result panel 39 Specimen collection (procedure) (no date) [facility] (missing) (missing) (missing) Result panel 40 Specimen collection (procedure) (no date) [facility] (missing) (missing) (missing) Result panel 41 Specimen collection (procedure) (no date) [facility] (missing) (missing) (missing) Result panel 42 Specimen collection (procedure) (no date) [facility] (missing) (missing) (missing) Result panel 43 Specimen collection (procedure) (no date) [facility] (missing) (missing) (missing) Result panel 44 Specimen collection (procedure) (no date) [facility] (missing) (missing) (missing) Result panel 45 Specimen collection (procedure) (no date) [facility] (missing) (missing) (missing) Result panel 46 Specimen collection (procedure) (no date) [facility] (missing) (missing) (missing) Result panel 47 Specimen collection (procedure) (no date) [facility] (missing) (missing) (missing) Result panel 48 Specimen collection (procedure) (no date) [facility] (missing) (missing) (missing) Result panel 49 Specimen collection (procedure) (no date) [facility] (missing) (missing) (missing) Result panel 50 Specimen collection (procedure) (no date) [facility] (missing) (missing) (missing) Result panel 51 Specimen collection (procedure) (no date) [facility] (missing) (missing) (missing) Result panel 52 Specimen collection (procedure) (no date) [facility] (missing) (missing) (missing) Result panel 53 Specimen collection (procedure) (no date) [facility] (missing) (missing) (missing) Result panel 54 Specimen collection (procedure) (no date) [facility] (missing) (missing) (missing) Result panel 55 Specimen collection (procedure) (no date) [facility] (missing) (missing) (missing) Result panel 56 Specimen collection (procedure) (no date) [facility] (missing) (missing) (missing) Result panel 57 Specimen collection (procedure) (no date) [facility] (missing) (missing) (missing) Result panel 58 Specimen collection (procedure) (no date) [facility] (missing) (missing) (missing) Result panel 59 Specimen collection (procedure) (no date) [facility] (missing) (missing) (missing) Result panel 60 Specimen collection (procedure) (no date) [facility] (missing) (missing) (missing) Result panel 61 Specimen collection (procedure) (no date) [facility] (missing) (missing) (missing) Result panel 62 Specimen collection (procedure) (no date) [facility] (missing) (missing) (missing) Result panel 63 Specimen collection (procedure) (no date) [facility] (missing) (missing) (missing) Result panel 64 Specimen collection (procedure) (no date) [facility] (missing) (missing) (missing) Result panel 65 Specimen collection (procedure) (no date) [facility] (missing) (missing) (missing) Result panel 66 Specimen collection (procedure) (no date) [facility] (missing) (missing) (missing) Result panel 67 Specimen collection (procedure) (no date) [facility] (missing) (missing) (missing) Result panel 68 Specimen collection (procedure) (no date) [facility] (missing) (missing) (missing) Result panel 69 Specimen collection (procedure) (no date) [facility] (missing) (missing) (missing) Result panel 70 Specimen collection (procedure) (no date) [facility] (missing) (missing) (missing) Result panel 71 Specimen collection (procedure) (no date) [facility] (missing) (missing) (missing) Result panel 72 Specimen collection (procedure) (no date) [facility] (missing) (missing) (missing) Result panel 73 Specimen collection (procedure) (no date) [facility] (missing) (missing) (missing) Result panel 74 Specimen collection (procedure) (no date) [facility] (missing) (missing) (missing) Result panel 75 Specimen collection (procedure) (no date) [facility] (missing) (missing) (missing) Result panel 76 Specimen collection (procedure) (no date) [facility] (missing) (missing) (missing) Result panel 77 Specimen collection (procedure) (no date) [facility] (missing) (missing) (missing) Result panel 78 Specimen collection (procedure) (no date) [facility] (missing) (missing) (missing) Result panel 79 Specimen collection (procedure) (no date) [facility] (missing) (missing) (missing) Result panel 80 Specimen collection (procedure) (no date) [facility] (missing) (missing) (missing) Result panel 81 Specimen collection (procedure) (no date) [facility] (missing) (missing) (missing) Result panel 82 Specimen collection (procedure) (no date) [facility] (missing) (missing) (missing) Result panel 83 Specimen collection (procedure) (no date) [facility] (missing) (missing) (missing) Result panel 84 Specimen collection (procedure) (no date) [facility] (missing) (missing) (missing) Result panel 85 Specimen collection (procedure) (no date) [facility] (missing) (missing) (missing) Result panel 86 Specimen collection (procedure) (no date) [facility] (missing) (missing) (missing) Result panel 87 Specimen collection (procedure) (no date) [facility] (missing) (missing) (missing) Result panel 88 Specimen collection (procedure) (no date) [facility] (missing) (missing) (missing) Result panel 89 Specimen collection (procedure) (no date) [facility] (missing) (missing) (missing) Result panel 90 Specimen collection (procedure) (no date) [facility] (missing) (missing) (missing) Result panel 91 Specimen collection (procedure) (no date) [facility] (missing) (missing) (missing) Result panel 92 Specimen collection (procedure) (no date) [facility] (missing) (missing) (missing) Result panel 93 Specimen collection (procedure) (no date) [facility] (missing) (missing) (missing) Result panel 94 Specimen collection (procedure) (no date) [facility] (missing) (missing) (missing) Result panel 95 Specimen collection (procedure) (no date) [facility] (missing) (missing) (missing) Result panel 96 Specimen collection (procedure) (no date) [facility] (missing) (missing) (missing) Result panel 97 Specimen collection (procedure) (no date) [facility] (missing) (missing) (missing) Result panel 98 Specimen collection (procedure) (no date) [facility] (missing) (missing) (missing) Result panel 99 Specimen collection (procedure) (no date) [facility] (missing) (missing) (missing) Result panel 100 Specimen collection (procedure) (no date) [facility] (missing) (missing) (missing) Result panel 101 Specimen collection (procedure) (no date) [facility] (missing) (missing) (missing) Result panel 102 Specimen collection (procedure) (no date) [facility] (missing) (missing) (missing) Result panel 103 Specimen collection (procedure) (no date) [facility] (missing) (missing) (missing) Result panel 104 Specimen collection (procedure) (no date) [facility] (missing) (missing) (missing) Result panel 105 Specimen collection (procedure) (no date) [facility] (missing) (missing) (missing) Result panel 106 Specimen collection (procedure) (no date) [facility] (missing) (missing) (missing) Result panel 107 Specimen collection (procedure) (no date) [facility] (missing) (missing) (missing) Result panel 108 Specimen collection (procedure) (no date) [facility] (missing) (missing) (missing) Result panel 109 Specimen collection (procedure) (no date) [facility] (missing) (missing) (missing) Result panel 110 Specimen collection (procedure) (no date) [facility] (missing) (missing) (missing) Result panel 111 Specimen collection (procedure) (no date) [facility] (missing) (missing) (missing) Result panel 112 Specimen collection (procedure) (no date) [facility] (missing) (missing) (missing) Result panel 113 Specimen collection (procedure) (no date) [facility] (missing) (missing) (missing) Result panel 114 Specimen collection (procedure) (no date) [facility] (missing) (missing) (missing) Result panel 115 Specimen collection (procedure) (no date) [facility] (missing) (missing) (missing) Result panel 116 Specimen collection (procedure) (no date) [facility] (missing) (missing) (missing) Result panel 117 Specimen collection (procedure) (no date) [facility] (missing) (missing) (missing) Result panel 118 Specimen collection (procedure) (no date) [facility] (missing) (missing) (missing) Result panel 119 Specimen collection (procedure) (no date) [facility] (missing) (missing) (missing) Result panel 120 Specimen collection (procedure) (no date) [facility] (missing) (missing) (missing) Result panel 121 Specimen collection (procedure) (no date) [facility] (missing) (missing) (missing) Result panel 122 Specimen collection (procedure) (no date) [facility] (missing) (missing) (missing) Result panel 123 Specimen collection (procedure) (no date) [facility] (missing) (missing) (missing) Result panel 124 Specimen collection (procedure) (no date) [facility] (missing) (missing) (missing) Result panel 125 Specimen collection (procedure) (no date) [facility] (missing) (missing) (missing) Result panel 126 Specimen collection (procedure) (no date) [facility] (missing) (missing) (missing) Result panel 127 Specimen collection (procedure) (no date) [facility] (missing) (missing) (missing) Result panel 128 Specimen collection (procedure) (no date) [facility] (missing) (missing) (missing) Result panel 129 Specimen collection (procedure) (no date) [facility] (missing) (missing) (missing) Result panel 130 Specimen collection (procedure) (no date) [facility] (missing) (missing) (missing) Result panel 131 Specimen collection (procedure) (no date) [facility] (missing) (missing) (missing) Result panel 132 Specimen collection (procedure) (no date) [facility] (missing) (missing) (missing) Result panel 133 Specimen collection (procedure) (no date) [facility] (missing) (missing) (missing) Result panel 134 Specimen collection (procedure) (no date) [facility] (missing) (missing) (missing) Result panel 135 Specimen collection (procedure) (no date) [facility] (missing) (missing) (missing) Result panel 136 Specimen collection (procedure) (no date) [facility] (missing) (missing) (missing) Result panel 137 Specimen collection (procedure) (no date) [facility] (missing) (missing) (missing) Result panel 138 Specimen collection (procedure) (no date) [facility] (missing) (missing) (missing) Result panel 139 Specimen collection (procedure) (no date) [facility] (missing) (missing) (missing) Result panel 140 Specimen collection (procedure) (no date) [facility] (missing) (missing) (missing) Result panel 141 Specimen collection (procedure) (no date) [facility] (missing) (missing) (missing) Result panel 142 Specimen collection (procedure) (no date) [facility] (missing) (missing) (missing) Result panel 143 Specimen collection (procedure) (no date) [facility] (missing) (missing) (missing) Result panel 144 Specimen collection (procedure) (no date) [facility] (missing) (missing) (missing) Result panel 145 Specimen collection (procedure) (no date) [facility] (missing) (missing) (missing) Result panel 146 Specimen collection (procedure) (no date) [facility] (missing) (missing) (missing) Result panel 147 Specimen collection (procedure) (no date) [facility] (missing) (missing) (missing) Result panel 148 Specimen collection (procedure) (no date) [facility] (missing) (missing) (missing) Result panel 149 Specimen collection (procedure) (no date) [facility] (missing) (missing) (missing) Result panel 150 Specimen collection (procedure) (no date) [facility] (missing) (missing) (missing) Result panel 151 Specimen collection (procedure) (no date) [facility] (missing) (missing) (missing) Result panel 152 Specimen collection (procedure) (no date) [facility] (missing) (missing) (missing) Result panel 153 Specimen collection (procedure) (no date) [facility] (missing) (missing) (missing) Result panel 154 Specimen collection (procedure) (no date) [facility] (missing) (missing) (missing) Result panel 155 Specimen collection (procedure) (no date) [facility] (missing) (missing) (missing) Result panel 156 Specimen collection (procedure) (no date) [facility] (missing) (missing) (missing) Result panel 157 Specimen collection (procedure) (no date) [facility] (missing) (missing) (missing) Result panel 158 Specimen collection (procedure) (no date) [facility] (missing) (missing) (missing) Result panel 159 Specimen collection (procedure) (no date) [facility] (missing) (missing) (missing) Result panel 160 Specimen collection (procedure) (no date) [facility] (missing) (missing) (missing) Result panel 161 Specimen collection (procedure) (no date) [facility] (missing) (missing) (missing) Result panel 162 Specimen collection (procedure) (no date) [facility] (missing) (missing) (missing) Result panel 163 Specimen collection (procedure) (no date) [facility] (missing) (missing) (missing) Result panel 164 Specimen collection (procedure) (no date) [facility] (missing) (missing) (missing) Result panel 165 Specimen collection (procedure) (no date) [facility] (missing) (missing) (missing) Result panel 166 Specimen collection (procedure) (no date) [facility] (missing) (missing) (missing) Result panel 167 Specimen collection (procedure) (no date) [facility] (missing) (missing) (missing) Result panel 168 Specimen collection (procedure) (no date) [facility] (missing) (missing) (missing) Result panel 169 Specimen collection (procedure) (no date) [facility] (missing) (missing) (missing) Result panel 170 Specimen collection (procedure) (no date) [facility] (missing) (missing) (missing) Result panel 171 Specimen collection (procedure) (no date) [facility] (missing) (missing) (missing) Result panel 172 Specimen collection (procedure) (no date) [facility] (missing) (missing) (missing) Result panel 173 Specimen collection (procedure) (no date) [facility] (missing) (missing) (missing) Result panel 174 Specimen collection (procedure) (no date) [facility] (missing) (missing) (missing) Result panel 175 Specimen collection (procedure) (no date) [facility] (missing) (missing) (missing) Result panel 176 Specimen collection (procedure) (no date) [facility] (missing) (missing) (missing) Result panel 177 Specimen collection (procedure) (no date) [facility] (missing) (missing) (missing) Result panel 178 Specimen collection (procedure) (no date) [facility] (missing) (missing) (missing) Result panel 179 Specimen collection (procedure) (no date) [facility] (missing) (missing) (missing) Result panel 180 Specimen collection (procedure) (no date) [facility] (missing) (missing) (missing) Result panel 181 Specimen collection (procedure) (no date) [facility] (missing) (missing) (missing) Result panel 182 Specimen collection (procedure) (no date) [facility] (missing) (missing) (missing) Result panel 183 Specimen collection (procedure) (no date) [facility] (missing) (missing) (missing) Result panel 184 Specimen collection (procedure) (no date) [facility] (missing) (missing) (missing) Result panel 185 Specimen collection (procedure) (no date) [facility] (missing) (missing) (missing) Result panel 186 Specimen collection (procedure) (no date) [facility] (missing) (missing) (missing) Result panel 187 Specimen collection (procedure) (no date) [facility] (missing) (missing) (missing) Result panel 188 Specimen collection (procedure) (no date) [facility] (missing) (missing) (missing) Result panel 189 Specimen collection (procedure) (no date) [facility] (missing) (missing) (missing) Result panel 190 Specimen collection (procedure) (no date) [facility] (missing) (missing) (missing) Result panel 191 Specimen collection (procedure) (no date) [facility] (missing) (missing) (missing) Result panel 192 Specimen collection (procedure) (no date) [facility] (missing) (missing) (missing) Result panel 193 Specimen collection (procedure) (no date) [facility] (missing) (missing) (missing) Result panel 194 Specimen collection (procedure) (no date) [facility] (missing) (missing) (missing) Result panel 195 Specimen collection (procedure) (no date) [facility] (missing) (missing) (missing) Result panel 196 Specimen collection (procedure) (no date) [facility] (missing) (missing) (missing) Result panel 197 Specimen collection (procedure) (no date) [facility] (missing) (missing) (missing) Result panel 198 Specimen collection (procedure) (no date) [facility] (missing) (missing) (missing) Result panel 199 Specimen collection (procedure) (no date) [facility] (missing) (missing) (missing) Result panel 200 Specimen collection (procedure) (no date) [facility] (missing) (missing) (missing) Result panel 201 Specimen collection (procedure) (no date) [facility] (missing) (missing) (missing) Result panel 202 Specimen collection (procedure) (no date) [facility] (missing) (missing) (missing) Result panel 203 Specimen collection (procedure) (no date) [facility] (missing) (missing) (missing) Result panel 204 Specimen collection (procedure) (no date) [facility] (missing) (missing) (missing) Result panel 205 Specimen collection (procedure) (no date) [facility] (missing) (missing) (missing) Result panel 206 Specimen collection (procedure) (no date) [facility] (missing) (missing) (missing) Result panel 207 Specimen collection (procedure) (no date) [facility] (missing) (missing) (missing) Result panel 208 Specimen collection (procedure) (no date) [facility] (missing) (missing) (missing) Result panel 209 Specimen collection (procedure) (no date) [facility] (missing) (missing) (missing) Result panel 210 Specimen collection (procedure) (no date) [facility] (missing) (missing) (missing) Result panel 211 Specimen collection (procedure) (no date) [facility] (missing) (missing) (missing) Result panel 212 Specimen collection (procedure) (no date) [facility] (missing) (missing) (missing) Result panel 213 Specimen collection (procedure) (no date) [facility] (missing) (missing) (missing) Result panel 214 Specimen collection (procedure) (no date) [facility] (missing) (missing) (missing) Result panel 215 Specimen collection (procedure) (no date) [facility] (missing) (missing) (missing) Result panel 216 Specimen collection (procedure) (no date) [facility] (missing) (missing) (missing) Result panel 217 Specimen collection (procedure) (no date) [facility] (missing) (missing) (missing) Result panel 218 Specimen collection (procedure) (no date) [facility] (missing) (missing) (missing) Result panel 219 Specimen collection (procedure) (no date) [facility] (missing) (missing) (missing) Result panel 220 Specimen collection (procedure) (no date) [facility] (missing) (missing) (missing) Result panel 221 Specimen collection (procedure) (no date) [facility] (missing) (missing) (missing) Result panel 222 Specimen collection (procedure) (no date) [facility] (missing) (missing) (missing) Result panel 223 Specimen collection (procedure) (no date) [facility] (missing) (missing) (missing) Result panel 224 Specimen collection (procedure) (no date) [facility] (missing) (missing) (missing) Result panel 225 Specimen collection (procedure) (no date) [facility] (missing) (missing) (missing) Result panel 226 Specimen collection (procedure) (no date) [facility] (missing) (missing) (missing) Result panel 227 Specimen collection (procedure) (no date) [facility] (missing) (missing) (missing) Result panel 228 Specimen collection (procedure) (no date) [facility] (missing) (missing) (missing) Result panel 229 Specimen collection (procedure) (no date) [facility] (missing) (missing) (missing) Result panel 230 Specimen collection (procedure) (no date) [facility] (missing) (missing) (missing) Result panel 231 Specimen collection (procedure) (no date) [facility] (missing) (missing) (missing) Result panel 232 Specimen collection (procedure) (no date) [facility] (missing) (missing) (missing) Result panel 233 Specimen collection (procedure) (no date) [facility] (missing) (missing) (missing) Result panel 234 Specimen collection (procedure) (no date) [facility] (missing) (missing) (missing) Result panel 235 Specimen collection (procedure) (no date) [facility] (missing) (missing) (missing) Result panel 236 Specimen collection (procedure) (no date) [facility] (missing) (missing) (missing) Result panel 237 Specimen collection (procedure) (no date) [facility] (missing) (missing) (missing) Result panel 238 Specimen collection (procedure) (no date) [facility] (missing) (missing) (missing) Result panel 239 Specimen collection (procedure) (no date) [facility] (missing) (missing) (missing) Result panel 240 Specimen collection (procedure) (no date) [facility] (missing) (missing) (missing) Result panel 241 Specimen collection (procedure) (no date) [facility] (missing) (missing) (missing) Result panel 242 Specimen collection (procedure) (no date) [facility] (missing) (missing) (missing) Result panel 243 Specimen collection (procedure) (no date) [facility] (missing) (missing) (missing) Result panel 244 Specimen collection (procedure) (no date) [facility] (missing) (missing) (missing) Result panel 245 Specimen collection (procedure) (no date) [facility] (missing) (missing) (missing) Result panel 246 Specimen collection (procedure) (no date) [facility] (missing) (missing) (missing) Result panel 247 Specimen collection (procedure) (no date) [facility] (missing) (missing) (missing) Result panel 248 Specimen collection (procedure) (no date) [facility] (missing) (missing) (missing) Result panel 249 Specimen collection (procedure) (no date) [facility] (missing) (missing) (missing) Result panel 250 Specimen collection (procedure) (no date) [facility] (missing) (missing) (missing) Result panel 251 Specimen collection (procedure) (no date) [facility] (missing) (missing) (missing) Result panel 252 Specimen collection (procedure) (no date) [facility] (missing) (missing) (missing) Result panel 253 Specimen collection (procedure) (no date) [facility] (missing) (missing) (missing) Result panel 254 Specimen collection (procedure) (no date) [facility] (missing) (missing) (missing) Result panel 255 Specimen collection (procedure) (no date) [facility] (missing) (missing) (missing) Result panel 256 Specimen collection (procedure) (no date) [facility] (missing) (missing) (missing) Result panel 257 Specimen collection (procedure) (no date) [facility] (missing) (missing) (missing) Result panel 258 Specimen collection (procedure) (no date) [facility] (missing) (missing) (missing) Result panel 259 Specimen collection (procedure) (no date) [facility] (missing) (missing) (missing) Result panel 260 Specimen collection (procedure) (no date) [facility] (missing) (missing) (missing) Result panel 261 Specimen collection (procedure) (no date) [facility] (missing) (missing) (missing) Result panel 262 Specimen collection (procedure) (no date) [facility] (missing) (missing) (missing) Result panel 263 Specimen collection (procedure) (no date) [facility] (missing) (missing) (missing) Result panel 264 Specimen collection (procedure) (no date) [facility] (missing) (missing) (missing) Result panel 265 Specimen collection (procedure) (no date) [facility] (missing) (missing) (missing) Result panel 266 Specimen collection (procedure) (no date) [facility] (missing) (missing) (missing) Result panel 267 Specimen collection (procedure) (no date) [facility] (missing) (missing) (missing) Result panel 268 Specimen collection (procedure) (no date) [facility] (missing) (missing) (missing) Result panel 269 Specimen collection (procedure) (no date) [facility] (missing) (missing) (missing) Result panel 270 Specimen collection (procedure) (no date) [facility] (missing) (missing) (missing) Result panel 271 Specimen collection (procedure) (no date) [facility] (missing) (missing) (missing) Result panel 272 Specimen collection (procedure) (no date) [facility] (missing) (missing) (missing) Result panel 273 Specimen collection (procedure) (no date) [facility] (missing) (missing) (missing) Result panel 274 Specimen collection (procedure) (no date) [facility] (missing) (missing) (missing) Result panel 275 Specimen collection (procedure) (no date) [facility] (missing) (missing) (missing) Result panel 276 Specimen collection (procedure) (no date) [facility] (missing) (missing) (missing) Result panel 277 Specimen collection (procedure) (no date) [facility] (missing) (missing) (missing) Result panel 278 Specimen collection (procedure) (no date) [facility] (missing) (missing) (missing) Result panel 279 Specimen collection (procedure) (no date) [facility] (missing) (missing) (missing) Result panel 280 Specimen collection (procedure) (no date) [facility] (missing) (missing) (missing) Result panel 281 Specimen collection (procedure) (no date) [facility] (missing) (missing) (missing) Result panel 282 Specimen collection (procedure) (no date) [facility] (missing) (missing) (missing) Result panel 283 Specimen collection (procedure) (no date) [facility] (missing) (missing) (missing) Result panel 284 Specimen collection (procedure) (no date) [facility] (missing) (missing) (missing) Result panel 285 Specimen collection (procedure) (no date) [facility] (missing) (missing) (missing) Result panel 286 Specimen collection (procedure) (no date) [facility] (missing) (missing) (missing) Result panel 287 Specimen collection (procedure) (no date) [facility] (missing) (missing) (missing) Result panel 288 Specimen collection (procedure) (no date) [facility] (missing) (missing) (missing) Result panel 289 Specimen collection (procedure) (no date) [facility] (missing) (missing) (missing) Result panel 290 Specimen collection (procedure) (no date) [facility] (missing) (missing) (missing) Result panel 291 Specimen collection (procedure) (no date) [facility] (missing) (missing) (missing) Result panel 292 Specimen collection (procedure) (no date) [facility] (missing) (missing) (missing) Result panel 293 Specimen collection (procedure) (no date) [facility] (missing) (missing) (missing) Result panel 294 Specimen collection (procedure) (no date) [facility] (missing) (missing) (missing) Result panel 295 Specimen collection (procedure) (no date) [facility] (missing) (missing) (missing) Result panel 296 Specimen collection (procedure) (no date) [facility] (missing) (missing) (missing) Result panel 297 Specimen collection (procedure) (no date) [facility] (missing) (missing) (missing) Result panel 298 Specimen collection (procedure) (no date) [facility] (missing) (missing) (missing) Result panel 299 Specimen collection (procedure) (no date) [facility] (missing) (missing) (missing) Result panel 300 Specimen collection (procedure) (no date) [facility] (missing) (missing) (missing) Result panel 301 Specimen collection (procedure) (no date) [facility] (missing) (missing) (missing) Result panel 302 Specimen collection (procedure) (no date) [facility] (missing) (missing) (missing) Result panel 303 Specimen collection (procedure) (no date) [facility] (missing) (missing) (missing) Result panel 304 Specimen collection (procedure) (no date) [facility] (missing) (missing) (missing) Result panel 305 Specimen collection (procedure) (no date) [facility] (missing) (missing) (missing) Result panel 306 Specimen collection (procedure) (no date) [facility] (missing) (missing) (missing) Result panel 307 Specimen collection (procedure) (no date) [facility] (missing) (missing) (missing) Result panel 308 Specimen collection (procedure) (no date) [facility] (missing) (missing) (missing) Result panel 309 Specimen collection (procedure) (no date) [facility] (missing) (missing) (missing) Result panel 310 Specimen collection (procedure) (no date) [facility] (missing) (missing) (missing) Result panel 311 Specimen collection (procedure) (no date) [facility] (missing) (missing) (missing) Result panel 312 Specimen collection (procedure) (no date) [facility] (missing) (missing) (missing) Result panel 313 Specimen collection (procedure) (no date) [facility] (missing) (missing) (missing) Result panel 314 Specimen collection (procedure) (no date) [facility] (missing) (missing) (missing) Result panel 315 Specimen collection (procedure) (no date) [facility] (missing) (missing) (missing) Result panel 316 Specimen collection (procedure) (no date) [facility] (missing) (missing) (missing) Result panel 317 Specimen collection (procedure) (no date) [facility] (missing) (missing) (missing) Result panel 318 Specimen collection (procedure) (no date) [facility] (missing) (missing) (missing) Result panel 319 Specimen collection (procedure) (no date) [facility] (missing) (missing) (missing) Result panel 320 Specimen collection (procedure) (no date) [facility] (missing) (missing) (missing) Result panel 321 Specimen collection (procedure) (no date) [facility] (missing) (missing) (missing) Result panel 322 Specimen collection (procedure) (no date) [facility] (missing) (missing) (missing) Result panel 323 Specimen collection (procedure) (no date) [facility] (missing) (missing) (missing) Result panel 324 Specimen collection (procedure) (no date) [facility] (missing) (missing) (missing) Result panel 325 Specimen collection (procedure) (no date) [facility] (missing) (missing) (missing) Result panel 326 Specimen collection (procedure) (no date) [facility] (missing) (missing) (missing) Result panel 327 Specimen collection (procedure) (no date) [facility] (missing) (missing) (missing) Result panel 328 Specimen collection (procedure) (no date) [facility] (missing) (missing) (missing) Result panel 329 Specimen collection (procedure) (no date) [facility] (missing) (missing) (missing) Result panel 330 Specimen collection (procedure) (no date) [facility] (missing) (missing) (missing) Result panel 331 Specimen collection (procedure) (no date) [facility] (missing) (missing) (missing) Result panel 332 Specimen collection (procedure) (no date) [facility] (missing) (missing) (missing) Result panel 333 Specimen collection (procedure) (no date) [facility] (missing) (missing) (missing) Result panel 334 Specimen collection (procedure) (no date) [facility] (missing) (missing) (missing) Result panel 335 Specimen collection (procedure) (no date) [facility] (missing) (missing) (missing) Result panel 336 Specimen collection (procedure) (no date) [facility] (missing) (missing) (missing) Result panel 337 Specimen collection (procedure) (no date) [facility] (missing) (missing) (missing) Result panel 338 Specimen collection (procedure) (no date) [facility] (missing) (missing) (missing) Result panel 339 Specimen collection (procedure) (no date) [facility] (missing) (missing) (missing) Result panel 340 Specimen collection (procedure) (no date) [facility] (missing) (missing) (missing) Result panel 341 Specimen collection (procedure) (no date) [facility] (missing) (missing) (missing) Result panel 342 Specimen collection (procedure) (no date) [facility] (missing) (missing) (missing) Result panel 343 Specimen collection (procedure) (no date) [facility] (missing) (missing) (missing) Result panel 344 Specimen collection (procedure) (no date) [facility] (missing) (missing) (missing) Result panel 345 Specimen collection (procedure) (no date) [facility] (missing) (missing) (missing) Result panel 346 Specimen collection (procedure) (no date) [facility] (missing) (missing) (missing) Result panel 347 Specimen collection (procedure) (no date) [facility] (missing) (missing) (missing) Result panel 348 Specimen collection (procedure) (no date) [facility] (missing) (missing) (missing) Result panel 349 Specimen collection (procedure) (no date) [facility] (missing) (missing) (missing) Result panel 350 Specimen collection (procedure) (no date) [facility] (missing) (missing) (missing) Result panel 351 Specimen collection (procedure) (no date) [facility] (missing) (missing) (missing) Result panel 352 Specimen collection (procedure) (no date) [facility] (missing) (missing) (missing) Result panel 353 Specimen collection (procedure) (no date) [facility] (missing) (missing) (missing) Result panel 354 Specimen collection (procedure) (no date) [facility] (missing) (missing) (missing) Result panel 355 Specimen collection (procedure) (no date) [facility] (missing) (missing) (missing) Result panel 356 Specimen collection (procedure) (no date) [facility] (missing) (missing) (missing) Result panel 357 Specimen collection (procedure) (no date) [facility] (missing) (missing) (missing) Result panel 358 Specimen collection (procedure) (no date) [facility] (missing) (missing) (missing) Result panel 359 Specimen collection (procedure) (no date) [facility] (missing) (missing) (missing) Result panel 360 Specimen collection (procedure) (no date) [facility] (missing) (missing) (missing) Result panel 361 Specimen collection (procedure) (no date) [facility] (missing) (missing) (missing) Result panel 362 Specimen collection (procedure) (no date) [facility] (missing) (missing) (missing) Result panel 363 Specimen collection (procedure) (no date) [facility] (missing) (missing) (missing) Result panel 364 Specimen collection (procedure) (no date) [facility] (missing) (missing) (missing) Result panel 365 Specimen collection (procedure) (no date) [facility] (missing) (missing) (missing) Result panel 366 Specimen collection (procedure) (no date) [facility] (missing) (missing) (missing) Result panel 367 Specimen collection (procedure) (no date) [facility] (missing) (missing) (missing) Result panel 368 Specimen collection (procedure) (no date) [facility] (missing) (missing) (missing) Result panel 369 Specimen collection (procedure) (no date) [facility] (missing) (missing) (missing) Result panel 370 Specimen collection (procedure) (no date) [facility] (missing) (missing) (missing) Result panel 371 Specimen collection (procedure) (no date) [facility] (missing) (missing) (missing) Result panel 372 Specimen collection (procedure) (no date) [facility] (missing) (missing) (missing) Result panel 373 Specimen collection (procedure) (no date) [facility] (missing) (missing) (missing) Result panel 374 Specimen collection (procedure) (no date) [facility] (missing) (missing) (missing) Result panel 375 Specimen collection (procedure) (no date) [facility] (missing) (missing) (missing) Result panel 376 Specimen collection (procedure) (no date) [facility] (missing) (missing) (missing) Result panel 377 Specimen collection (procedure) (no date) [facility] (missing) (missing) (missing) Result panel 378 Specimen collection (procedure) (no date) [facility] (missing) (missing) (missing) Result panel 379 Specimen collection (procedure) (no date) [facility] (missing) (missing) (missing) Result panel 380 Specimen collection (procedure) (no date) [facility] (missing) (missing) (missing) Result panel 381 Specimen collection (procedure) (no date) [facility] (missing) (missing) (missing) Result panel 382 Specimen collection (procedure) (no date) [facility] (missing) (missing) (missing) Result panel 383 Specimen collection (procedure) (no date) [facility] (missing) (missing) (missing) Result panel 384 Specimen collection (procedure) (no date) [facility] (missing) (missing) (missing) Result panel 385 Specimen collection (procedure) (no date) [facility] (missing) (missing) (missing) Result panel 386 Specimen collection (procedure) (no date) [facility] (missing) (missing) (missing) Result panel 387 Specimen collection (procedure) (no date) [facility] (missing) (missing) (missing) Result panel 388 Specimen collection (procedure) (no date) [facility] (missing) (missing) (missing) Result panel 389 Specimen collection (procedure) (no date) [facility] (missing) (missing) (missing) Result panel 390 Specimen collection (procedure) (no date) [facility] (missing) (missing) (missing) Result panel 391 Specimen collection (procedure) (no date) [facility] (missing) (missing) (missing) Result panel 392 Specimen collection (procedure) (no date) [facility] (missing) (missing) (missing) Result panel 393 Specimen collection (procedure) (no date) [facility] (missing) (missing) (missing) Result panel 394 Specimen collection (procedure) (no date) [facility] (missing) (missing) (missing) Result panel 395 Specimen collection (procedure) (no date) [facility] (missing) (missing) (missing) Result panel 396 Specimen collection (procedure) (no date) [facility] (missing) (missing) (missing) Result panel 397 Specimen collection (procedure) (no date) [facility] (missing) (missing) (missing) Result panel 398 Specimen collection (procedure) (no date) [facility] (missing) (missing) (missing) Result panel 399 Specimen collection (procedure) (no date) [facility] (missing) (missing) (missing) Result panel 400 Specimen collection (procedure) (no date) [facility] (missing) (missing) (missing) Result panel 401 Specimen collection (procedure) (no date) [facility] (missing) (missing) (missing) Result panel 402 Specimen collection (procedure) (no date) [facility] (missing) (missing) (missing) Result panel 403 Specimen collection (procedure) (no date) [facility] (missing) (missing) (missing) Result panel 404 Specimen collection (procedure) (no date) [facility] (missing) (missing) (missing) Result panel 405 Specimen collection (procedure) (no date) [facility] (missing) (missing) (missing) Result panel 406 Specimen collection (procedure) (no date) [facility] (missing) (missing) (missing) Result panel 407 Specimen collection (procedure) (no date) [facility] (missing) (missing) (missing) Result panel 408 Specimen collection (procedure) (no date) [facility] (missing) (missing) (missing) Result panel 409 Specimen collection (procedure) (no date) [facility] (missing) (missing) (missing) Result panel 410 Specimen collection (procedure) (no date) [facility] (missing) (missing) (missing) Result panel 411 Specimen collection (procedure) (no date) [facility] (missing) (missing) (missing) Result panel 412 Specimen collection (procedure) (no date) [facility] (missing) (missing) (missing) Result panel 413 Specimen collection (procedure) (no date) [facility] (missing) (missing) (missing) Result panel 414 Specimen collection (procedure) (no date) [facility] (missing) (missing) (missing) Result panel 415 Specimen collection (procedure) (no date) [facility] (missing) (missing) (missing) Result panel 416 Specimen collection (procedure) (no date) [facility] (missing) (missing) (missing) Result panel 417 Specimen collection (procedure) (no date) [facility] (missing) (missing) (missing) Result panel 418 Specimen collection (procedure) (no date) [facility] (missing) (missing) (missing) Result panel 419 Specimen collection (procedure) (no date) [facility] (missing) (missing) (missing) Result panel 420 Specimen collection (procedure) (no date) [facility] (missing) (missing) (missing) Result panel 421 Specimen collection (procedure) (no date) [facility] (missing) (missing) (missing) Result panel 422 Specimen collection (procedure) (no date) [facility] (missing) (missing) (missing) Result panel 423 Specimen collection (procedure) (no date) [facility] (missing) (missing) (missing) Result panel 424 Specimen collection (procedure) (no date) [facility] (missing) (missing) (missing) Result panel 425 Specimen collection (procedure) (no date) [facility] (missing) (missing) (missing) Result panel 426 Specimen collection (procedure) (no date) [facility] (missing) (missing) (missing) Result panel 427 Specimen collection (procedure) (no date) [facility] (missing) (missing) (missing) Result panel 428 Specimen collection (procedure) (no date) [facility] (missing) (missing) (missing) Result panel 429 Specimen collection (procedure) (no date) [facility] (missing) (missing) (missing) Result panel 430 Specimen collection (procedure) (no date) [facility] (missing) (missing) (missing) Result panel 431 Specimen collection (procedure) (no date) [facility] (missing) (missing) (missing) Result panel 432 Specimen collection (procedure) (no date) [facility] (missing) (missing) (missing) Result panel 433 Specimen collection (procedure) (no date) [facility] (missing) (missing) (missing) Result panel 434 Specimen collection (procedure) (no date) [facility] (missing) (missing) (missing) Result panel 435 Specimen collection (procedure) (no date) [facility] (missing) (missing) (missing) Result panel 436 Specimen collection (procedure) (no date) [facility] (missing) (missing) (missing) Result panel 437 Troponin I.cardiac [Mass/volume] in Serum or Plasma 2024-09-27 10:35:07 [facility] < 0.012 ng/mL (missing) (missing) Result panel 438 Natriuretic peptide.B prohormone N-Terminal [Mass/volume] in Serum or Plasma 2024-09-27 10:35:07 [facility] 2300 pg/mL (miss ing) Result panel 439 Bilirubin.total [Mass/volume ] in Serum or Plasma 2024-09-27 10:35:07 [facility] 2.1 mg/dL (missing) Result panel 440 Aspartate aminotransferase [Enzymatic activity/volume] in Serum or Plasma 2024-09-27 10:35:07 [facility] 38 IU/L (m issing) Result panel 441 Alanine aminotransferase [Enzymatic activity/volume] in Serum or Plasma 2024-09-27 10:35:07 [facility] 29 IU/L (m issing) Result panel 442 Alkaline phosphatase [Enzyma tic activity/volume] in Serum or Plasma 2024-09-27 10:35:07 [facility] 120 U/L (miss ing) Result panel 443 Protein total ser/plas 2024-09-27 10:35:07 [facility] 8 .0 g/dL (missing) Result panel 444 Albumin [Mass/volume] in Ser um or Plasma 2024-09-27 10:35:07 [facility] 4.5 g/dL (miss ing) Result panel 445 Globulin [Mass/volume] in Serum by calculation 2024-09-27 10:35:07 [facility] 3.5 g/dL (missing) Result panel 446 Albumin/Globulin [Mass Ratio] in Serum or Plasma 2024-09-27 10:35:07 [facility] 1.3 (miss ing) (missing) Result panel 447 Procalcitonin [Mass/volume] in Serum or Plasma 2024-09-27 10:35:07 [facility] 0.103 ng/mL (missing) Result panel 448 Blood culture 2024-09-27 10:35:07 [facility] NO G ROWTH AFTER 5 DAYS (missing) (missing) Result panel 449 Troponin I.cardiac [Mass/volume] in Serum or Plasma 2024-09-27 10:35:07 [facility] < 0.012 ng/mL (missing) (missing) Result panel 450 Natriuretic peptide.B prohormone N-Terminal [Mass/volume] in Serum or Plasma 2024-09-27 10:35:07 [facility] 2300 pg/mL ([facility]) Result panel 451 Bilirubin.total [Mass/volume ] in Serum or Plasma 2024-09-27 10:35:07 [facility] 2.1 mg/dL (missing) Result panel 452 Aspartate aminotransferase [Enzymatic activity/volume] in Serum or Plasma 2024-09-27 10:35:07 [facility]L [facility] Result panel 453 Alanine aminotransferase [Enzymatic activity/volume] in Serum or Plasma 2024-09-27 10:35:07 [facility] 29 IU/L ([facility] Result panel 454 Alkaline phosphatase [Enzyma tic activity/volume] in Serum or Plasma 2024-09-27 10:35:07 [facility] 120 U/L ([facility]) Result panel 455 Protein total ser/plas 2024-09-27 10:35:07 [facility] 8 .0 g/dL (missing) Result panel 456 Albumin [Mass/volume] in Ser um or Plasma 2024-09-27 10:35:07 [facility] 4.5 g/dL ([facility]) Result panel 457 Globulin [Mass/volume] in Serum by calculation 2024-09-27 10:35:07 [facility] 3.5 g/dL (missing) Result panel 458 Albumin/Globulin [Mass Ratio] in Serum or Plasma 2024-09-27 10:35:07 [facility] 1.3 (critical [facility]) (missing) Result panel 459 Procalcitonin [Mass/volume] in Serum or Plasma 2024-09-27 10:35:07 [facility] 0.103 ng/mL (missing) Result panel 460 White blood cell count 2024-09-27 10:35:07 [facility] 1 1.3 X10^3/uL (missing) Result panel 461 Red blood cell count 2024-09-27 10:35:07 [facility] 5.2 8 X10^6/uL (missing) Result panel 462 Hemoglobin 2024-09-27 10:35:07 [facility] 15.8 g/d L (missing) Result panel 463 Hematocrit 2024-09-27 10:35:07 [facility] 46.2 % (missing) Result panel 464 MCV (mean corpuscular volume ) determination 2024-09-27 10:35:07 [facility] 87.4 fL (mis sing) Result panel 465 Mean corpuscular hemoglobin (MCH) determination 2024-09-27 10:35:07 [facility] 30.0 PG (missing) Result panel 466 Mean corpuscular hemoglobin concentration (MCHC) determination 2024-09-27 10:35:07 [facility] 34.3 % (mis sing) Result panel 467 Red cell distribution width determination 2024-09-27 10:35:07 [facility] 15.2 % (mis sing) Result panel 468 Platelet count 2024-09-27 10:35:07 [facility] 282 X10^3/uL (missing) Result panel 469 Automated neutrophil % 2024-09-27 10:35:07 [facility] 7 5.8 % (missing) Result panel 470 Automated lymphocyte % 2024-09-27 10:35:07 [facility] 1 2.1 % (missing) Result panel 471 Automated monocyte % 2024-09-27 10:35:07 [facility] 11. 1 % (missing) Result panel 472 Automated eosinophil % 2024-09-27 10:35:07 [facility] 0 .7 % (missing) Result panel 473 Automated basophil % 2024-09-27 10:35:07 [facility] 0.3 % (missing) Result panel 474 Absolute neutrophil count 2024-09-27 10:35:07 [facility] 8600 /uL (missing) Result panel 475 Absolute lymphocyte [facility]24-09-27 [facility] Result panel 476 Automated blood monocyte count 2024-09-27 10:35:07 [facility] 1300 /uL (missing) Result panel 477 Automated eosinophil count 2024-09-27 [facility] Result panel 478 Automated basophil count 2024-09-27 10:35:07 [facility] 0 /uL (missing) Result panel 479 Serum prothrombin time 2024-09-27 10:35:07 [facility] 3 0.8 SECONDS (missing) Result panel 480 INR in Platelet poor plasma by Coagulation assay 2024-09-27 10:35:07 [facility] 2.8 (missing) (miss ing) Result panel 481 Troponin I.cardiac [Mass/volume] in Serum or Plasma 2024-09-27 10:35:07 [facility] < 0.012 ng/mL (missing) (missing) Result panel 482 Natriuretic peptide.B prohormone N-Terminal [Mass/volume] in Serum or Plasma 2024-09-27 10:35:07 [facility] 2300 pg/mL (miss [facility]) Result panel 483 Sodium [Moles/volume] in Serum or Plasma 2024-09-27 10:35:07 [facility] 139 mmol/L ([facility]) Result panel 484 Potassium [Moles/volume] in Serum or Plasma 2024-09-27 10:35:07 [facility] 4.5 mmol/L ([facility]) Result panel 485 Chloride [Moles/volume] in Serum or Plasma 2024-09-27 10:35:07 [facility] 106 mmol/L ([facility]) Result panel 486 Carbon dioxide, total [Moles/volume] in Serum or Plasma 2024-09-27 10:35:07 [facility] 19 mmol/L ([facility]) Result panel 487 Urea nitrogen [Mass/volume] in Serum or Plasma 2024-09-27 10:35:07 [facility] 18 mg/dL ([facility]) Result panel 488 Creatinine [Mass/volume] in Serum or Plasma 2024-09-27 10:35:07 [facility] 1.27 mg/dL (formerly [facility]) Result panel 489 Glomerular filtration rate (GFR) estimation 2024-09-27 10:35:07 [facility] 55 mL/min ( missing) Result panel 490 BUN/creatinine ratio 2024-09-27 10:35:07 [facility] 14. 2 (missing) (missing) Result panel 491 Glucose [Mass/volume] in Serum or Plasma 2024-09-27 10:35:07 [facility] 115 mg/dL ([facility]) Result panel 492 Lactate [Mass/volume] in Serum or Plasma 2024-09-27 10:35:07 [facility] 2.2 mmol/L ([facility]) Result panel 493 Calcium [Mass/volume] in Serum or Plasma 2024-09-27 10:35:07 [facility] 8.9 mg/dL ([facility]) Result panel 494 Bilirubin.total [Mass/volume ] in Serum or Plasma 2024-09-27 10:35:07 [facility] 2.1 mg/dL (missing) Result panel 495 Aspartate aminotransferase [Enzymatic activity/volume] in Serum or Plasma 2024-09-27 10:35:07 [facility] 38 IU/L ([facility]) Result panel 496 Alanine aminotransferase [Enzymatic activity/volume] in Serum or Plasma 2024-09-27 10:35:07 [facility] 29 IU/L ([facility]) Result panel 497 Alkaline phosphatase [Enzyma tic activity/volume] in Serum or Plasma 2024-09-27 10:35:07 [facility] 120 U/L ([facility] ing) Result panel 498 Protein total ser/plas 2024-09-27 10:35:07 [facility] 8 .0 g/dL (missing) Result panel 499 Albumin [Mass/volume] in Ser um or Plasma 2024-09-27 10:35:07 [facility] 4.5 g/dL (miss ing) Result panel 500 Globulin [Mass/volume] in Serum by calculation 2024-09-27 10:35:07 [facility] 3.5 g/dL (missing) Result panel 501 Albumin/Globulin [Mass Ratio] in Serum or Plasma 2024-09-27 10:35:07 [facility] 1.3 (miss ing) (missing) Result panel 502 Procalcitonin [Mass/volume] in Serum or Plasma 2024-09-27 10:35:07 [facility] 0.103 ng/mL (missing) Result panel 503 Blood culture 2024-09-27 10:50:07 [facility] NO G ROWTH AFTER 5 DAYS (missing) (missing) Result panel 504 Venous blood pH measurement 2024-09-27 10:53:07 [facility] 7.42 (missing) (miss ing) Result panel 505 Venous blood partial pressur e of carbon dioxide measurement 2024-09-27 10:53:07 [facility] 33.3 m mHg (missing) Result panel 506 Venous blood partial pressur e of oxygen measurement 2024-09-27 10:53:07 [facility] 30 mmHg (missing) Result panel 507 Venous blood oxygen saturation 2024-09-27 10:53:07 [facility] 59 % (missing) Result panel 508 Venous blood pH measurement 2024-09-27 10:53:07 [facility] 7.42 (missing) (miss ing) Result panel 509 Venous blood partial pressur e of carbon dioxide measurement 2024-09-27 10:53:07 [facility] 33.3 m mHg (missing) Result panel 510 Venous blood partial pressur e of oxygen measurement 2024-09-27 10:53:07 [facility] 30 mmHg (missing) Result panel 511 Venous blood oxygen saturation 2024-09-27 10:53:07 [facility] 59 % (missing) Result panel 512 Venous blood pH measurement 2024-09-27 10:53:07 [facility] 7.42 (missing) (miss ing) Result panel 513 Venous blood partial pressur e of carbon dioxide measurement 2024-09-27 10:53:07 [facility] 33.3 m mHg (missing) Result panel 514 Venous blood partial pressur e of oxygen measurement 2024-09-27 10:53:07 [facility] 30 mmHg (missing) Result panel 515 Venous blood oxygen saturation 2024-09-27 10:53:07 [facility] 59 % (missing) Result panel 516 Base Excess VBG 2024-09-27 [facility]/l (missing) Total CO2 VBG 2024-09-27 10:57 [facility] 20 mmol /l (missing) HCO3 VBG 2024-09-27 10:57 [facility] 21 mmol/l (missing) PO2 VBG 2024-09-27 10:57 [facility] 30 mmhg (missing) PCO2 VBG 2024-09-27 10:57 [facility] 33.3 mmhg (missing) Fractionated Inspired Oxygen 2024-09-27 10:57 [facility] 40.0 % % (missing) Oxygen Saturation VBG 2024-09-27 10:57 [facility] % (missing) pH VBG 2024-09-27 10:57 [facility] 7.42 (missing ) (missing) Result panel 517 X-ray report 2024-09-27 11:05 [facility] (missing) (mis sing) (missing) Result panel 518 X-ray report 2024-09-27 11:05 [facility] (missing) (mis sing) (missing) Result panel [...] % (missing) Neutrophils Absolute Auto 2024-09-27 11:16 [facility] 86 00 /ul (missing) Mean Corpuscular Volume 2024-09-27 11:16 [facility] 87.4 fl (missing) Result panel 520 INR 2024-09-27 11:19 [facility] 2.8 (missing ) (missing) Prothrombin Time 2024-09-27 11:19 [facility] 30.8 s econds Comment If patient is on warfarin Result panel 521 Creatinine 2024-09-27 11:27 [facility] 1.27 mg/dl (missing) Albumin Globulin Ratio 2024-09-27 11:27 [facility] 1.3 (missing) (missing) Chloride 2024-09-27 11:27 [facility] 106 mmol/l (missing) Glucose 2024-09-27 11:27 [facility] 115 mg/dl (missing) Alkaline Phosphatase 2024-09-27 11:27 [facility] 120 u/l (missing) Sodium 2024-09-27 11:27 [facility] 139 mmol/l Physician Instructions if pt has history of CHF BUN Creatinine Ratio 2024-09-27 11:27 [facility] 14.2 (missing) (missing) Blood Urea Nitrogen 2024-09-27 11:27 [facility] 18 mg/dl (missing) Carbon Dioxide 2024-09-27 11:27 [facility] 19 mmol/l (missing) Bilirubin Total 2024-09-27 11:27 [facility] 2.1 mg/dl (missing) Lactate (Lactic Acid) 2024-09-27 11:27 [facility] 2.2 mmol/l Yes/No query for Sepsis Lactate Rule Y Alanine Aminotransferase 2024-09-27 11:27 [facility] 29 iu/l (missing) Globulin 2024-09-27 11:27 [facility] 3.5 g/dl (missing) Aspartate Aminotransferase 2024-09-27 11:27 [facility] 38 iu/l (missing) Albumin 2024-09-27 11:27 [facility] 4.5 g/dl (missing) Potassium 2024-09-27 11:27 [facility] 4.5 mmol/l (missing) Estimated Glomerular Filt Rate 2024-09-27 11:27 [facility] 55 ml/min Reported eGFR is based the CKD-EPI 2020 equation that does not use a race coefficient. An eGFR below 60 mL/min/1.73m2 suggests that some kidney damage has occurred, and indicative of chronic kidney disease if persisting greater than 3 months. An eGFR less than 15 is indicative of kidney failure. Total Protein 2024-09-27 11:27 [facility] 8.0 g/dl (missing) Calcium 2024-09-27 11:27 [facility] 8.9 mg/dl (missing) Result panel 522 Troponin I 2024-09-27 11:34 [facility] < 0.012 ng/ml Physician Instructions if pt has history of CHF Ortho Troponin-I Recommended Upper Reference Range & Cutoff The 99th Percentile URL: 0.034 ng/mL AMI Diagnostic Cutoff: 0.120 ng/mL Creatinine 2024-09-27 11:34 [facility] 1.27 mg/dl (missing) Albumin Globulin Ratio 2024-09-27 11:34 [facility] 1.3 (missing) (missing) Chloride 2024-09-27 11:34 [facility] 106 mmol/l (missing) Glucose 2024-09-27 11:34 [facility] 115 mg/dl (missing) Alkaline Phosphatase 2024-09-27 11:34 [facility] 120 u/l (missing) Sodium 2024-09-27 11:34 [facility] 139 mmol/l Physician Instructions if pt has history of CHF BUN Creatinine Ratio 2024-09-27 11:34 [facility] 14.2 (missing) (missing) Blood Urea Nitrogen 2024-09-27 11:34 [facility] 18 mg/dl (missing) Carbon Dioxide 2024-09-27 11:34 [facility] 19 mmol/l (missing) Bilirubin Total 2024-09-27 11:34 [facility] 2.1 mg/dl (missing) NT-proBNP (BNP-Adult 18+) 2024-09-27 11:34 [facility] 2300 pg/ml Physician Instructions if pt has [...] or exclude HF. Alanine Aminotransferase 2024-09-27 11:34 [facility] 29 iu/l (missing) Globulin 2024-09-27 11:34 [facility] 3.5 g/dl (missing) Aspartate Aminotransferase 2024-09-27 11:34 [facility] 38 iu/l (missing) Albumin 2024-09-27 11:34 [facility] 4.5 g/dl (missing) Potassium 2024-09-27 11:34 [facility] 4.5 mmol/l (missing) Estimated Glomerular Filt Rate 2024-09-27 11:34 [facility] 55 ml/min Reported eGFR is based the CKD-EPI 2020 equation that does not use a race coefficient. An eGFR below 60 mL/min/1.73m2 suggests that some kidney damage has occurred, and indicative of chronic kidney disease if persisting greater than 3 months. An eGFR less than 15 is indicative of kidney failure. Total Protein 2024-09-27 11:34 [facility] 8.0 g/dl (missing) Calcium 2024-09-27 11:34 [facility] [employer] 8.9 mg/dl (missing) Result panel 523 Lactate [Mass/volume] in Serum or Plasma 2024-09-27 13:25:07 [facility] 1.9 mmol/L ([facility]) Result panel 524 Lactate [Mass/volume] in Serum or Plasma 2024-09-27 13:25:07 [facility] 1.9 mmol/L (formerly [facility]) Result panel 525 Procalcitonin 2024-09-27 13:28 [facility] 0.103 ng/m l ADD ON TO C132 [...] Lactate 2HR (Lactic Acid Rflx) 2024-09-27 13:54 [facility] 1.9 mmol/l (missing) Result panel 527 Adenovirus DNA [Presence] in Nasopharynx by ERICK with non-probe detection 2024-09-27 15:00:07 [facility] Not detected (missing) (missing) Result panel 528 SARS-CoV-2 (COVID-19) RNA [Presence] in Nasopharynx by ERICK with non-probe detection 2024-09-27 15:00:07 [facility] Not detected (missing) (missing) Result panel 529 Human coronavirus 229E RNA [Presence] in Nasopharynx by ERICK with non-probe detection 2024-09-27 15:00:07 [facility] Not detected (missing) (missing) Result panel 530 Human coronavirus HKU1 RNA [Presence] in Nasopharynx by ERICK with non-probe detection 2024-09-27 15:00:07 [facility] Not detected (missing) (missing) Result panel 531 Human coronavirus NL63 RNA [Presence] in Nasopharynx by ERICK with non-probe detection 2024-09-27 15:00:07 [facility] Not detected (missing) (missing) Result panel 532 Human coronavirus OC43 RNA [Presence] in Nasopharynx by ERICK with non-probe detection 2024-09-27 15:00:07 [facility] Not detected (missing) (missing) Result panel 533 Human metapneumovirus RNA [Presence] in Nasopharynx by ERICK with non-probe detection 2024-09-27 15:00:07 [facility] Not detected (missing) (missing) Result panel 534 Rhinovirus+Enterovirus RNA [Presence] in Nasopharynx by ERICK with non-probe detection 2024-09-27 15:00:07 [facility] Not detected (missing) (missing) Result panel 535 Influenza virus A RNA [Presence] in Nasopharynx by ERICK with non-probe detection 2024-09-27 15:00:07 [facility] Not detected (missing) (missing) Result panel 536 Influenza virus B RNA [Presence] in Nasopharynx by ERICK with non-probe detection 2024-09-27 15:00:07 [facility] Not detected (missing) (missing) Result panel 537 Parainfluenza virus 1 RNA [Presence] in Nasopharynx by ERICK with non-probe detection 2024-09-27 15:00:07 [facility] Not detected (missing) (missing) Result panel 538 Parainfluenza virus 2 RNA [Presence] in Nasopharynx by ERICK with non-probe detection 2024-09-27 15:00:07 [facility] Not detected (missing) (missing) Result panel 539 Parainfluenza virus 3 RNA [Presence] in Nasopharynx by ERICK with non-probe detection 2024-09-27 15:00:07 [facility] Not detected (missing) (missing) Result panel 540 Parainfluenza virus 4 RNA [Presence] in Nasopharynx by ERICK with non-probe detection 2024-09-27 15:00:07 [facility] Not detected (missing) (missing) Result panel 541 Respiratory syncytial virus RNA [Presence] in Nasopharynx by ERICK with non-probe detec 2024-09-27 15:00:07 [facility] Not detected (missing) (missing) Result panel 542 Bordetella pertussis.pertussis toxin promoter region [Presence] in Nasopharynx by ERICK 2024-09-27 15:00:07 [facility] Not detected (missing) (missing) Result panel 543 Chlamydophila pneumoniae DNA [Presence] in Nasopharynx by ERICK with non-probe detectio 2024-09-27 15:00:07 [facility] Not detected (missing) (missing) Result panel 544 Mycoplasma pneumoniae DNA [Presence] in Nasopharynx by ERICK with non-probe detection 2024-09-27 15:00:07 [facility] Not detected (missing) (missing) Result panel 545 Adenovirus DNA [Presence] in Nasopharynx by ERICK with non-probe detection 2024-09-27 15:00:07 [facility] Not detected (missing) (missing) Result panel 546 SARS-CoV-2 (COVID-19) RNA [Presence] in Nasopharynx by ERICK with non-probe detection 2024-09-27 15:00:07 [facility] Not detected (missing) (missing) Result panel 547 Human coronavirus 229E RNA [Presence] in Nasopharynx by ERICK with non-probe detection 2024-09-27 15:00:07 [facility] Not detected (missing) (missing) Result panel 548 Human coronavirus HKU1 RNA [Presence] in Nasopharynx by ERICK with non-probe detection 2024-09-27 15:00:07 [facility] Not detected (missing) (missing) Result panel 549 Human coronavirus NL63 RNA [Presence] in Nasopharynx by ERICK with non-probe detection 2024-09-27 15:00:07 [facility] Not detected (missing) (missing) Result panel 550 Human coronavirus OC43 RNA [Presence] in Nasopharynx by ERICK with non-probe detection 2024-09-27 15:00:07 [facility] Not detected (missing) (missing) Result panel 551 Human metapneumovirus RNA [Presence] in Nasopharynx by ERICK with non-probe detection 2024-09-27 15:00:07 [facility] Not detected (missing) (missing) Result panel 552 Rhinovirus+Enterovirus RNA [Presence] in Nasopharynx by ERICK with non-probe detection 2024-09-27 15:00:07 [facility] Not detected (missing) (missing) Result panel 553 Influenza virus A RNA [Presence] in Nasopharynx by ERICK with non-probe detection 2024-09-27 15:00:07 [facility] Not detected (missing) (missing) Result panel 554 Influenza virus B RNA [Presence] in Nasopharynx by ERICK with non-probe detection 2024-09-27 15:00:07 [facility] Not detected (missing) (missing) Result panel 555 Parainfluenza virus 1 RNA [Presence] in Nasopharynx by ERICK with non-probe detection 2024-09-27 15:00:07 [facility] Not detected (missing) (missing) Result panel 556 Parainfluenza virus 2 RNA [Presence] in Nasopharynx by ERICK with non-probe detection 2024-09-27 15:00:07 [facility] Not detected (missing) (missing) Result panel 557 Parainfluenza virus 3 RNA [Presence] in Nasopharynx by ERICK with non-probe detection 2024-09-27 15:00:07 [facility] Not detected (missing) (missing) Result panel 558 Parainfluenza virus 4 RNA [Presence] in Nasopharynx by ERICK with non-probe detection 2024-09-27 15:00:07 [facility] Not detected (missing) (missing) Result panel 559 Respiratory syncytial virus RNA [Presence] in Nasopharynx by ERICK with non-probe detec 2024-09-27 15:00:07 [facility] Not detected (missing) (missing) Result panel 560 Bordetella pertussis.pertussis toxin promoter region [Presence] in Nasopharynx by ERICK 2024-09-27 15:00:07 [facility] Not detected (missing) (missing) Result panel 561 Chlamydophila pneumoniae DNA [Presence] in Nasopharynx by ERICK with non-probe detectio 2024-09-27 15:00:07 [facility] Not detected (missing) (missing) Result panel 562 Mycoplasma pneumoniae DNA [Presence] in Nasopharynx by ERICK with non-probe detection 2024-09-27 15:00:07 [facility] Not detected (missing) (missing) Result panel [...] 17:14 [facility] Not Detected (missing) The [employer] SARS-CoV-2 test is a rapid, real-time RT-PCR [...] observations, patient history, and epidemiological information. The [employer] SARS-CoV-2 test is only for use under the Food and Drug Administrations Emergency Use Authorization. Result panel 564 Emergency department note 2024-09-27 17:20 [facility] (missing) (missing) (missing ) Result panel 565 Basophils Absolute Auto 2024-09-28 05:36 [facility] 0 /ul (missing) Eosinophils Absolute Auto 2024-09-28 05:36 [facility] 0 /ul (missing) Eosinophils Percent Auto 2024-09-28 05:36 [facility] 0.0 % (missing) Basophils Percent Auto 2024-09-28 05:36 [facility] 0.3 % (missing) Monocytes Percent Auto 2024-09-28 05:36 [facility] 1.0 % (missing) Monocytes Absolute Auto 2024-09-28 05:36 [facility] 100 /ul (missing) Red Cell Distribution Width 2024-09-28 05:36 [facility] 14.8 % (missing) Hemoglobin 2024-09-28 05:36 [facility] 15.2 g/dl (missing) Platelet Count 2024-09-28 05:36 [facility] 272 x10 3/ul (missing) Mean Corpuscular Hemoglobin 2024-09-28 05:36 [facility] 30.0 pg (missing) Mean Corpuscular HGB Conc 2024-09-28 05:36 [facility] 34 .2 % (missing) Hematocrit 2024-09-28 05:36 [facility] 44.4 % (missing) Red Blood Cell Count 2024-09-28 05:36 [facility] 5.07 x10 6/ul (missing) Lymphocytes Absolute Auto 2024-09-28 05:36 [facility] 60 0 /ul (missing) Lymphocytes Percent Auto 2024-09-28 05:36 [facility] 7.0 % (missing) Neutrophils Absolute Auto 2024-09-28 05:36 [facility] 83 00 /ul (missing) Mean Corpuscular Volume 2024-09-28 05:36 [facility] 87.5 fl (missing) White Blood Cell Count 2024-09-28 05:36 [facility] 9.1 x10 3/ul (missing) Neutrophils Percent Auto 2024-09-28 05:36 [facility] 91. 7 % (missing) Result panel 566 INR 2024-09-28 05:38 [facility] 2.8 (missing ) (missing) Prothrombin Time 2024-09-28 05:38 [facility] 31.0 s econds (missing) Result panel 567 Creatinine 2024-09-28 05:42 [facility] 1.50 mg/dl (missing) Chloride 2024-09-28 05:42 [facility] 106 mmol/l (missing) Sodium 2024-09-28 05:42 [facility] 138 mmol/l (missing) Glucose 2024-09-28 05:42 [facility] 169 mg/dl (missing) Carbon Dioxide 2024-09-28 05:42 [facility] 18 mmo l/l (missing) BUN Creatinine Ratio 2024-09-28 05:42 [facility] 20.0 (missing) (missing) Blood Urea Nitrogen 2024-09-28 05:42 [facility] 30 mg/dl (missing) Potassium 2024-09-28 05:42 [facility] 4.5 mmol/l (missing) Estimated Glomerular Filt Rate 2024-09-28 05:42 [facility] 45 ml/min Reported eGFR is based the CKD-EPI 2020 equation that does not use a race coefficient. An eGFR below 60 mL/min/1.73m2 suggests that some kidney damage has occurred, and indicative of chronic kidney disease if persisting greater than 3 months. An eGFR less than 15 is indicative of kidney failure. Calcium 2024-09-28 05:42 [facility] 8.9 mg/dl (missing) Result panel 568 Blood Culture 2024-09-28 11:01 [facility] (missing) (mis sing) (missing) Blood Culture 2024-09-28 11:01 [facility] NO GROWT H AFTER 24 HOURS (missing) (missing) Result panel 569 White blood cell count 2024-09-29 07:10:07 [facility] 1 9.0 X10^3/uL (missing) Result panel 570 Automated neutrophil % 2024-09-29 07:10:07 [facility] 9 2.0 % (missing) Result panel 571 Automated lymphocyte % 2024-09-29 07:10:07 [facility] 3 .1 % (missing) Result panel 572 Automated monocyte % 2024-09-29 07:10:07 [facility] 4.8 % (missing) Result panel 573 Automated eosinophil % 2024-09-29 07:10:07 [facility] 0 .0 % (missing) Result panel 574 Automated basophil % 2024-09-29 07:10:07 [facility] 0.1 % (missing) Result panel 575 Absolute neutrophil count 2024-09-29 07:10:[address] [facility] l [address] /uL (missing) Result panel 576 Absolute lymphocyte count 2024-09-29 07:10:[address] [facility] l 600 /uL (missing) Result panel 577 Automated blood monocyte count 2024-09-29 07:10:07 [facility] 900 /uL (missing) Result panel 578 [facility]24-09-29 [facility] Result panel 579 Automated basophil count 2024-09-29 07:10:07 [facility] 0 /uL (missing) Result panel 580 Red blood cell count 2024-09-29 07:10:07 [facility] 4.8 8 X10^6/uL (missing) Result panel 581 Serum prothrombin time 2024-09-29 07:10:07 [facility] 3 5.4 SECONDS (missing) Result panel 582 INR in Platelet poor plasma by Coagulation assay 2024-09-29 07:10:07 [facility] 3.2 (missing) (miss ing) Result panel 583 Sodium [Moles/volume] in Serum or Plasma 2024-09-29 07:10:07 [facility] 136 mmol/L (formerly [facility]) Result panel 584 White blood cell count 2024-09-29 07:10:07 [facility] 1 9.0 X10^3/uL (missing) Result panel 585 Red blood cell count 2024-09-29 07:10:07 [facility] 4.8 8 X10^6/uL (missing) Result panel 586 Hemoglobin 2024-09-29 07:10:07 [facility] 14.4 g/d L (missing) Result panel 587 Hematocrit 2024-09-29 07:10:07 [facility] 42.7 % (missing) Result panel 588 MCV (mean corpuscular volume ) determination 2024-09-29 07:10:07 [facility] 87.5 fL (mis sing) Result panel 589 Mean corpuscular hemoglobin (MCH) determination 2024-09-29 07:10:07 [facility] 29.6 PG (missing) Result panel 590 Mean corpuscular hemoglobin concentration (MCHC) determination 2024-09-29 07:10:07 [facility] 33.8 % (mis sing) Result panel 591 Red cell distribution width determination 2024-09-29 07:10:07 [facility] 14.7 % (mis sing) Result panel 592 Platelet count 2024-09-29 07:10:07 [facility] 267 X10^3/uL (missing) Result panel 593 Potassium [Moles/volume] in Serum or Plasma 2024-09-29 07:10:07 [facility] 4.3 mmol/L (formerly [facility]) Result panel 594 Automated neutrophil % 2024-09-29 07:10:07 [facility] 9 2.0 % (missing) Result panel 595 Automated lymphocyte % 2024-09-29 07:10:07 [facility] 3 .1 % (missing) Result panel 596 Automated monocyte % 2024-09-29 07:10:07 [facility] 4.8 % (missing) Result panel 597 Automated eosinophil % 2024-09-29 07:10:07 [facility] 0 .0 % (missing) Result panel 598 Automated basophil % 2024-09-29 07:10:07 [facility] 0.1 % (missing) Result panel 599 Absolute neutrophil count 2024-09-29 07:10:[address] [facility] l [address]74 /uL (missing) Result panel 600 Absolute lymphocyte count 2024-09-29 07:10:[address] [facility] l 600 /uL (missing) Result panel 601 Automated blood monocyte count 2024-09-29 07:10:07 [facility] 900 /uL (missing) Result panel 602 Automated eosinophil count 2024-09-29 [facility] Result panel 603 Automated basophil count 2024-09-29 07:10:07 [facility] 0 /uL (missing) Result panel 604 Chloride [Moles/volume] in Serum or Plasma 2024-09-29 07:10:07 [facility] 104 mmol/L (formerly [facility]) Result panel 605 Serum prothrombin time 2024-09-29 07:10:07 [facility] 3 5.4 SECONDS (missing) Result panel 606 INR in Platelet poor plasma by Coagulation assay 2024-09-29 07:10:07 [facility] 3.2 (missing) (miss ing) Result panel 607 Sodium [Moles/volume] in Serum or Plasma 2024-09-29 07:10:07 [facility] 136 mmol/L (formerly [facility]) Result panel 608 Potassium [Moles/volume] in Serum or Plasma 2024-09-29 07:10:07 [facility] 4.3 mmol/L (formerly [facility]) Result panel 609 Chloride [Moles/volume] in Serum or Plasma 2024-09-29 07:10:07 [facility] 104 mmol/L (formerly [facility]) Result panel 610 Carbon dioxide, total [Moles/volume] in Serum or Plasma 2024-09-29 07:10:07 [facility] 19 mmol/L (miss ing) Result panel 611 Urea nitrogen [Mass/volume] in Serum or Plasma 2024-09-29 07:10:07 [facility] 47 mg/dL ([facility]) Result panel 612 Creatinine [Mass/volume] in Serum or Plasma 2024-09-29 07:10:07 [facility] 1.51 mg/dL (formerly [facility]) Result panel 613 Glomerular filtration rate (GFR) estimation 2024-09-29 07:10:07 [facility] 45 mL/min ( missing) Result panel 614 BUN/creatinine ratio 2024-09-29 07:10:07 [facility] 31. 1 (missing) (missing) Result panel 615 Carbon dioxide, total [Moles/volume] in Serum or Plasma 2024-09-29 07:10:07 [facility] 19 mmol/L (miss ing) Result panel 616 Glucose [Mass/volume] in Serum or Plasma 2024-09-29 07:10:07 [facility] 153 mg/dL ( issing) Result panel 617 Calcium [Mass/volume] in Serum or Plasma 2024-09-29 07:10:07 [facility] 9.1 mg/dL [facility] Result panel 618 Urea nitrogen [Mass/volume] in Serum or Plasma 2024-09-29 07:10:07 [facility] 47 mg/dL (formerly [facility]) Result panel 619 Creatinine [Mass/volume] in Serum or Plasma 2024-09-29 07:10:07 [facility] 1.51 mg/dL (formerly [facility]) Result panel 620 Glomerular filtration rate (GFR) estimation 2024-09-29 07:10:07 [facility] 45 mL/min ( missing) Result panel 621 BUN/creatinine ratio 2024-09-29 07:10:07 [facility] 31. 1 (missing) (missing) Result panel 622 Hemoglobin 2024-09-29 07:10:07 [facility] 14.4 g/d L (missing) Result panel 623 Glucose [Mass/volume] in Serum or Plasma 2024-09-29 07:10:07 [facility] 153 mg/dL ([facility] Result panel 624 Calcium [Mass/volume] in Serum or Plasma 2024-09-29 07:10:07 [facility] 9.1 mg/dL (formerly [facility]) Result panel 625 Hematocrit 2024-09-29 07:10:07 [facility] 42.7 % (missing) Result panel 626 MCV (mean corpuscular volume ) determination 2024-09-29 07:10:07 [facility] 87.5 fL (mis sing) Result panel 627 Mean corpuscular hemoglobin (MCH) determination 2024-09-29 07:10:07 [facility] 29.6 PG (missing) Result panel 628 Mean corpuscular hemoglobin concentration (MCHC) determination 2024-09-29 07:10:07 [facility] 33.8 % (mis sing) Result panel 629 Red cell distribution width determination 2024-09-29 07:10:07 [facility] 14.7 % (mis sing) Result panel 630 Platelet count 2024-09-29 07:10:07 [facility] 267 X10^3/uL (missing) Result panel 631 Basophils Absolute Auto 2024-09-29 07:18 [facility] 0 /ul (missing) Eosinophils Absolute Auto 2024-09-29 07:18 [facility] 0 /ul (missing) Eosinophils Percent Auto 2024-09-29 07:18 [facility] 0.0 % (missing) Basophils Percent Auto 2024-09-29 07:18 [facility] 0.1 % (missing) Hemoglobin 2024-09-29 07:18 [facility] 14.4 g/dl (missing) Red Cell Distribution Width 2024-09-29 07:18 [facility] 14.7 % (missing) Neutrophils Absolute Auto 2024-09-29 07: [facility] [address] /ul (missing) White Blood Cell Count 2024-09-29 07:18 [facility] 19.0 x10 3/ul Delta: 9. 1 on 09/28/24-0510 Platelet Count 2024-09-29 07:18 [facility] 267 x10 3/ul (missing) Mean Corpuscular Hemoglobin 2024-09-29 07:18 [facility] 29.6 pg (missing) Lymphocytes Percent Auto 2024-09-29 07:18 [facility] 3.1 % (missing) Mean Corpuscular HGB Conc 2024-09-29 07:18 [facility] 33.8 % (missing) Monocytes Percent Auto 2024-09-29 07:18 [facility] 4.8 % (missing) Red Blood Cell Count 2024-09-29 07: [facility] 4.88 x10 6/ul (missing) Hematocrit 2024-09-29 07:18 [facility] 42.7 % (missing) Lymphocytes Absolute Auto 2024-09-29 07:18 [facility] 600 /ul (missing) Mean Corpuscular Volume 2024-09-29 07:18 [facility] 87.5 fl (missing) Monocytes Absolute Auto 2024-09-29 07:18 [facility] 900 /ul (missing) Neutrophils Percent Auto 2024-09-29 07:18 [facility] 92.0 % (missing) Result panel 632 INR 2024-09-29 07:23 [facility] 3.2 (missing ) (missing) Prothrombin Time 2024-09-29 07:23 [facility] 35.4 s econds (missing) Result panel 633 Creatinine 2024-09-29 07:29 [facility] 1.51 mg/dl (missing) Chloride 2024-09-29 07:29 [facility] 104 mmol/l (missing) Sodium 2024-09-29 07:29 [facility] 136 mmol/l (missing) Glucose 2024-09-29 07: [facility] 153 mg/dl (missing) Carbon Dioxide 2024-09-29 07:29 [facility] 19 mmo l/l (missing) BUN Creatinine Ratio 2024-09-29 07:29 [facility] 31.1 (missing) (missing) Potassium 2024-09-29 07:29 [facility] 4.3 mmol/l (missing) Estimated Glomerular Filt Rate 2024-09-29 07:29 [facility] 45 ml/min Reported eGFR is based the CKD-EPI 2020 equation that does not use a race coefficient. An eGFR below 60 mL/min/1.73m2 suggests that some kidney damage has occurred, and indicative of chronic kidney disease if persisting greater than 3 months. An eGFR less than 15 is indicative of kidney failure. Blood Urea Nitrogen 2024-09-29 07:29 [facility] 47 mg/dl (missing) Calcium 2024-09-29 07:29 [facility] 9.1 mg/dl (missing) Result panel 634 Blood Culture 2024-09-29 11:01 [facility] (missing) (mis sing) (missing) Blood Culture 2024-09-29 11:01 [facility] NO GROWT H AFTER 48 HOURS (missing) (missing) Result panel 635 Blood Culture 2024-09-30 11:01 [facility] (missing) (mis sing) (missing) Blood Culture 2024-09-30 11:01 [facility] NO GROWT H AFTER 72 HOURS (missing) (missing) Result panel 636 Blood Culture 2024-10-01 11:01 [facility] ([facility]) (mis sing) (missing) Blood Culture 2024-10-01 11:01 [facility] NO GROWT H AFTER 4 DAYS (missing) (missing) Result panel 637 Blood Culture 2024-10-02 11:01 [facility] (missing) (mis sing) (missing) Blood Culture 2024-10-02 11:01 [facility] NO GROWT H AFTER 5 DAYS (missing) (missing) Result panel 638 Blood Culture 2024-10-02 11:02 [facility] (missing) (mis sing) (missing) Blood Culture 2024-10-02 11:02 [facility] NO GROWT H AFTER 5 DAYS (missing) (missing) Result panel 639 VBG BASE EXCESS 2024-11-14 18:00 [facility] -3.5 mmol/l (missing) NUCLEATED RED BLOOD CELLS AUTO 2024-11-14 18:00 [facility] 0.0 /100wbc (missing) BASOPHILS # (AUTO) 2024-11-14 18:00 [facility] 0.0 10 3/ul (missing) NRBC ABSOLUTE COUNT (AUTO) 2024-11-14 18:00 [facility] 0.00 x10 3/ul (missing) EOSINOPHILS # (AUTO) 2024-11-14 18:00 [facility] 0.1 10 3/ul (missing) PROCALCITONIN 2024-11-14 18:00 [facility] 0.16 ng/ml PCT Concentration (ng/mL) Children >72hrs [...] to 24hours. LYMPHOCYTES # (AUTO) 2024-11-14 18:00 [facility] 1.1 10 3/ul (missing) ALBUMIN/GLOBULIN RATIO 2024-11-14 18:00 [facility] 1.2 (missing) (missing) CREATININE 2024-11-14 18:00 [facility] 1.4 mg/dl As of August 2022 testing method has changed, this may include reference ranges. MONOCYTES # (AUTO) 2024-11-14 18:00 [facility] 1.5 10 3/ul (missing) BILIRUBIN,TOTAL 2024-11-14 18:00 [facility] 1.9 mg/dl As of August 2022 testing method has changed, this may include reference ranges. ANION GAP 2024-11-14 18:00 [facility] 10.0 (missing) (missing) NEUTROPHILS # (AUTO) 2024-11-14 18:00 [facility] 10.3 10 3/ul (missing) MEAN PLATELET VOLUME 2024-11-14 18:00 [facility] 10.7 fl (missing) ALKALINE PHOSPHATASE 2024-11-14 18:00 [facility] 100 iu/l As of August 2022 testing method has changed, this may include reference ranges. CHLORIDE 2024-11-14 18:00 [facility] 103 mmol/l As of August 2022 testing method has changed, this may include reference ranges. WHITE BLOOD COUNT 2024-11-14 18:00 [facility] 13.1 x10 3/ul (missing) SODIUM 2024-11-14 18:00 [facility] 137 mmol/l (missing) HGB - HEMOGLOBIN 2024-11-14 18:00 [facility] 14.9 g/dl (missing) GLUCOSE 2024-11-14 18:00 [facility] 147 mg/dl As of August 2022 testing method has changed, this may include reference ranges. RED CELL DISTRIBUTION WIDTH 2024-11-14 18:00 [facility] 16.0 % (missing) ALT ALANINE AMINOTRANSFERASE 2024-11-14 18:00 [facility] 18 iu/l As of August 2022 testing method has changed, this may include reference ranges. PLT - PLATELET COUNT 2024-11-14 18:00 [facility] 193 10 3/ul (missing) VBG HCO3 2024-11-14 18:00 [facility] 20.4 mmol/l (missing) VBG TOTAL CO2 2024-11-14 18:00 [facility] 21.3 mmol/l (missing) AST ASPARTATE AMINOTRANSFERASE 2024-11-14 18:00 [facility] 22 iu/l As of August 2022 testing method has changed, this may include reference ranges. BUN - BLOOD UREA NITROGEN 2024-11-14 18:00 [facility] 23 mg/dl As of August 2022 testing method has changed, this may include reference ranges. CARBON DIOXIDE - CO2 2024-11-14 18:00 [facility] 24 mmol/l As of August 2022 testing method has changed, this may include reference ranges. VBG PO2 2024-11-14 18:00 [facility] 27.2 mmhg (missing) VBG PCO2 2024-11-14 18:00 [facility] 28.0 mmhg (missing) MEAN CORPUSCULAR HEMOGLOBIN 2024-11-14 18:00 [facility] 28.9 pg (missing) GLOBULIN 2024-11-14 18:00 [facility] 3.3 g/dl (missing) POTASSIUM 2024-11-14 18:00 [facility] 3.6 mmol/l As of August 2022 testing method has changed, this may include reference ranges. ALBUMIN 2024-11-14 18:00 [facility] 3.8 g/dl As of August 2022 testing method has changed, this may include reference ranges. TROPONIN I HIGH SENSITIVITY 2024-11-14 18:00 [facility] 30.0 ng/l Critical result TNIHS 30.0 pg/mL [...] POSITIVE. MEAN CORPUSCULAR HGB CONC 2024-11-14 18:00 [facility] 32.8 g/dl (missing) VBG OXYGEN SATURATION 2024-11-14 18: [facility] 35.0 % (missing) HCT - HEMATOCRIT 2024-11-14 18:00 [facility] 45.4 % (missing) GFR - MDRD 2024-11-14 18:00 [facility] 48 (missing) The IDMS-traceable MDRD Study Equation [...] April 2011. RED BLOOD COUNT 2024-11-14 18:00 [facility] 5.15 10 6/ul (missing) TOTAL PROTEIN 2024-11-14 18:00 [facility] 7.1 g/dl As of August 2022 testing method has changed, this may include reference ranges. VBG PH 2024-11-14 18:00 [facility] 7.466 (missing) (missing) CALCIUM 2024-11-14 18:00 [facility] 8.7 mg/dl As of August 2022 testing method has changed, this may include reference ranges. BNP - B-NATRIURETIC PEPTIDE 2024-11-14 18:00 [facility] 804 pg/ml (missing) MEAN CORPUSCULAR VOLUME 2024-11-14 18:00 [facility] 88.2 fl (missing) Result panel 640 SARS-CoV-2 -RESP PCR PANEL 2024-11-14 19:35 [facility] NOT DETECTED (missing) A negative test result for this test indicates that SARS-CoV-2 RNA was not present in the specimen above the limit of detection. Testing performed on the [employer] RP2.1 Panel, a multiplexed nucleic acid repiratory [...] INFLUENZA A- RESP PCR PANEL 2024-11-14 19:35 [facility] NOT DETECTED (missing) Influenza A including subtypes H1, H3, and H1-2009 not detected by the [employer] RP2.1 Panel, a multiplexed nucleic acid test intended for the simultaneous qualitative detection and differentiation of nucleic acids from multiple viral and bacterial respiratory organisms. B. PARAPERTUSSIS- RESP PCR VIZCARRA 2024-11-14 19:35 [facility] NOT DETECTED (missing) Negative results for this organism do not preclude infection with this organism and may require additional laboratory testing (e.g., bacterial and viral culture, immunofluorescence, and radiography) when evaluating a patient with possible respiratory tract infection. B. PERTUSSIS- RESP PCR PANEL 2024-11-14 19:35 [facility] NOT DETECTED (missing) Negative results for this organism do not preclude infection with this organism and may require additional laboratory testing (e.g., bacterial and viral culture, immunofluorescence, and radiography) when evaluating a patient with possible respiratory tract infection. C. PNEUMONIAE- RESP PCR PANEL 2024-11-14 19:35 [facility] NOT DETECTED (missing) Negative results for this organism do not preclude infection with this organism and may require additional laboratory testing (e.g., bacterial and viral culture, immunofluorescence, and radiography) when evaluating a patient with possible respiratory tract infection. M. PNEUMONIAE- RESP PCR PANEL 2024-11-14 19:35 [facility] NOT DETECTED (missing) Negative results for this organism do not preclude infection with this organism and may require additional laboratory testing (e.g., bacterial and viral culture, immunofluorescence, and radiography) when evaluating a patient with possible respiratory tract infection. CORONAVIRUS 229E-RESP PCR 2024-11-14 19:35 [facility] NOT DETECTED (missing) Negative results in the [...] not be detected by nasopharyngeal specimen. CORONAVIRUS [id number] PCR 2024-11-14 19:35 [facility] NOT DETECTED (missing) Negative results in the setting ofa respiratory illness may be due to infection with pathogens not detected by this test, or lower respiratory tract infection that may not be detected by nasopharyngeal specimen. CORONAVIRUS [id number] PCR 2024-11-14 19:35 [facility] NOT DETECTED [...] nasopharyngeal specimen. PARAINFLUENZA VIRUS 4 2024-11-14 19:35 [facility] NOT DETECTED (missing) Negative results in the setting ofa respiratory illness may be due to infection with pathogens not detected by this test, or lower respiratory tract infection that may not be detected by nasopharyngeal specimen. RHINOVIRUS/ENTEROVI ISABEL 2024-11-14 19:35 [facility] NOT DETECTED (missing) Negative results in the setting ofa respiratory illness may be due to infection with pathogens not detected by this test, or lower respiratory tract infection that may not be detected by nasopharyngeal specimen. RSV- RESP PCR PANEL 2024-11-14 19:35 [facility] NOT DETECTED (missing) Negative results in the setting ofa respiratory illness may be due to infection with pathogens not detected by this test, or lower respiratory tract infection that may not be detected by nasopharyngeal specimen. ADENOVIRUS - RESP PCR PANEL 2024-11-14 19:35 [facility] NOT DETECTED (missing) YES Negative results in the setting ofa respiratory illness may be due to infection with pathogens not detected by this test, or lower respiratory tract infection that may not be detected by nasopharyngeal specimen. Result panel 641 TROPONIN I HIGH SENSITIVITY 2024-11-14 20:33 [facility] 35.4 ng/l Critical result [facility] 35.4 pg/mL [...] panel 642 MRSA PCR,CCU ADMIT 2024-11-14 21:25 [facility] NEGATIVE (missing) (missing) Result panel 643 NUCLEATED RED BLOOD CELLS AUTO 2024-11-15 04:59 [facility] 0.0 /100wbc (missing) BASOPHILS # (AUTO) 2024-11-15 04:[facility] 0.0 10 3/ul (missing) EOSINOPHILS # (AUTO) 2024-11-15 04:59 [facility] 0.0 10 3/ul (missing) NRBC ABSOLUTE COUNT (AUTO) 2024-11-15 04:59 [facility] 0.00 x10 3/ul (missing) MONOCYTES # (AUTO) 2024-11-15 04:59 [facility] 0.2 10 3/ul (missing) LYMPHOCYTES # (AUTO) 2024-11-15 04:59 [facility] 0.7 10 3/ul (missing) CREATININE 2024-11-15 04:59 [facility] 1.2 mg/dl As of August 2022 testing method has changed, this may include reference ranges. MEAN PLATELET VOLUME 2024-11-15 04:59 [facility] 10.9 fl (missing) CHLORIDE 2024-11-15 04:59 [facility] 106 mmol/l As of August 2022 testing method has changed, this may include reference ranges. HGB - HEMOGLOBIN 2024-11-15 04:59 [facility] 13.8 g /dl (missing) SODIUM 2024-11-15 04:59 [facility] 137 mmol/l (missing) RED CELL DISTRIBUTION WIDTH 2024-11-15 04:59 [facility] 15.7 % (mi ssing) PLT - PLATELET COUNT 2024-11-15 04:59 [facility] 170 10 3/ul (missing) GLUCOSE 2024-11-15 04:59 [facility] 181 mg/dl As of August 2022 testing method has changed, this may include reference ranges. CARBON DIOXIDE - CO2 2024-11-15 04:59 [facility] 22 mmol/l As of Aug testing method has changed, this may include reference ranges. BUN - BLOOD UREA NITROGEN 2024-11-15 04:59 [facility] 24 mg/dl As of Aug testing method has changed, this may include reference ranges. MEAN CORPUSCULAR HEMOGLOBIN 2024-11-15 04:59 [facility] 29.4 pg (missing) INR 2024-11-15 04:59 [facility] 3.0 (missing ) Oral Anticoagulant Indication INR range Venous Thrombosis, P.E. 2.0 - 3.0 Mechanical Valve 2.5 - 3.5 PT - PROTHROMBIN TIME 2024-11-15 04:59 [facility] 33.0 khadra OTERO N MEAN CORPUSCULAR HGB CONC 2024-11-15 04:59 [facility] 33.4 g/dl (missing) POTASSIUM 2024-11-15 04:59 [facility] 4.0 mmol/l As of August 2022 testing method has changed, this may include reference ranges. RED BLOOD COUNT 2024-11-15 04:59 [facility] 4.70 10 6/ul (missing) HCT - HEMATOCRIT 2024-11-15 04:59 [facility] 41.3 % (missing) GFR - MDRD 2024-11-15 04:59 [facility] 57 (jaylon g) The IDMS-traceable MDRD Study [...] April 2011. NEUTROPHILS # (AUTO) 2024-11-15 04:59 [facility] 8.3 10 3/ul (missing) CALCIUM 2024-11-15 04:59 [facility] 8.5 mg/dl As of August 2022 testing method has changed, this may include reference ranges. MEAN CORPUSCULAR VOLUME 2024-11-15 04:59 [facility] 87.9 fl (missing) ANION GAP 2024-11-15 04:59 [facility] 9.0 (missing ) (missing) WHITE BLOOD COUNT 2024-11-15 04:59 [facility] 9.2 x10 3/ul (missing) Result panel 644 NUCLEATED RED BLOOD CELLS AUTO 2024-11-16 04:26 [facility] 0.0 /100wbc (missing) BASOPHILS # (AUTO) 2024-11-16 04:26 [facility] 0.0 10 3/ul (missing) EOSINOPHILS # (AUTO) 2024-11-16 04:26 [facility] 0.0 10 3/ul (missing) NRBC ABSOLUTE COUNT (AUTO) 2024-11-16 04:26 [facility] 0.00 x10 3/ul (missing) LYMPHOCYTES # (AUTO) 2024-11-16 04:26 [facility] 0.7 10 3/ul (missing) MONOCYTES # (AUTO) 2024-11-16 04:26 [facility] 0.8 10 3/ul (missing) CREATININE 2024-11-16 04: [facility] 1.2 mg/dl As of August 2022 testing method has changed, this may include reference ranges. CHLORIDE 2024-11-16 04: [facility] 106 mmol/l As of August 2022 testing method has changed, this may include reference ranges. MEAN PLATELET VOLUME 2024-11-16 04:26 [facility] 11.0 fl (missing) HGB - HEMOGLOBIN 2024-11-16 04: [facility] 12.7 g /dl (missing) SODIUM 2024-11-16 04:26 [facility] 138 mmol/l (missing) NEUTROPHILS # (AUTO) 2024-11-16 04:26 [facility] 14.6 10 3/ul (missing) RED CELL DISTRIBUTION WIDTH 2024-11-16 04:26 [facility] 15.7 % (mi ssing) WHITE BLOOD COUNT 2024-11-16 04:26 [facility] 16.2 x10 3/ul (missing) GLUCOSE 2024-11-16 04: [facility] 178 mg/dl As of August 2022 testing method has changed, this may include reference ranges. PLT - PLATELET COUNT 2024-11-16 04:26 [facility] 181 10 3/ul (missing) CARBON DIOXIDE - CO2 2024-11-16 04:26 [facility] 25 mmol/l As of Aug testing method has changed, this may include reference ranges. MEAN CORPUSCULAR HEMOGLOBIN 2024-11-16 04:26 [facility] 28.9 pg (missing) INR 2024-11-16 04: [facility] 3.7 (missing ) Oral Anticoagulant Indication INR range Venous Thrombosis, P.E. 2.0 - 3.0 Mechanical Valve 2.5 - 3.5 MEAN CORPUSCULAR HGB CONC 2024-11-16 04: [facility] 32.2 g/dl (missing) BUN - BLOOD UREA NITROGEN 2024-11-16 04: [facility] 34 mg/dl As of Aug testing method has changed, this may include reference ranges. HCT - HEMATOCRIT 2024-11-16 04: [facility] 39.5 % (missing) POTASSIUM 2024-11-16 04: [facility] 4.2 mmol/l As of August 2022 testing method has changed, this may include reference ranges. RED BLOOD COUNT 2024-11-16 04: [facility] 4.40 10 6/ul (missing) PT - PROTHROMBIN TIME 2024-11-16 04: [facility] 40.3 secs Y WARFARI N GFR - MDRD 2024-11-16 04: [facility] 57 (missin g) The IDMS-traceable MDRD Study [...] last updated April 2011. ANION GAP 2024-11-16: [facility] 7.0 (missing ) (missing) CALCIUM 2024-11-16: [facility] 8.6 mg/dl As of August 2022 testing method has changed, this may include reference ranges. MEAN CORPUSCULAR VOLUME 2024-11-16: [facility] 89.8 fl (missing) Result panel 645 CREATININE 2024-11-17 04: [facility] 1.3 mg/dl As of August 2022 testing method has changed, this may include reference ranges. CHLORIDE 2024-11-17 04: [facility] 104 mmol/l As of August 2022 testing method has changed, this may include reference ranges. GLUCOSE 2024-11-17: [facility] 132 mg/dl As of August 2022 testing method has changed, this may include reference ranges. SODIUM 2024-11-17 04: [facility] 138 mmol/l (missing) CARBON DIOXIDE - CO2 2024-11-17 04:28 [facility] 28 mmol/l As of Aug testing method has changed, this may include reference ranges. POTASSIUM 2024-11-17: [facility] 3.8 mmol/l As of August 2022 testing method has changed, this may include reference ranges. BUN - BLOOD UREA NITROGEN 2024-11-17: [facility] 37 mg/dl As of Aug testing method has changed, this may include reference ranges. GFR - MDRD 2024-11-17: [facility] 52 (jaylon alfaro) The IDMS-traceable MDRD Study [...] last updated April 2011. ANION GAP 2024-11-17: [facility] 6.0 (missing ) (missing) CALCIUM 2024-11-17: [facility] 8.5 mg/dl As of August 2022 testing method has changed, this may include reference ranges. Social History date description facility 2024-09-27 00:00 Tobacco smoking consumption unk nown (finding) [facility] 2024-09-27 00:00 Ex-smoker (finding) [facility] 2024-10-23 00:00 Ex-smoker (finding) [facility] Vital Signs date measurement value units 2024-09-27 [...]
== END 2024-11-17 11:25 | disposition hospice, home (50) | DRG 196 ==
LOC: ED 17:44 → SUATTDRO 20:35 → ICU 20:35
PROVIDERS: ADMIT Physician Assistant Medical; ATTEND Student in an Organized Health Care Education/Training Program
DX: J84.10 Pulmonary fibrosis, unspecified; E87.3 Alkalosis; R13.19 Other dysphagia; Z79.899 Other long term (current) drug therapy; J43.9 Emphysema, unspecified; I08.3 Combined rheumatic disorders of mitral, aortic and tricuspid valves; Z66 Do not resuscitate; I48.11 Longstanding persistent atrial fibrillation; I27.81 Cor pulmonale (chronic); F41.9 Anxiety disorder, unspecified; J84.112 Idiopathic pulmonary fibrosis; I48.91 Unspecified atrial fibrillation; I10 Essential (primary) hypertension; I37.1 Nonrheumatic pulmonary valve insufficiency; Z99.81 Dependence on supplemental oxygen; Z51.5 Encounter for palliative care; J96.21 Acute and chronic respiratory failure with hypoxia; Z87.891 Personal history of nicotine dependence; Z79.01 Long term (current) use of anticoagulants; Z11.52 Encounter for screening for COVID-19